=== PATIENT | male | born 1965 | race Caucasian/White ===

== ENCOUNTER 2018-07-26 11:19 | Outpatient (CLI) | payer MEDICARE, SELFPAY ==
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
== END 2018-07-26 11:39 ==
PROVIDERS: PCP Physician Assistant Medical; Visit Provider Specialist/Technologist Athletic Trainer
DX: M54.2 Cervicalgia (principal); M25.511 Pain in right shoulder; M54.6 Pain in thoracic spine; M47.813 Spondylosis without myelopathy or radiculopathy, cervicothoracic region
CPT/HCPCS: 72050; 72072; 73030

== ENCOUNTER 2018-09-17 12:58 | Outpatient (REF) | payer MEDICARE, SELFPAY ==
[2018-09-17 21:58] LABS: Absolute Basophil Count 0.03 k/cumm (0.0-0.2); Absolute Eosinophil Count 0.18 k/cumm (0.0-0.7); Absolute Lymphocyte Count 1.71 k/cumm (1.2-3.4); Absolute Monocyte Count 0.63 k/cumm (0.11-0.7); Absolute Neutrophil Count 3.81 k/cumm (1.2-6.7); Basophils % 0.5; Eosinophils % 2.8; HCT 44.5 % (40.0-50.0); HGB 15.1 g/dL (13.5-17.5); Lymphocytes % 26.9; Mean Corp. HGB Concentration 33.9 g/dL (32.0-36.0); Mean Corpuscular Hemoglobin 31.6 pg (27.0-33.0); Mean Corpuscular Volume 93.1 fL (80-95); Mean Platelet Volume 10.3 fL (8.0-11.0); Monocytes % 9.9; Neutrophils % 59.9; Platelet Count 237 x1000/uL (130-400); RBC 4.78 m/cumm (4.50-6.00); RBC Distribution Width 12.5 % (11.8-14.1); White Blood Cell Count 6.36 k/cumm (4.4-10.8)
[2018-09-17 22:15] LABS: ALT 46 U/L (12-78); AST 66 U/L (15-37); Albumin 4.2 g/dL (3.4-5.0); Alkaline Phosphatase 97 U/L (46-116); Amylase 70 U/L (25-115); Anion Gap 11.8 mmol/L (3-11); BUN 10 mg/dL (7-18); CO2 31.2 mmol/L (21.0-32.0); CREATININE 0.86 mg/dL (0.70-1.30); Calcium 9.8 mg/dL (8.5-10.1); Chloride 96 mmol/L (98-107); Glucose 106 mg/dL (70-100); Potassium 4.3 mmol/L (3.5-5.1); Sodium 139 mmol/L (136-145); Total Protein 7.9 g/dL (6.4-8.2)
== END 2018-09-17 13:18 ==
LOC: NCHCN 12:58
PROVIDERS: PCP Physician Assistant Medical; Visit Provider Nurse Practitioner Family
DX: R10.9 Unspecified abdominal pain (principal); M54.2 Cervicalgia; M54.6 Pain in thoracic spine
CPT/HCPCS: 80053; 82150; 85025

== ENCOUNTER 2018-09-24 00:43 | Outpatient (CLI) | payer MEDICARE, SELFPAY ==
[2018-09-24] MEDS: Breeza Beverage 473 ML BTL PO ×2 (08:42→08:43)
[2018-09-24] MEDS: Omnipaque 350 MG/ML 50 ML BTL PO (08:42)
--- NOTE | 2018-09-24 10:09 | DI.CT_ITS ---
SYMPTOMS/DIAGNOSIS: ABDOMINAL PAIN, R10.9, BLOATING, RIGHT UPPER QUADRANT PAIN, NO SURGERY ABDOMINAL AND PELVIC CT: CT examination of the abdomen and pelvis was performed with a bolus infusion of 100 cc of Omnipaque 350 and ingestion of dilute barium. Images obtained through the lung bases are unremarkable. Note is made of a moderate-sized hiatal hernia. Liver, spleen, pancreas, gallbladder and bile ducts are unremarkable in appearance. Adrenals and kidneys appear normal. No urinary tract calcification or obstruction. No significant abdominal wall hernia identified. No abdominal or pelvic adenopathy seen. Appendix appears normal. No evidence of diverticulitis or bowel obstruction. Bladder is moderately distended and has a somewhat irregularly thickened wall, question chronic bladder outlet obstruction versus cystitis. CONCLUSION: 1. Hiatal hernia. 2. Questionable bladder wall thickening, cystitis versus chronic outlet obstruction.
[2018-09-24] MEDS: Omnipaque 350 MG/ML 100 ML BTL IJ (10:10)
== END 2018-09-24 01:03 ==
PROVIDERS: PCP Nurse Practitioner Family; Visit Provider Nurse Practitioner Family
DX: R10.11 Right upper quadrant pain (principal); R14.0 Abdominal distension (gaseous); K44.9 Diaphragmatic hernia without obstruction or gangrene; N32.9 Bladder disorder, unspecified
CPT/HCPCS: 74177; J3490; Q9967

== ENCOUNTER 2018-09-27 01:31 | Outpatient (CLI) | payer MEDICARE, SELFPAY ==
--- NOTE | 2018-09-27 09:39 | DI.COMBO_ITS ---
SYMPTOM/DIAGNOSIS: NECK PAIN, M54.2. THORACIC BACK PAIN M54.9 MR C-SPINE: The examinations were carried out according to the usual protocol. MR C-SPINE: The vertebral bodies are normal. The alignment of the vertebra is normal. The cervical medullar junction is unremarkable. The spinal cord appears intrinsically normal. Note is made of varying degrees of disc degeneration. At C2-C3 there are small osteophytes resulting in right sided mild left neural foraminal narrowing without significant spinal stenosis. At C3-C4 disc osteophyte complex prominence is noted combining with uncinate hypertrophy and flattening of the joints of Luschka with resultant mild to moderate right and mid left neural foraminal narrowing without significant spinal stenosis. At C4-C5 osteophytic changes are demonstrated and there is mild right and very mild left neural foraminal narrowing without significant spinal stenosis. At C5-C6 there is disc osteophyte complex prominence with apparent uncinate hypertrophy with resultant moderate right and mild to moderate left neural foraminal stenosis and narrowing without significant spinal stenosis. ' Evaluation of the C6-C7 level reveals disc osteophyte complex which in combination with uncinate hypertrophy leads to mild right and mild to moderate left neural foraminal stenosis without evidence of spinal stenosis. At C7-T1 small osteophytic spurring is identified without significant neuroforaminal or spinal stenosis. SUMMARY: Multi-level degenerative disc disease is demonstrated as described above and there is multi-level foraminal stenosis without evidence of significant spinal stenosis.
--- NOTE | 2018-09-27 10:13 | DI.MRI_ITS ---
SYMPTOM/DIAGNOSIS: THORACIC BACK PAIN, M54.9 THORACIC SPINE MRI: There is no evidence of fracture. The alignment appears normal. The cord signal is normal. There are small endplate osteophytes and mild disc bulging as well as Schmorl's nodes at multiple levels. There is no significant disc herniation or central canal stenosis. No neural foraminal narrowing is seen. IMPRESSION: Degenerative disc changes. No significant disc herniation, central canal stenosis or neural foraminal narrowing.
--- NOTE | 2018-09-27 16:05 | DI.VRAD_ITS ---
EXAM: MR Thoracic Spine Without Contrast EXAM DATE/TIME: 09/27/2018 10:10 AM CLINICAL HISTORY: 53 years old, male; Pain; Pain in thoracic spine; Without myelpathy or radiculopathy; Patient HX: Thoracic back pain TECHNIQUE: Multiplanar magnetic resonance images of the thoracic spine without intravenous contrast. COMPARISON: CR XR thoracic spine complete 07/26/2018 12:07 PM FINDINGS: Vertebral body heights are intact. Alignment is maintained. The spinal cord appears normal in signal. There are varying degrees of disc desiccation indicating intervertebral disc degeneration. There are multilevel Schmorl's nodes. A few small vertebral body hemangiomas are present. The visualized mediastinal and abdominal structures appear unremarkable. T1-2: Small broad-based central protrusion without significant neural foraminal narrowing or spinal stenosis. T2-3: No significant disc displacement. T3-4: Very small broad-based right paracentral protrusion without significant neural foraminal narrowing or spinal stenosis. T4-5: Small broad-based left paracentral protrusion without significant neural foraminal narrowing or spinal stenosis. T5-6: Small broad-based left paracentral protrusion without significant neural foraminal narrowing or spinal stenosis. T6-7: No significant disc displacement. T7-8: Very small broad-based central protrusion without significant neural foraminal narrowing or spinal stenosis. T8-9: Small broad-based central protrusion without significant neural foraminal narrowing or spinal stenosis. T9-10: Very small broad-based right paracentral protrusion without significant neural foraminal narrowing or spinal stenosis. T10-11: No significant disc displacement. T11-12: Very small bulge leading to very mild right neural foraminal narrowing without significant spinal stenosis. T12-L1: Very small broad-based right paracentral protrusion without significant neural foraminal narrowing or spinal stenosis. If surgery is considered, recommend level confirmation. IMPRESSION: Mild multilevel disc desiccation indicating intervertebral disk degeneration with small disc displacements as described. Dictated and Authenticated by: Jerome Cervantes MD. Ordering:SKY Branham MD
--- NOTE | 2018-09-27 16:09 | DI.VRAD_ITS ---
EXAM: MR Cervical Spine Without Contrast EXAM DATE/TIME: 09/27/2018 9:37 AM CLINICAL HISTORY: 53 years old, male; Pain; Neck pain; Patient HX: Neck pain. TECHNIQUE: Multiplanar magnetic resonance images of the cervical spine without contrast. COMPARISON: CR XR cervical spine comp 4-5V 07/26/2018 11:58 AM FINDINGS: Vertebral body heights are intact. Alignment is maintained. The cervicomedullary junction appears unremarkable. The spinal cord appears normal in signal. There are varying degrees of disc desiccation indicating intervertebral disc degeneration. C2-3: Small osteophytic ridge leading to mild right ovarian mild left neural foraminal narrowing without significant spinal stenosis. C3-4: Disc osteophyte complex combining with uncinate hypertrophy to lead to mild to moderate right and mild left neural foraminal narrowing without significant spinal stenosis. C4-5: Small osteophytic ridge leading to mild right and very mild left neural foraminal narrowing without significant spinal stenosis. C5-6: Disc osteophyte complex combining with uncinate hypertrophy to lead to moderate right and mild to moderate left neural foraminal narrowing without significant spinal stenosis. C6-7: Disc osteophyte complex combining with uncinate hypertrophy to lead to mild right and mild to moderate left neural foraminal narrowing without significant spinal stenosis. C7-T1: Small osteophytic ridge without significant neural foraminal narrowing or spinal stenosis. If surgery is considered, recommend level confirmation. IMPRESSION: Multilevel disc desiccation indicating intervertebral disk degeneration with disc displacements as described. Dictated and Authenticated by: Jerome Cervantes MD. Ordering:SKY Branham MD
== END 2018-09-27 01:51 ==
PROVIDERS: PCP Nurse Practitioner Family; Visit Provider Nurse Practitioner Family
DX: M54.2 Cervicalgia (principal); M54.6 Pain in thoracic spine; M25.78 Osteophyte, vertebrae; M50.33 Other cervical disc degeneration, cervicothoracic region
CPT/HCPCS: 72141; 72146

== ENCOUNTER 2018-10-04 19:11 | Outpatient (REF) | payer MEDICARE, SELFPAY | END 2018-10-04 19:31 | LOC: NCHCN 19:11 | PROVIDERS: PCP Nurse Practitioner Family; Visit Provider Nurse Practitioner Family | DX: R35.0 Frequency of micturition (principal); R11.2 Nausea with vomiting, unspecified | CPT/HCPCS: 87086 ==

== ENCOUNTER 2018-10-08 13:17 | Outpatient (REF) | payer MEDICARE, SELFPAY ==
[2018-10-11 13:12] LABS: Helicobacter pylori Ag, Feces Negative (NEGAT)
== END 2018-10-08 13:37 ==
LOC: NCHCN 13:17
PROVIDERS: PCP Nurse Practitioner Family; Visit Provider Nurse Practitioner Family
DX: R11.2 Nausea with vomiting, unspecified (principal); R10.9 Unspecified abdominal pain
CPT/HCPCS: 87338

== ENCOUNTER → 2018-10-23 13:17 | Outpatient (BNVA) | payer MEDICARE, SELFPAY | PROVIDERS: PCP Nurse Practitioner Family; Referring Provider Nurse Practitioner Family; Visit Provider Nurse Practitioner Gerontology | DX: N40.1 Benign prostatic hyperplasia with lower urinary tract symptoms (principal); R35.0 Frequency of micturition; N32.89 Other specified disorders of bladder | CPT/HCPCS: 99215 ==

== ENCOUNTER → 2018-10-26 10:43 | Outpatient (BNVA) | payer MEDICARE, SELFPAY | PROVIDERS: PCP Nurse Practitioner Family; Referring Provider Nurse Practitioner Family; Visit Provider Surgery | DX: R11.10 Vomiting, unspecified (principal); R19.7 Diarrhea, unspecified | CPT/HCPCS: 99203; 99213 ==

== ENCOUNTER 2018-11-01 12:36 | Outpatient (REF) | payer MEDICARE, SELFPAY ==
[2018-11-01 14:56] LABS: Bilirubin Negative (Negative); Blood Negative (Negative); Clarity Clear; Glucose Negative (Negative); Ketones Negative (Negative); Leukocyte Esterase Negative (Negative); Nitrite Negative (Negative); Urobilinogen 0.2 EU/dL (Up TO 0.2)
[2018-11-02 12:44] LABS: Campylobacter PCR SEE COMMENTS; Salmonella PCR SEE COMMENTS; Shiga Toxin PCR SEE COMMENTS; Shigella/Enteroinvasive Ecoli SEE COMMENTS
== END 2018-11-01 12:56 ==
LOC: LBN 12:36
PROVIDERS: Surgery; PCP Nurse Practitioner Family; Visit Provider Nurse Practitioner Gerontology
DX: N32.89 Other specified disorders of bladder (principal); N40.1 Benign prostatic hyperplasia with lower urinary tract symptoms; R35.0 Frequency of micturition; R19.7 Diarrhea, unspecified
CPT/HCPCS: 87329; 87505; 81003; 87230; 87324

== ENCOUNTER 2018-11-06 09:14 | Day surgery (SDC) | payer MEDICARE, SELFPAY ==
--- NOTE | 2018-11-06 06:43 | W.PM.ENDDOP ---
Date of service: 11/06/18 Time of Service: 10:10 Endoscopy Report DATE OF PROCEDURE: 11/06/18 PRE-OP DIAGNOSIS: Diarrhea and Vomiting POST-OP DIAGNOSIS: other (Duodenitis, gastritis, esophagitis, Hiatal hernia, Colon polyps, ?iliitis) PROCEDURE: 1. EGD with biopsies by cold forceps 2. Colonoscopy with polypectomy by cold forceps and hot snare 3. 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 Morales is a pleasant 53 year old male with emesis most ly in the am and diarrhea who was seen in the office to discuss an EGD and Colonoscopy. Risks, benefits and complications have been reviewed. Complications include but are not limited to bleeding, pain, perforation, missed small lesion/polyp, sore throat, aspiration and adverse reaction to the medications. Questions were entertained and answered to their satisfaction and they wished to proceed. No guarantees were given or implied. PREP: Miralax/Dulcolax PROCEDURE START TIME: 10:10 PROCEDURE END TIME: 11:05 COLONOSCOPY RETRACTION TIME: 37 FINDINGS: 1. Upper endoscopy- Mild inflammation of the duodenum, severe inflammation of the stomach and severe inflammation of the esophagus 2. Large rectal polyp concerning for cancer 3. 2 other polyps PROCEDURE DESCRIPTION: After informed consent was obtained the patient was take to the procedure room and placed in a supine position. Monitors were applied and a time out was done. The patients name, date of , procedure type, allergies to medications and metal in their body was reviewed. A bite block was placed and the patient was sedated. Once sedated and comfortable the gastroscope was advanced through the oropharynx which was grossly normal into the esophagus. The proximal and mid-esophagus were normal. In the distal esophagus there was severe inflammation as well as some scar tissue. The scope was advanced into the stomach and through the pylorus into the 3rd portion of the duodenum. The duodenum was noted to have some mild inflammation. Biopsies were done of the first part of the duodenum. The scope was retracted back into the stomach and biopsies were done to rule out H. pylori. There were no ulcers. The scope was retro-flexed. The cardia and fundus were noted to be normal. There was a small sliding hiatal hernia noted. The scope was retracted back into the esophagus and biopsies were done of the GE junction to rule out Pugh's. The Z line was regular. The GE junction was at 32 cm. While the patient was still sedated they were placed in a left decubitous position. A rectal exam was done. External exam was normal. Internal exam revealed a normal sphincter tone and no palpable masses. The scope was then introduced and retro-flexed. No internal hemorrhoids were identified. The scope was then advanced to the cecum without difficulty. The TI and appendiceal orifice were identified. The prep was adequate. The scope was advanced into the terminal ileum for about 15 cm. Some mild inflammation was noted and biopsies were done to rule out colitis. The scope was then slowly retracted over 37 minutes back into the rectum. One polyp was removed in the proximal descending colon with cold forceps. Another descending pedunculated colon polyp was removed with a hot snare. Another larger polyp, measuring about 3 cm, was removed in the rectum with a hot snare. The mucosa was then tattooed with 2 cc of blue dye. The scope was removed and the patient was woken up and taken back to Same day surgery in stable condition. The patient tolerated the procedure well and there were no immediate complications. Follow up: Depends on final pathology. Follow up in 2-3 weeks.
--- NOTE | 2018-11-06 06:53 | W.PM.DSUDISC ---
Discharge Plan Disposition Patient Disposition: HOME Condition: Good Discharge Details Reason For Visit: Diarrhea and Vomiting Attending Provider: Martina Lopez Primary Care Provider: Carrol Fournier Home Meds and New Rx's Prescriptions: New omeprazole 40 mg capsule,delayed release(DR/EC) 40 mg PO BID Qty: 60 RF: 1 Continued morphine [MS Contin] 60 mg tablet extended release 60 mg PO Q8H RF: 0 morphine [MS Contin] 15 mg tablet extended release 15 mg PO Q8H RF: 0 Narcan 4 mg/actuation spray,non-aerosol 1 spray BERNARDO ONCE PRNRF: 0 nitroglycerin 0.4 MG tablet, sublingual 0.4 mg Sublingual PRN RF: 0 oxycodone 10 MG tablet 10 mg PO Q6H PRN RF: 0 Discontinued polyethylene glycol 3350 17 gram powder in packet 255 g PO DAILY Qty: 15 RF: 0 bisacodyl [Dulcolax (bisacodyl)] 5 mg tablet,delayed release (DR/EC) 5 mg PO ONCE Qty: 4 RF: 0 ibuprofen 800 MG tablet 800 mg PO Q8H PRN RF: 0 Discharge Instructions Instructions: Colonoscopy (DC), Upper Endoscopy (DC), Diet for Stomach Ulcers and Gastritis (GEN), Duodenitis (DC), Gastritis (DC), Esophagitis (DC), Colorectal Polyps (DC) Additional Instructions: Findings: Inflammation in the small bowel, stomach and esophagus Large polyp in the rectum and 2 other smaller polyps Follow up: 2-3 weeks Please call if you develop: fevers >101.5 Nausea or Vomiting Abdominal pain that is not transient DAY SURGERY UNIT POST COLONOSCOPY INSTRUCTIONS 1. Because there will be medication in your system for the next 24 hours, you may feel a little sleepy. Your coordination will be affected. Therefore: a. Do not drive or operate dangerous equipment for 24 hours. b. Do not drink alcohol beverages for 24 hours (not even beer). c. Plan to go home and rest for the day. 2. Generally there are no restrictions on your activity after a day or so has gone by, but you may feel a bit fatigued for a few days. 3 After you arrive home you may have a light meal and return to a normal diet as you can tolerate it without feeling sick to your stomach. 4. After surgery, you may feel pain or discomfort. This should be only transient, but if it persists please contact your doctor. 5. If there are any questions regarding the findings of your procedure, please feel free to contact your doctor. 6. If you are unable to contact your doctor with a problem, contact the hospital at [phone]. 7. Continue all your regular medications unless directed otherwise. I understand the above instructions and have no questions. Signature of Patient or Responsible Adult Escort Date/Time Name of Responsible Adult Escort Signature of Nurse Date/Time Referrals: Martina Lopez MD [ [facility] STAFF PHYSICIAN] - Activity:: Activity as Tolerated Diet:: low acid Discharge Orders Discharge Orders: Discharge Order (Routine); Ordered 11/06/18 Ordered By: Martina Lopez DS: Diagnosis Discharge Diagnosis (1) H/O esophagogastroduodenoscopy: Status: Chronic (2) S/P colonoscopy: Status: Acute (3) Colorectal polyp detected on colonoscopy: Status: Acute (4) Esophagitis determined by endoscopy: Status: Acute (5) Gastritis and duodenitis: Status: Acute
[2018-11-06 09:37] VITALS: BP 126/100; PULSE 120; RESP 18; TEMP 36.2; O2SAT 99
[2018-11-06] MEDS: Lactated Ringers 1,000 ML 80 ML IV (09:54)
--- NOTE | 2018-11-06 10:12 | BOWEL_PTH ---
PATIENT: Ismael Morales LOC: [facility] U#:[id number] AGE/SX: 53/M ROOM: RE11/06/[address]: Martina Lopez MD : 1965 BED: DIS: 11/06/2018 SPEC #: [id number] RECD: 11/06/18 12:52 STATUS: BRANDY RE #: [id number] JENSEN: 11/06/18 10:[address]: Martina Lopez DEPT: Surgical Specimen RECD BY: Breanne Harrell ENTERED: 11/06/18 12:54 SP TYPE: Bowel OTHR DR: Carrol Fournier Tissues: 1 - BIOPSY BOWEL 2 - STOMACH BIOPSY 3 - ESOPHAGUS BIOPSY 4 - BIOPSY BOWEL 5 - BIOPSY BOWEL 6 - BIOPSY BOWEL 7 - BIOPSY BOWEL Procedures: GROSS AND MICRO LEVEL 4 Comments: [id number]
[2018-11-06 11:47] VITALS: BP 147/101; PULSE 96; RESP 18; TEMP 36.8; O2SAT 96
== END 2018-11-06 12:50 | disposition home or self-care (01) ==
LOC: SUR 09:15
PROVIDERS: PCP Nurse Practitioner Family; Visit Provider Surgery
PROC: (CPT 45385; principal; 2018-11-06 10:15)
DX: R19.7 Diarrhea, unspecified (principal); D12.4 Benign neoplasm of descending colon; D12.8 Benign neoplasm of rectum; K63.5 Polyp of colon; R11.2 Nausea with vomiting, unspecified; K29.00 Acute gastritis without bleeding; K31.89 Other diseases of stomach and duodenum; K21.0 Gastro-esophageal reflux disease with esophagitis; K44.9 Diaphragmatic hernia without obstruction or gangrene; F17.210 Nicotine dependence, cigarettes, uncomplicated
CPT/HCPCS: 45385; 45380; 45381; 43239; 88305; J3010

== ENCOUNTER → 2019-02-01 08:23 | Outpatient (BNVA) | payer MEDICARE, SELFPAY | PROVIDERS: PCP Nurse Practitioner Family; Referring Provider Nurse Practitioner Family; Visit Provider Surgery | DX: R10.31 Right lower quadrant pain (principal); G89.29 Other chronic pain | CPT/HCPCS: 99213 ==

== ENCOUNTER → 2019-03-14 12:47 | Outpatient (BNVA) | payer MEDICARE, SELFPAY | PROVIDERS: PCP Nurse Practitioner Family; Referring Provider Nurse Practitioner Family; Visit Provider Psychiatry & Neurology Neurology | DX: G25.0 Essential tremor (principal); F44.4 Conversion disorder with motor symptom or deficit | CPT/HCPCS: 99214 ==

== ENCOUNTER 2019-03-27 10:37 | Outpatient (REF) | payer MEDICARE, SELFPAY ==
[2019-03-27 21:18] LABS: Calculated LDL 203 mg/dL; Cholesterol 280 mg/dL (50-200); Glucose 111 mg/dL (70-100); HDL Cholesterol 65 mg/dL (40-60); Triglyceride 64 mg/dL (30-150)
== END 2019-03-27 10:57 ==
LOC: NCHCN 10:37
PROVIDERS: PCP Nurse Practitioner Family; Visit Provider Nurse Practitioner Family
DX: R03.0 Elevated blood-pressure reading, without diagnosis of hypertension (principal); R25.1 Tremor, unspecified; E78.00 Pure hypercholesterolemia, unspecified; G89.29 Other chronic pain; F11.20 Opioid dependence, uncomplicated; M50.30 Other cervical disc degeneration, unspecified cervical region; M51.34 Other intervertebral disc degeneration, thoracic region
CPT/HCPCS: 80061; 82947; 83721

== ENCOUNTER → 2019-05-13 10:01 | Outpatient (BNVA) | payer MEDICARE, SELFPAY | PROVIDERS: PCP Nurse Practitioner Family; Visit Provider Nurse Practitioner Adult Health | DX: R25.1 Tremor, unspecified (principal); Z79.891 Long term (current) use of opiate analgesic; F41.9 Anxiety disorder, unspecified | CPT/HCPCS: 99213 ==

== ENCOUNTER 2019-05-28 15:56 | Outpatient (REF) | payer MEDICARE, SELFPAY ==
[2019-05-28 21:41] LABS: Abs Immature Grans 0.01 k/cumm (0.0-0.09); Absolute Basophil Count 0.04 k/cumm (0.0-0.2); Absolute Eosinophil Count 0.18 k/cumm (0.0-0.7); Absolute Lymphocyte Count 1.62 k/cumm (1.2-3.4); Absolute Monocyte Count 0.48 k/cumm (0.11-0.7); Absolute Neutrophil Count 2.88 k/cumm (1.2-6.7); Basophils % 0.8; Eosinophils % 3.5; HCT 43.3 % (40.0-50.0); HGB 14.2 g/dL (13.5-17.5); Immature Grans % 0.2; Lymphocytes % 31.1; Mean Corp. HGB Concentration 32.8 g/dL (32.0-36.0); Mean Corpuscular Hemoglobin 30.7 pg (27.0-33.0); Mean Corpuscular Volume 93.7 fL (80-95); Mean Platelet Volume 10.6 fL (8.0-11.0); Monocytes % 9.2; Neutrophils % 55.2; Platelet Count 246 x1000/uL (130-400); RBC 4.62 m/cumm (4.50-6.00); White Blood Cell Count 5.21 k/cumm (4.4-10.8)
[2019-05-28 21:59] LABS: HDL Cholesterol 59 mg/dL (40-60); LDL CHOLESTEROL 118 mg/dL (<100)
[2019-05-29 09:13] LABS: ALT 57 U/L (16-63); AST 72 U/L (15-37); Creatine Kinase 145 U/L (39-308)
== END 2019-05-28 16:16 ==
LOC: NCHCN 15:56
PROVIDERS: PCP Nurse Practitioner Family; Visit Provider Nurse Practitioner Family
DX: E78.5 Hyperlipidemia, unspecified (principal); R23.8 Other skin changes; I10 Essential (primary) hypertension
CPT/HCPCS: 82550; 83721; 83718; 84450; 84460; 85025

== ENCOUNTER 2019-07-19 02:19 | Outpatient (CLI) | payer MEDICARE, SELFPAY | END 2019-07-19 02:39 | PROVIDERS: PCP Nurse Practitioner Family; Visit Provider Nurse Practitioner Family | DX: R00.2 Palpitations (principal); I49.1 Atrial premature depolarization; I49.3 Ventricular premature depolarization | CPT/HCPCS: 93225 ==

== ENCOUNTER 2019-07-22 15:12 | Outpatient (CLI) | payer MEDICARE, SELFPAY ==
--- NOTE | 2019-07-23 08:04 | W.HOLTRPT ---
Holter Monitor Report Holter Monitor Note: This is a 48-hour Holter monitor worn for the indication of palpitations?the majority of beats were normal sinus with a mean heart rate of 90, minimum heart rate of 60, maximum heart rate of 165 bpm. ?There were no episodes of supraventricular tachycardia. There were rare PACs (less than 1%). There were no runs of multiple PACs. ?There were no episodes of ventricular tachycardia. There were rare (less than 1%) single ventricular ectopic beats. There were no couplets or triplets. ?There were no episodes of atrial fibrillation. ?There were no pauses greater than 3 seconds and no episodes of high degree heart block. Date of service: 07/23/19 Time of Service: 08:04
== END 2019-07-22 15:32 ==
PROVIDERS: PCP Nurse Practitioner Family; Visit Provider Nurse Practitioner Family
DX: R00.2 Palpitations (principal); I49.1 Atrial premature depolarization; I49.3 Ventricular premature depolarization
CPT/HCPCS: 93226

== ENCOUNTER 2019-07-23 08:04 | Outpatient (CLI) | payer MEDICARE, SELFPAY | END 2019-07-23 08:24 | PROVIDERS: PCP Nurse Practitioner Family; Referring Provider Nurse Practitioner Family; Visit Provider Internal Medicine Cardiovascular Disease | DX: R00.2 Palpitations (principal); I49.1 Atrial premature depolarization; I49.3 Ventricular premature depolarization | CPT/HCPCS: 93227 ==

== ENCOUNTER 2019-12-12 12:27 | Outpatient (REF) | payer MEDICARE, SELFPAY ==
[2019-12-12 19:46] LABS: Absolute Basophil Count 0.03 k/cumm (0.0-0.2); Absolute Eosinophil Count 0.23 k/cumm (0.0-0.7); Absolute Lymphocyte Count 2.27 k/cumm (1.2-3.4); Absolute Monocyte Count 0.66 k/cumm (0.11-0.7); Absolute Neutrophil Count 3.46 k/cumm (1.2-6.7); Basophils % 0.5; Eosinophils % 3.5; HCT 45.1 % (40.0-50.0); HGB 15.2 g/dL (13.5-17.5); Lymphocytes % 34.1; Mean Corp. HGB Concentration 33.7 g/dL (32.0-36.0); Mean Corpuscular Hemoglobin 31.8 pg (27.0-33.0); Mean Corpuscular Volume 94.4 fL (80-95); Mean Platelet Volume 10.1 fL (8.0-11.0); Monocytes % 9.9; Platelet Count 271 x1000/uL (130-400); RBC 4.78 m/cumm (4.50-6.00); RBC Distribution Width 13.3 % (11.8-14.1); White Blood Cell Count 6.65 k/cumm (4.4-10.8)
[2019-12-12 20:00] LABS: ALT 61 U/L (16-63); AST 72 U/L (15-37); Albumin 3.8 g/dL (3.4-5.0); Alkaline Phosphatase 94 U/L (46-116); Anion Gap 8.6 mmol/L (3-11); BUN 5 mg/dL (7-18); Bilirubin, Total 0.5 mg/dL (0.2-1.0); CO2 31.4 mmol/L (21.0-32.0); CREATININE 0.88 mg/dL (0.70-1.30); Calcium 8.9 mg/dL (8.5-10.1); Chloride 98 mmol/L (98-107); Glucose 84 mg/dL (74-106); Potassium 4.8 mmol/L (3.5-5.1); Sodium 138 mmol/L (136-145); Total Protein 7.4 g/dL (6.4-8.2)
== END 2019-12-12 12:47 ==
LOC: NCHCN 12:27
PROVIDERS: PCP Nurse Practitioner Family; Visit Provider Nurse Practitioner Family
DX: I10 Essential (primary) hypertension (principal); E78.5 Hyperlipidemia, unspecified; F17.209 Nicotine dependence, unspecified, with unspecified nicotine-induced disorders; R14.0 Abdominal distension (gaseous); M51.34 Other intervertebral disc degeneration, thoracic region; M50.30 Other cervical disc degeneration, unspecified cervical region
CPT/HCPCS: 80053; 85025

== ENCOUNTER 2020-06-17 14:59 | Emergency (ER) | payer MEDICARE, SELFPAY ==
[2020-06-17 15:06] VITALS: BP 158/105; PULSE 97; RESP 16; TEMP 36.9; O2SAT 97
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
--- NOTE | 2020-06-17 15:30 | DI.RAD_ITS ---
EXAM: XR FOREARM RT CLINICAL HISTORY: Eval hardware TECHNIQUE: COMPARISON: CR RIGHT FOREARM from 01/08/2017 FINDINGS: Two views were obtained. There is plate and screw fixation of the distal half of the radius. No acu te fracture seen. IMPRESSION: No evidence of acute fracture. RADIATION DOSE DELIVERED: Total DLP
--- NOTE | 2020-06-17 15:36 | DI.RAD_ITS ---
EXAM: XR HAND RT COMPLETE CLINICAL HISTORY: Injury 2 weeks ago, r/o fracture TECHNIQUE: COMPARISON: CR RIGHT HAND COMPLETE from 04/27/2009 FINDINGS: Three views of the hand were obtained. There is plate and screw fixation of distal radius. There ar e minimal degenerative changes of the IP joints. There is no evidence of an acute fracture or disloc ation. Note is made of an old healed 5th metacarpal head fracture. IMPRESSION: No acute fracture. RADIATION DOSE DELIVERED: Total DLP
== END 2020-06-17 16:17 | disposition home or self-care (01) ==
PROVIDERS: Emergency Provider Registered Nurse Emergency; PCP Nurse Practitioner Family
DX: S67.21XA Crushing injury of right hand, initial encounter (principal); W27.8XXA Contact with other nonpowered hand tool, initial encounter; R20.2 Paresthesia of skin
CPT/HCPCS: 99284; 73090; 73130; L3908

== ENCOUNTER 2020-07-29 12:51 | Outpatient (REF) | payer MEDICARE, SELFPAY ==
[2020-07-29 22:26] LABS: ALT 81 U/L (16-63); AST 101 U/L (15-37); Anion Gap 8.3 mmol/L (3-11); BUN 9 mg/dL (7-18); CO2 29.7 mmol/L (21.0-32.0); CREATININE 0.87 mg/dL (0.70-1.30); Calcium 9.7 mg/dL (8.5-10.1); Chloride 97 mmol/L (98-107); Glucose 103 mg/dL (74-106); HDL Cholesterol 54 mg/dL (40-60); LDL CHOLESTEROL 165 mg/dL (<100); Potassium 4.5 mmol/L (3.5-5.1); Sodium 135 mmol/L (136-145)
[2020-07-29 22:38] LABS: Creatine Kinase 172 U/L (39-308)
== END 2020-07-29 13:11 ==
LOC: NCHCN 12:51
PROVIDERS: PCP Nurse Practitioner Family; Visit Provider Nurse Practitioner Family
DX: E78.5 Hyperlipidemia, unspecified (principal); M50.30 Other cervical disc degeneration, unspecified cervical region; M51.34 Other intervertebral disc degeneration, thoracic region; I10 Essential (primary) hypertension; R25.1 Tremor, unspecified; R73.03 Prediabetes; R20.2 Paresthesia of skin
CPT/HCPCS: 80048; 82550; 83721; 83718; 84450; 84460

== ENCOUNTER 2020-08-26 13:07 | Outpatient (REF) | payer MEDICARE, SELFPAY ==
[2020-08-26 21:18] LABS: Iron 99 ug/dL (65-175); Total Iron Binding Capacity 359 ug/dL (250-450); Transferrin Sat 28 % (20-55)
[2020-08-26 21:47] LABS: ALT 58 U/L (16-63); AST 67 U/L (15-37); Alkaline Phosphatase 92 U/L (46-116); Bilirubin, Total 0.4 mg/dL (0.2-1.0); Ferritin 152 ng/mL (26-388); TSH (W/Ref FT4) 1.28 uIU/mL (0.36-3.74); Total Protein 7.5 g/dL (6.4-8.2)
[2020-08-26 21:55] LABS: Bilirubin, Direct 0.17 mg/dL (0.00-0.20)
[2020-08-28 09:32] LABS: Hepatitis C Ab w Rflx HCV PCR Negative (Negative)
[2020-08-28 10:01] LABS: Hepatitis B Surface Ag Negative (Negative)
== END 2020-08-26 13:27 ==
LOC: NCHCN 13:07
PROVIDERS: PCP Nurse Practitioner Family; Visit Provider Nurse Practitioner Family
DX: R74.8 Abnormal levels of other serum enzymes (principal); I10 Essential (primary) hypertension; R73.03 Prediabetes; E78.5 Hyperlipidemia, unspecified; Z11.59 Encounter for screening for other viral diseases; R25.1 Tremor, unspecified
CPT/HCPCS: 80076; 86803; 87340; 82728; 83540; 83550; 84443

== ENCOUNTER 2020-10-12 01:31 | Outpatient (CLI) | payer OTHER, SELFPAY ==
--- NOTE | 2020-10-12 | DI.US_ITS ---
EXAM: US ABDOMEN CLINICAL HISTORY: ELEVATED LIVER ENZYMES,R74.8,? FATTY LIVER TECHNIQUE: Ultrasound of complete upper abdomen performed using standard protocol. COMPARISON: US SCROTUM US from 12/20/[address] scan performed 09/24/2018 FINDINGS: There is no ascites evident. LIVER: Liver is hyperechoic indicating steatosis. There are no discrete focal hepatic lesions identi fied. GALLBLADDER/BILIARY: There are no gallstones. No gallbladder wall edema nor pericholecystic fluid. The common hepatic duct isnot dilated, measuring 3-4mm at the level of sera hepatis. PANCREAS: Less than optimally seen due to overlying bowel gas. However, no obvious abnormality ident ified. SPLEEN: The spleen is not enlarged and there are no intrasplenic lesions evident. KIDNEYS:Kidneys exhibit normal size with no evidence of solid mass, calculus, nor hydronephrosis. No cortical cysts evident. ABDOMINAL AORTA: Mostly obscured by overlying bowel gas. The mid and distal abdominal aorta were not able to be identified. IVC: Normal diameter where visualized. IMPRESSION: 1. No evidence of cholelithiasis nor dilatation of the biliary tree. 2. Hepatic steatosis. Correlation with appropriate hepatic blood work is recommended. 3. There is no ascites. 4. Abdominal aorta was not well seen due to overlying bowel gas. DATA REPOSITORY:
== END 2020-10-12 01:51 ==
PROVIDERS: PCP Nurse Practitioner Family; Visit Provider Nurse Practitioner Family
DX: K76.0 Fatty (change of) liver, not elsewhere classified
CPT/HCPCS: 76700

== ENCOUNTER 2020-10-18 00:29 | Emergency (ER) | payer OTHER, SELFPAY ==
--- NOTE | 2020-10-18 00:30 | RT.EKG_ITS ---
APPROVED REPORT Exam: Resting ECG Patient Location: E HR:109 bpm ECG Measurements Heart Rate 109 AXIS OK 147 P 23 QRSd 96 QRS -29 QT 330 T 71 QTc 444 Conclusion Sinus tachycardia...rate> 99 Probable left atrial enlargement...P >50mS, <-0.10mV V1
--- NOTE | 2020-10-18 00:30 | DI.CT_ITS ---
EXAM: CT ABDOMEN PELVIS WO CLINICAL HISTORY: abdominal distention, ?ascites and pulmonary edema. TECHNIQUE: Imaging Protocol: Axial computed tomography images with coronal and sagittal reformatted images were created and reviewed. FINDINGS: ABDOMEN: Lung Bases: The is modest changes are seen in the lung bases. There is a moderate size hiatal hernia . There is scarring in the lingula. Liver: Normal density. No measurable mass. Gallbladder and biliary tract: No radiodense calculus or biliary ductal dilation. Pancreas: Normal density, no abnormal calcifications or inflammatory process. Spleen: Normal. Kidneys: Normal size, contour and axis.No radiodense stones or obstructive uropathy. No masses seen. Adrenal glands: No mass is seen. Lymph nodes: Within normal limits. Abdominal Aorta: Abdominal portion non-dilated. Atherosclerosis. PELVIS: Bladder:Symmetric distention, no gross wall thickening. Bowel: No obstruction or bowel wall thickening. The appendix measures 1.1 cm in diameter and contains high density material. No Elaine appendiceal inflammatory changes are seen to suggest acute appendici tis. The appendix has a similar appearance on the prior examination from 09/24/2018. Colonic diverti culosis but no evidence of acute diverticulitis. Peritoneal cavity: No ascites, collection or mesenteric inflammatory response Reproductive organs: Within normal limits. Bones: Degenerative changes. Soft Tissues: Within normal limits. IMPRESSION: No acute abdominal or pelvic process. No evidence of abdominal or pelvic ascites. RADIATION DOSE DELIVERED: 859.44mGy.cm Total DLP DATA REPOSITORY: All CT scans at this facility are submitted to the National Radiology Data Registry (NRDR) Dose Index Registry (DIR) with the [employer] ([employer]). RADIATION OPTIMIZATION: All CT scans at this facility use at least one of these dose optimization te chniques: automated exposure control; mA and/or kV adjustment per patient size (includes targeted exa ms where dose is matched to clinical indication); or iterative reconstruction.
[2020-10-18 00:33] VITALS: BP 152/119; PULSE 125; RESP 20; TEMP 36.5; O2SAT 98
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
[2020-10-18] MEDS: LORazepam 2 MG/ML VIAL 1 MG IVP (01:03)
[2020-10-18 01:07] LABS: Abs Immature Grans 0.03 10^3/uL (0.0-0.06); Absolute Basophil Count 0.06 10^3/uL (0.0-0.2); Absolute Lymphocyte Count 1.73 10^3/uL (1.2-3.4); Absolute Monocyte Count 0.67 10^3/uL (0.1-0.8); Absolute Neutrophil Count 6.71 10^3/uL (1.2-6.7); Basophils % 0.6; Eosinophils % 1.1; HCT 42.5 % (40.0-50.0); HGB 14.5 g/dL (13.5-17.5); Immature Grans % 0.3; Lymphocytes % 18.6; MCH 30.7 pg (27.0-33.0); MCHC 34.1 % (32.0-36.0); MCV 89.9 fL (80-95); MPV 8.9 fL (8.0-11.0); Monocytes % 7.2; Neutrophils % 72.2; Nucleated RBC 0 %; Platelet Count 249 10^3/uL (130-400); RBC 4.73 10^6/uL (4.36-5.78); RDW 13.1 % (11.8-14.1); RDW-SD 43.1 fL
[2020-10-18 01:12] VITALS: BP 184/97; PULSE 110; RESP 20; O2SAT 97
[2020-10-18 01:26] LABS: Lipase 100 U/L (73-393); Magnesium 1.7 mg/dL (1.8-2.4)
[2020-10-18 01:32] LABS: ALT 31 U/L (16-63); AST 35 U/L (15-37); Albumin 4.1 g/dL (3.4-5.0); Alkaline Phosphatase 97 U/L (46-116); Anion Gap 11.3 mmol/L (3-11); BUN 8 mg/dL (7-18); Bilirubin, Direct 0.23 mg/dL (0.00-0.20); Bilirubin, Total 0.8 mg/dL (0.2-1.0); CO2 25.7 mmol/L (21.0-32.0); CREATININE 0.93 mg/dL (0.70-1.30); Calcium 9.4 mg/dL (8.5-10.1); Chloride 100 mmol/L (98-107); Glucose 121 mg/dL (74-106); Potassium 3.5 mmol/L (3.5-5.1); Sodium 137 mmol/L (136-145); Total Protein 7.7 g/dL (6.4-8.2)
--- NOTE | 2020-10-18 01:39 | DI.VRAD_ITS ---
PROCEDURE INFORMATION: Exam: CT Abdomen And Pelvis Without Contrast Exam date and time: 10/18/2020 12:39 AM Age: 55 years old Clinical indication: Bloating; Patient HX: Abdominal distension, ? ascites TECHNIQUE: Imaging protocol: Computed tomography of the abdomen and pelvis without contrast. COMPARISON: CT Abdomen^ROUTINE ABDOMEN PELVIS WITH CONTRAST (Adult) 09/24/2018 9:59 AM FINDINGS: Mediastinal space: Moderate hiatal hernia Liver: Normal. No mass. Gallbladder and bile ducts: Normal. No calcified stones. No ductal dilation. Pancreas: Normal. No ductal dilation. Spleen: Normal. No splenomegaly. Adrenal glands: Normal. No mass. Kidneys and ureters: Normal. No hydronephrosis. Stomach and bowel: Colonic diverticulosis is present without evidence for inflammation. Appendix: No evidence of appendicitis. Intraperitoneal space: Unremarkable. No free air. No significant fluid collection. Vasculature: Unremarkable. No abdominal aortic aneurysm. Lymph nodes: Unremarkable. No enlarged lymph nodes. Urinary bladder: Unremarkable as visualized. Reproductive: Unremarkable as visualized. Bones/joints: Unremarkable. No acute fracture. Soft tissues: Unremarkable. IMPRESSION: No acute findings. No evidence for bowel obstruction or for ascites Dictated and Authenticated by: Vincent Osorio MD. Ordering:VICTOR M Cano MD
[2020-10-18 01:40] LABS: ETHANOL BLOOD < 3.0 mg/dL (<3); Troponin I < 0.05 ng/mL (<0.06)
[2020-10-18 01:49] VITALS: BP 144/97; PULSE 99; RESP 18; O2SAT 94
--- NOTE | 2020-10-18 01:50 | NUR.NOTE ---
Nursing Note: REFERAL SENT TO PRIMARY 10/17/20
[2020-10-18 02:06] LABS: Bilirubin Negative (Negative); Blood Negative (Negative); Clarity Clear (Clear); Glucose Negative (Negative); Ketones Negative (Negative); Leukocyte Esterase Negative (Negative); Nitrite Negative (Negative); Urobilinogen 0.2 EU/dL (Up TO 0.2); pH 6.5 (5-8)
== END 2020-10-18 02:00 | disposition home or self-care (01) ==
PROVIDERS: Emergency Provider Emergency Medicine; PCP Nurse Practitioner Family
DX: R14.0 Abdominal distension (gaseous) (principal); F41.9 Anxiety disorder, unspecified
CPT/HCPCS: 36415; 80053; 83690; 93005; 96374; 99285; 74176; 80320; 81003; 82248; 83735; 84484; 85025; 93010; 99284; J2060

== ENCOUNTER → 2020-12-08 13:16 | Outpatient (BNVA) | payer MEDICARE, SELFPAY | PROVIDERS: PCP Nurse Practitioner Family; Referring Provider Nurse Practitioner Family; Visit Provider Student in an Organized Health Care Education/Training Program | DX: R69 Illness, unspecified (principal) ==

== ENCOUNTER → 2021-02-04 10:20 | Outpatient (BNVA) | payer MEDICARE, SELFPAY | PROVIDERS: PCP Nurse Practitioner Family; Referring Provider Nurse Practitioner Family; Visit Provider Physical Therapy Assistant | DX: Z12.11 Encounter for screening for malignant neoplasm of colon (principal); Z86.010 Personal history of colon polyps ==

== ENCOUNTER 2021-02-09 14:40 | Outpatient (REF) | payer OTHER, SELFPAY ==
[2021-02-09 16:00] LABS: HGB 16.1 g/dL (13.5-17.5); MCHC 33.5 % (32.0-36.0); MCV 92.3 fL (80-95); MPV 10.3 fL (8.0-11.0); Platelet Count 258 10^3/uL (130-400); RDW 12.2 % (11.8-14.1); RDW-SD 41.7 fL; WBC 7.16 10^3/uL (4.4-10.8)
[2021-02-09 16:08] LABS: ALT 51 U/L (16-63); AST 42 U/L (15-37); Albumin 4.3 g/dL (3.4-5.0); Alkaline Phosphatase 86 U/L (46-116); Anion Gap 10.5 mmol/L (3-11); BUN 6 mg/dL (7-18); Bilirubin, Direct 0.2 mg/dL (0.0-0.2); Bilirubin, Total 0.7 mg/dL (0.2-1.0); CO2 29.5 mmol/L (21.0-32.0); CREATININE 0.8 mg/dL (0.70-1.30); Calcium 9.8 mg/dL (8.5-10.1); Chloride 101 mmol/L (98-107); Glucose 106 mg/dL (74-106); Potassium 4.4 mmol/L (3.5-5.1); Sodium 141 mmol/L (136-145); TSH 1.72 uIU/mL (0.36-3.74); Total Protein 7.8 g/dL (6.4-8.2)
[2021-02-09 16:15] LABS: GGT 225 U/L (15-85)
== END 2021-02-09 14:41 | disposition home or self-care (01) ==
LOC: NCHCN 14:40
PROVIDERS: PCP Nurse Practitioner Family; Visit Provider Nurse Practitioner Family
DX: D64.9 Anemia, unspecified (principal); R73.03 Prediabetes; R74.8 Abnormal levels of other serum enzymes; G89.29 Other chronic pain; Z79.891 Long term (current) use of opiate analgesic; Z87.828 Personal history of other (healed) physical injury and trauma; Z77.011 Contact with and (suspected) exposure to lead
CPT/HCPCS: 80048; 80076; 85027; 82977; 83655; 84443

== ENCOUNTER 2021-04-07 11:37 | Outpatient (REF) | payer OTHER, SELFPAY ==
[2021-04-07 15:57] LABS: Vitamin B12 445 pg/mL (193-986)
== END 2021-04-07 11:38 | disposition home or self-care (01) ==
LOC: NCHCN 11:37
PROVIDERS: PCP Nurse Practitioner Family; Visit Provider Nurse Practitioner Family
DX: R20.2 Paresthesia of skin (principal)
CPT/HCPCS: 82607

== ENCOUNTER → 2021-04-27 12:30 | Outpatient (BNVA) | payer OTHER, SELFPAY | PROVIDERS: PCP Nurse Practitioner Family; Referring Provider Nurse Practitioner Family; Visit Provider Nurse Practitioner Adult Health | DX: R00.0 Tachycardia, unspecified (principal); I10 Essential (primary) hypertension; G25.0 Essential tremor; R73.03 Prediabetes ==

== ENCOUNTER 2021-04-27 13:13 | Emergency (ER) | payer OTHER, SELFPAY ==
[2021-04-27] VITALS (30 sets, daily range): BP systolic 138–188; BP diastolic 93–132; PULSE 71–156; RESP 12–22; TEMP 36.8; O2SAT 94–100
--- NOTE | 2021-04-27 13:15 | RT.EKG_ITS ---
APPROVED REPORT Exam: Resting ECG Reason for Exam: high heart rate Patient Location: E HR:119 bpm ECG Measurements Heart Rate 119 AXIS CO 159 P 44 QRSd 93 QRS 105 QT 313 T -5 QTc 441 Conclusion Sinus tachycardia...rate> 99 Probable left atrial enlargement...P >50mS, <-0.10mV V1 Probable lateral infarct, old...Q>35mS, abnormal ST-T, V5-6 I aVL sinus tachycardia at 126, normal axis, no STEMI, nondiagnostic EKG
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
--- NOTE | 2021-04-27 14:08 | DI.CT_ITS ---
Exam(s) CT HEAD CERVICAL SPINE WO EXAM: CT HEAD CERVICAL SPINE WO CLINICAL HISTORY: palpitaitons, hypertension,tingling in face, both arms, r/o cva. TECHNIQUE: Imaging Protocol: Axial computed tomography images with coronal and sagittal reformatted images were created and reviewed COMPARISON: CT CT HEAD WO from 02/11/2021 FINDINGS: CT Head: Ventricles and Extra axial spaces: Normal in size and morphology for the patient's age. Hemorrhage: None. Cerebral parenchyma: Normal. No acute territorial infarct. Midline shift: None. Brainstem/Cerebellum: Normal. Calvarium: Normal. Visualized Paranasal sinuses/Mastoids: Mucous retention cyst or polyp in the left maxillary sinus. M ild mucosal thickening in the ethmoid air cells and maxillary sinuses bilaterally. Remaining visuali zed paranasal sinuses and mastoid air cells are clear. Soft Tissues: Unremarkable. CT Cervical Spine: Bones: No acute fracture or subluxation. Mild degenerative changes are seen in the cervical spine. A t C5-6 there are hypertrophic changes of the uncovertebral joints causing [id number] bilateral neural foraminal stenosis. Soft Tissues: Unremarkable. Lung Apices: Mild centrilobular emphysematous changes are present. Thyroid gland: Unremarkable. IMPRESSION: 1. No acute intracranial process. 2. No acute fracture or subluxation in the cervical spine. 3. Results of this exam have been verbally communicated with provider. RADIATION DOSE DELIVERED: 1,367.57mGy.cm Total DLP DATA REPOSITORY: All CT scans at this facility are submitted to the National Radiology Data Registry (NRDR) Dose Index Registry (DIR) with the [employer] (ACR). RADIATION OPTIMIZATION: All CT scans at this facility use at least one of these dose optimization te chniques: automated exposure control; mA and/or kV adjustment per patient size (includes targeted exa ms where dose is matched to clinical indication); or iterative reconstruction.
--- NOTE | 2021-04-27 14:15 | DI.RAD_ITS ---
Exam(s) XR CHEST 2V PA LATERAL EXAM: XR CHEST 2V PA LATERAL CLINICAL HISTORY: tachycardia, palpitations, r/o acute disease TECHNIQUE: 2D digital imaging was performed. COMPARISON: CR XR shoulder RT complete 2+V from 07/26/2018 FINDINGS: MEDIASTINUM: Small hiatal hernia. HEART: Normal. PULMONARY VASCULATURE: Normal. LUNGS: Clear. PLEURAL SPACE: No pleural effusion or pneumothorax. BONE:Within normal limits for the patient's age. OTHER FINDINGS:Metallic foreign bodies are again seen in the soft tissues of the chest. IMPRESSION: No acute pulmonary findings. DATA REPOSITORY: RADIATION DOSE DELIVERED:
[2021-04-27 14:19] LABS: Abs Immature Grans 0.05 10^3/uL (0.0-0.06); Absolute Basophil Count 0.06 10^3/uL (0.0-0.2); Absolute Eosinophil Count 0.08 10^3/uL (0.0-0.7); Absolute Lymphocyte Count 1.29 10^3/uL (1.2-3.4); Basophils % 0.7; Eosinophils % 0.9; HCT 47.5 % (40.0-50.0); Immature Grans % 0.6; Lymphocytes % 14.5; MCH 31.7 pg (27.0-33.0); MCHC 33.7 % (32.0-36.0); MCV 94.1 fL (80-95); MPV 9.6 fL (8.0-11.0); Monocytes % 7.9; Neutrophils % 75.4; Nucleated RBC 0 %; Platelet Count 251 10^3/uL (130-400); RBC 5.05 10^6/uL (4.36-5.78); RDW 12.5 % (11.8-14.1); RDW-SD 43.4 fL; WBC 8.88 10^3/uL (4.4-10.8)
[2021-04-27] MEDS: MORPHine 4 MG/ML SYR IVP (14:23)
[2021-04-27] MEDS: Normal Saline 500 ML IV (14:23)
[2021-04-27 14:37] LABS: ALT 42 U/L (16-63); AST 50 U/L (15-37); Albumin 4.4 g/dL (3.4-5.0); Alkaline Phosphatase 93 U/L (46-116); BUN 10 mg/dL (7-18); Chloride 100 mmol/L (98-107); Glucose 111 mg/dL (74-106); Potassium 4.2 mmol/L (3.5-5.1); Sodium 140 mmol/L (136-145); Total Protein 8.5 g/dL (6.4-8.2)
[2021-04-27 14:44] LABS: Troponin I < 0.05 ng/mL (<0.06)
== END 2021-04-27 17:18 | disposition home or self-care (01) ==
PROVIDERS: Emergency Provider Physician Assistant; PCP Nurse Practitioner Family
DX: R00.0 Tachycardia, unspecified (principal); R20.2 Paresthesia of skin; I10 Essential (primary) hypertension
CPT/HCPCS: 36415; 80053; 93005; 96361; 96374; 99285; 70450; 71046; 72125; 83735; 84484; 85025; 93010; J2270

== ENCOUNTER 2021-05-11 13:45 | Outpatient (REF) | payer OTHER, SELFPAY ==
[2021-05-13 01:29] LABS: Vitamin D 25 Total 20.5 ng/mL (30-100)
== END 2021-05-11 13:46 | disposition home or self-care (01) ==
LOC: NCHCN 13:45
PROVIDERS: PCP Nurse Practitioner Family; Visit Provider Nurse Practitioner Family
DX: G89.29 Other chronic pain (principal); R20.9 Unspecified disturbances of skin sensation; F32.1 Major depressive disorder, single episode, moderate; Z79.891 Long term (current) use of opiate analgesic
CPT/HCPCS: 82306

== ENCOUNTER → 2021-05-25 13:21 | Outpatient (BNVA) | payer OTHER, SELFPAY | PROVIDERS: PCP Nurse Practitioner Family; Referring Provider Nurse Practitioner Family; Visit Provider Nurse Practitioner Adult Health | DX: G43.001 Migraine without aura, not intractable, with status migrainosus (principal); G43.901 Migraine, unspecified, not intractable, with status migrainosus; I10 Essential (primary) hypertension | CPT/HCPCS: 99215; G2212 ==

== ENCOUNTER → 2021-06-23 12:25 | Outpatient (BNVA) | payer MEDICARE, SELFPAY | PROVIDERS: PCP Nurse Practitioner Family; Referring Provider Nurse Practitioner Family; Visit Provider Nurse Practitioner Adult Health | DX: G43.001 Migraine without aura, not intractable, with status migrainosus (principal); F17.210 Nicotine dependence, cigarettes, uncomplicated; Z79.891 Long term (current) use of opiate analgesic; F39 Unspecified mood [affective] disorder | CPT/HCPCS: 99213; J1885; 96372 ==

== ENCOUNTER → 2021-07-09 12:29 | Outpatient (BNVA) | payer MEDICARE, SELFPAY | PROVIDERS: PCP Nurse Practitioner Family; Referring Provider Nurse Practitioner Family; Visit Provider Physical Therapy Assistant | DX: D17.9 Benign lipomatous neoplasm, unspecified (principal); L72.9 Follicular cyst of the skin and subcutaneous tissue, unspecified; I10 Essential (primary) hypertension | CPT/HCPCS: 99213 ==

== ENCOUNTER 2021-08-02 02:27 | Outpatient (CLI) | payer MEDICARE, SELFPAY ==
[2021-08-02 12:51] LABS: Source Nasal/Nares
[2021-08-02 20:34] LABS: COVID-19 PCR Negative (Negative)
== END 2021-08-02 02:28 | disposition home or self-care (01) ==
LOC: LBO 02:27
PROVIDERS: PCP Nurse Practitioner Family; Visit Provider Surgery
DX: Z20.822 Contact with and (suspected) exposure to COVID-19 (principal)
CPT/HCPCS: 87635

== ENCOUNTER 2021-08-04 13:18 | Day surgery (SDC) | payer MEDICARE, SELFPAY ==
--- NOTE | 2021-08-04 07:01 | W.PM.OP ---
Date of service: 08/04/21 Time of Service: 15:42 Operative Note Operative Note DATE OF PROCEDURE: 08/04/21 PRE-OP DIAGNOSIS: multiple lipomas on the Right and Left upper extremities Sebaceous cyst of the chest POST-OP DIAGNOSIS: same PROCEDURE: excision of lipomas and sebaceous cyst SURGEON: Martina Lopez ELECTRICAL APPLIANCE REPAIRER: Valerie Raymundo ANESTHESIA TYPE: Local By Surgeon Refer to Anesthesia Record ESTIMATED BLOOD LOSS: 25 PATHOLOGY: none sent COMPLICATIONS: None Patient was transported to: same day Patient's condition: stable Indications: Patient has numerous cysts located throughout hank. UE's which have the characteristics of lipoma's. The cyst located on his chest appears to be a sebaceous cyst. He would like to proceed with having these excised secondary to them frequently being painful. Discussed that these would need to be removed in the OR, due to the number of lesions. Discussed the potential risks of having these excised to include bleeding, infection, scar formation etc. Patient verbalized understanding and wishes to proceed. P// Numerous skin lesion excisions in the OR. Procedure Description: After informed consent was obtained the patient was placed in a supine position on the operating room table. The skin of both upper extremities and his chest were prepped and draped in a sterile surgical fashion. 1% Lidocaine mixed with 0.25% Bupivocaine with epi was injected over the palpable lipomas. The lipomas were marked in SDS. An incision was made over the palpable lesion with a 15 blade. Dissection was done around the lesion using both blunt dissection with a hemostat and sharp dissection with curved iris scissors. Once the lipoma was completely dissected it was removed. The wound was irrigated with some saline. Bleeding was stopped using cautery as well as suture ligation. Once the wound was clean and dry the dermis was closed with a running 4-0 Vicryl suture. Skin was cleaned and dried and skin affix was applied. The same procedure was done sequentianlly with 11 lipomas. On the RUE 7 lipomas were removed.#1- 5x5 cm, #2-3 x 1.8, #3-3.5 x2, #4- 3 x 2.2, #5- 2 x1 , #6- 2 x2 and #7- 2.5 x 2 cm. On the LUE 4 lipomas were removed. #1- 1.5 x 0.7, #2- 3.5 x 2, #3 2 x2 and #4- 3.5 x 2.5 cm. Next the local was injected into the dermis over the sebaceous cyst. An elliptical incision measuring 1.5 cm was done with a 15 blade. The cyst was dissected with scissors and hemostats. Once it was dissected out it was removed from the operating table. The dermis was closed with 4-0 vicryl. The skin was cleaned and dried and skin affix was applied. Both arms and chest were cleaned and dried. 4 x 4 were applied over the 11 incisions on his upper extremities and wrapped with shu bandage. No dressing was applied to chest incision. The patient tolerated the procedure well and there were no immediate complications. Needle counts were correct at the end of the case.
--- NOTE | 2021-08-04 07:02 | W.PM.DSUDISC ---
Discharge Plan Disposition Patient Disposition: HOME Condition: Good Discharge Details Reason For Visit: excision of multiple lipomas Attending Provider: Martina Lopez Primary Care Provider: Carrol Fournier Home Meds and New Rx's Prescriptions: Continued escitalopram oxalate [Lexapro] 20 mg tablet 20 mg PO DAILY RF: 0 hydrochlorothiazide 25 mg tablet 25 mg PO DAILY RF: 0 potassium chloride 10 mEq capsule, extended release 10 meq PO DAILY RF: 0 Digestive Advantage Advanced 10 billion cell capsule See Rx Instructions PO .COMPLEX RF: 0 morphine [MS Contin] 30 mg tablet extended release 30 mg PO BID RF: 0 oxycodone 10 mg tablet 10 mg PO BID PRNRF: 0 clonidine HCl 0.1 mg tablet 0.1 mg PO BID RF: 0 topiramate [Topamax] 50 mg tablet 50 mg PO QHS Qty: 30 RF: 5 hydroxyzine HCl 25 mg tablet See Rx Instructions PO QID PRN (Reason: headache) Qty: 30 RF: 2 nitroglycerin 0.4 MG tablet, sublingual 0.4 mg Sublingual PRN RF: 0 rosuvastatin 20 mg tablet 20 mg PO DAILY RF: 0 meloxicam [Mobic] 15 mg tablet 15 mg PO DAILY RF: 0 Narcan 4 mg/actuation spray,non-aerosol 4 mg intranasal Q2M PRNRF: 0 magnesium chloride 64 mg magnesium tablet 64 mg PO DAILY RF: 0 Discharge Instructions Additional Instructions: Activity at Home after surgery: 1. As tolerated Diet, Nutrition, & wound healin. Avoid alcohol until after you are recovered from your surgery 2. Make sure to eat plenty of lean protein (meat, fish, eggs, cottage cheese, beans) 3. Eat a variety of fruits and vegetables. Eat plenty of high fiber foods to avoid constipation. 4. Drink plenty of liquids to stay hydrated and avoid constipation Pain Medications: 1. Tylenol 650mg every 6 hours as needed 2. Continue with your chronic pain medication For Constipation: 1. Take Milk of Magnesia or MiraLax as needed for constipation Other: 1. You may shower daily. Do not scrub the incisions 2. Do not soak the incisions for 1 week 3. You may alternate ice and heat as needed for pain and swelling Wound Care: 1. Keep the incisions clean and dry Please call our office if you develop: 1. Fevers >101.5 2. Nausea or Vomiting 3. Worsening pain 4. Redness and thick discharge from the wounds If after hours please call the Hospital at and ask to speak to the on-call surgeon Referrals: Valerie Raymundo PA [[facility]] - 08/19/21 10:30 am Activity:: Activity as Tolerated Diet:: As Tolerated Discharge Orders Discharge Orders: Discharge Order (Routine); Ordered 08/04/21 Ordered By: Martina Lopez
[2021-08-04 13:50] VITALS: BP 148/98; PULSE 99; RESP 18; TEMP 36.8; O2SAT 96
[2021-08-04] MEDS: Bupivacaine 0.25% Pres-Free 30 ML VIAL (14:29)
[2021-08-04] MEDS: Lidocaine 1% Multi-Dose 50 ML VIAL (14:29)
[2021-08-04 15:37] VITALS: BP 171/118; PULSE 64; RESP 16; TEMP 36.3; O2SAT 97
[2021-08-04] MEDS: oxyCODONE 5 MG TAB 10 MG PO (16:05)
[2021-08-04 16:17] VITALS: BP 184/134; PULSE 94; RESP 16; TEMP 36.6; O2SAT 98
== END 2021-08-04 16:26 | disposition home or self-care (01) ==
LOC: SUR 13:20
PROVIDERS: PCP Nurse Practitioner Family; Visit Provider Surgery
PROC: (CPT 11406; principal; 2021-08-04 13:15)
DX: D17.22 Benign lipomatous neoplasm of skin and subcutaneous tissue of left arm (principal); D17.21 Benign lipomatous neoplasm of skin and subcutaneous tissue of right arm; L72.0 Epidermal cyst
CPT/HCPCS: 11406; 11404 ×3; 11402 ×5; 11403 ×3

== ENCOUNTER → 2021-08-19 10:30 | Outpatient (BNVA) | payer MEDICARE, SELFPAY | PROVIDERS: PCP Nurse Practitioner Family; Referring Provider Nurse Practitioner Family; Visit Provider Physical Therapy Assistant | DX: Z48.817 Encounter for surgical aftercare following surgery on the skin and subcutaneous tissue (principal); D17.21 Benign lipomatous neoplasm of skin and subcutaneous tissue of right arm | CPT/HCPCS: 99213 ==

== ENCOUNTER → 2021-09-02 13:58 | Outpatient (BNVA) | payer MEDICARE, SELFPAY | PROVIDERS: PCP Nurse Practitioner Family; Referring Provider Nurse Practitioner Family; Visit Provider Physical Therapy Assistant | DX: R69 Illness, unspecified (principal) ==

== ENCOUNTER 2021-10-10 04:49 | Emergency (ER) | payer MEDICARE, SELFPAY ==
[2021-10-10 05:19] VITALS: BP 163/106; PULSE 112; RESP 19; TEMP 36.3; O2SAT 94
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
[2021-10-10 05:46] LABS: Abs Immature Grans 0.02 10^3/uL (0.0-0.06); Absolute Basophil Count 0.05 10^3/uL (0.0-0.2); Absolute Eosinophil Count 0.09 10^3/uL (0.0-0.7); Absolute Lymphocyte Count 2.13 10^3/uL (1.2-3.4); Absolute Monocyte Count 0.54 10^3/uL (0.1-0.8); Absolute Neutrophil Count 3.22 10^3/uL (1.2-6.7); Basophils % 0.8; Eosinophils % 1.5; HCT 45.2 % (40.0-50.0); HGB 14.6 g/dL (13.5-17.5); Immature Grans % 0.3; Lymphocytes % 35.2; MCH 30.2 pg (27.0-33.0); MCHC 32.3 % (32.0-36.0); MCV 93.4 fL (80-95); MPV 9.2 fL (8.0-11.0); Monocytes % 8.9; Neutrophils % 53.3; Nucleated RBC 0 %; Platelet Count 261 10^3/uL (130-400); RBC 4.84 10^6/uL (4.36-5.78); RDW 13.2 % (11.8-14.1); RDW-SD 45.2 fL; WBC 6.05 10^3/uL (4.4-10.8)
[2021-10-10 06:08] LABS: ALT 60 U/L (16-63); AST 83 U/L (15-37); Albumin 3.8 g/dL (3.4-5.0); Alkaline Phosphatase 95 U/L (46-116); Anion Gap 11.7 mmol/L (3-11); BUN 8 mg/dL (7-18); Bilirubin, Direct 0.1 mg/dL (0.0-0.2); Bilirubin, Total 0.2 mg/dL (0.2-1.0); CO2 28.3 mmol/L (21.0-32.0); CREATININE 0.8 mg/dL (0.70-1.30); Calcium 9.1 mg/dL (8.5-10.1); Chloride 103 mmol/L (98-107); Glucose 103 mg/dL (74-106); Lipase 233 U/L (73-393); Magnesium 1.9 mg/dL (1.8-2.4); Potassium 3.8 mmol/L (3.5-5.1); Sodium 143 mmol/L (136-145); Total Protein 7.9 g/dL (6.4-8.2)
== END 2021-10-10 05:42 | disposition left against medical advice (07) ==
LOC: ER 05:52
PROVIDERS: Emergency Provider Emergency Medicine; PCP Nurse Practitioner Family
DX: R10.9 Unspecified abdominal pain (principal); M54.9 Dorsalgia, unspecified; M54.2 Cervicalgia; G89.29 Other chronic pain; Z53.29 Procedure and treatment not carried out because of patient's decision for other reasons
CPT/HCPCS: 36415; 80053; 83690; 99283; 81003; 82248; 83735; 85025; 99282

== ENCOUNTER → 2021-10-21 14:58 | Outpatient (BNVA) | payer MEDICARE, SELFPAY | PROVIDERS: PCP Nurse Practitioner Family; Visit Provider Nurse Practitioner Adult Health | DX: R51.9 Headache, unspecified (principal); F17.210 Nicotine dependence, cigarettes, uncomplicated; Z79.891 Long term (current) use of opiate analgesic; F39 Unspecified mood [affective] disorder | CPT/HCPCS: 64405; 99213 ==

== ENCOUNTER → 2021-11-08 09:19 | Outpatient (BNVA) | payer MEDICARE, SELFPAY | PROVIDERS: PCP Nurse Practitioner Family; Referring Provider Nurse Practitioner Family; Visit Provider Nurse Practitioner Adult Health | DX: R51.9 Headache, unspecified (principal) | CPT/HCPCS: 64405; 99213 ==

== ENCOUNTER → 2021-11-18 12:56 | Outpatient (BNVA) | payer MEDICARE, SELFPAY | PROVIDERS: PCP Nurse Practitioner Family; Referring Provider Nurse Practitioner Family; Visit Provider Physical Therapy Assistant | DX: Z12.11 Encounter for screening for malignant neoplasm of colon (principal); Z86.010 Personal history of colon polyps ==

== ENCOUNTER 2021-11-22 02:25 | Outpatient (CLI) | payer MEDICARE, SELFPAY ==
[2021-11-22 10:58] LABS: Source Nasal/Nares
[2021-11-22 15:09] LABS: COVID-19 PCR Negative (Negative)
== END 2021-11-22 02:26 | disposition home or self-care (01) ==
PROVIDERS: PCP Nurse Practitioner Family; Visit Provider Surgery
DX: Z20.822 Contact with and (suspected) exposure to COVID-19 (principal); Z01.818 Encounter for other preprocedural examination
CPT/HCPCS: 87635; U0005

== ENCOUNTER 2021-11-24 10:20 | Day surgery (SDC) | payer MEDICARE, SELFPAY ==
--- NOTE | 2021-11-24 06:50 | W.COLOREPORT ---
Colonoscopy Report Date of procedure: 11/24/21 Pre-op diagnosis general: Colon cancer screening and Hx of colon polyps Post-op diagnosis procedure note: other (polyps and mild modi-diverticulosis) Procedure: Colonoscopy with polypectomy Surgeon: Martina Lopez Anesthesia Type: General:No Airway Estimated blood loss (mL): 5 Pathology: other (descending polyps x3, sigmoid polyp x1, and rectal polyp) Complications: None Disposition: same day Indications: The patient is here for Colonoscopy pre-op. His last screening was in 2019 and was remarkable for tubulovillious adenoma. He has no family history of colon cancer. Patient describes years of constipation, abdominal bloating and pain. -Discussed colonoscopy bowel prep as well as the procedure. Discussed possible complications of the procedure to include bleeding, pain, perforation, missed small lesion/polyp, sore throat, aspiration and adverse reaction to the medications. Questions were answered to patient?s satisfaction. No guarantees were implied or given.? Prep: Miralax/Dulcolax Procedure Start Time: 11:58 Procedure End Time: 12:42 Retraction Time: 31 minutes Findings: Multiple adenomatous polyps Rectal adenomatous polyp >1 cm in size Procedure Description: After informed consent was obtained the patient was taken to the procedure room and placed in a left decubitous position. Monitors were applied and a time out was done. The patients name, date of , procedure, allergies to medications and metal in their body was reviewed. The patient was then sedated. Once sedated and comfortable a rectal exam was done. External exam was normal. Internal exam revealed a slightly decreased sphincter tone and no palpable masses. The prostate felt smooth. The scope was then introduced and retro-flexed. No internal hemorrhoids, polyps or masses were identified on retro-flexion. The scope was then advanced to the cecum with some difficulty trying to get around the splenic flexure. The ileocecal vlave and appendiceal orifice were identified. The prep was adequate. The scope was then slowly retracted over 31 minutes back into the rectum. Polyps were removed with cold forceps in the descending colon and sigmoid colon and with a hot snare in the descending colon x2 and rectum. The rectal polyps was >1 cm in size. It was removed and a clip was placed for bleeding. Once the polyp was removed the area was marked with 2 cc of blue dye. There was mild modi- diverticulosis noted. The scope was removed and the patient was woken up and taken back to Same day surgery in stable condition. The patient tolerated the procedure well and there were no immediate complications. Follow up: will depend on final pathology
--- NOTE | 2021-11-24 06:52 | W.PM.DSUDISC ---
Discharge Plan Disposition Patient Disposition: HOME Condition: Good Discharge Details Reason For Visit: Colonoscopy Attending Provider: Martina Lopez Primary Care Provider: Carrol Fournier Home Meds and New Rx's Prescriptions: New polyethylene glycol 3350 [Miralax] 17 gram powder in packet 17 g PO DAILY Qty: 30 0RF Rx Instructions: Take daily for constipation Continued Digestive Advantage Advanced 10 billion cell capsule See Rx Instructions PO .COMPLEX 0RF Rx Instructions: 1 tab once a day PO; oxycodone 10 mg tablet 10 mg PO BID PRN0RF Label Comments: Do not exceed more than 2 tablets a day. morphine [MS Contin] 30 mg tablet extended release 30 mg PO DAILY 0RF Rx Instructions: One tab in morning and one at noon. Do not exceed more than 2 tablets a day. nitroglycerin 0.4 MG tablet, sublingual 0.4 mg Sublingual PRN 0RF naloxone [Narcan] 4 mg/actuation spray,non-aerosol 4 mg intranasal Q2M PRN0RF Rx Instructions: spray 1 dose into ONE nostril; alternate nostrils w each dose until help arrives amlodipine 5 mg tablet 5 mg PO BID 0RF Discontinued bisacodyl [Dulcolax (bisacodyl)] 5 mg tablet,delayed release (DR/EC) 5 mg PO ONCE Qty: 4 0RF Rx Instructions: Take according to provider's instructions for colonoscopy prep. polyethylene glycol 3350 17 gram/dose powder 17 g PO ONCE Qty: 238 0RF Rx Instructions: To be taken as directed by prescriber's office for colonoscopy prep. Discharge Instructions Instructions: Colorectal Polyps (DC) Additional Instructions: Findings: 5 polyps mild diverticulosis Follow up: will depend on final pathology Please call if you develop: fevers >101.5 Nausea or Vomiting Abdominal pain that is not transient Rectal bleeding that is more then a tbsp A hard abdomen and inability to pass gas DAY SURGERY UNIT POST ENDOSCOPY INSTRUCTIONS Instructions for everyone who is given Anesthesia: For your safety, please do the following for the next 24 Hours: a. Do not drive or operate dangerous equipment b. Do not drink alcohol beverages or use any recreational drugs for the first 24 hours or while taking pain medications. The medications in your body may have a reaction that can be dangerous. c. Do not make any important decisions or sign any important papers 1. Generally there are no restrictions on your activity after a day or so has gone by, but you may feel a bit fatigued for a few days. 2. After you arrive home you may have a light meal and return to a normal diet as you can tolerate it without feeling sick to your stomach. 3. After surgery, you may feel pain or discomfort. This should be only transient, but if it persists please contact your doctor. 4. If there are any questions regarding the findings of your procedure, please feel free to contact your doctor. 6. If you are unable to contact your doctor with a problem, contact the hospital at [phone]. 7. Continue all your regular medications unless directed otherwise. I understand the above instructions and have no questions. Signature of Patient or Responsible Adult Escort Date/Time Name of Responsible Adult Escort Signature of Nurse Date/Time Activity:: Activity as Tolerated Diet:: As Tolerated Discharge Orders Discharge Orders: Discharge Order (Routine); Ordered 11/24/21 Ordered By: Martina Lopez
[2021-11-24 10:30] VITALS: BP 147/114; PULSE 129; RESP 18; TEMP 36.4; O2SAT 97
[2021-11-24] MEDS: Lactated Ringers 1,000 ML 80 ML IV (11:05)
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
[2021-11-24 11:39] VITALS: BMI 29.9
--- NOTE | 2021-11-24 12:16 | BOWEL_PTH ---
PATIENT: Ismael Morales LOC: [facility] U#:[id number] AGE/SX: 56/M ROOM: RE11/24/[address]: Martina Lopez MD : 1965 BED: DIS: 11/24/2021 SPEC #: [id number] RECD: 11/24/21 13:37 STATUS: BRANDY REQ #: [id number] JENSEN: 11/24/21 12:[address]: Martina Lopez DEPT: Surgical Specimen RECD BY: Breanne Harrell ENTERED: 11/24/21 13:39 SP TYPE: Bowel OTHR DR: Carrol Fournier Tissues: 1 - BIOPSY BOWEL 2 - BIOPSY BOWEL 3 - BIOPSY BOWEL Procedures: GROSS AND MICRO LEVEL 4 Comments: [id number]
[2021-11-24] MEDS: Endoscopic Tattoo 5 ML SYR IJ (12:40)
[2021-11-24 12:45] VITALS: BP 114/93; PULSE 78; RESP 16; TEMP 36.6; O2SAT 97
[2021-11-24 13:15] VITALS: BP 142/100; PULSE 72; RESP 16; TEMP 36.2; O2SAT 99
--- NOTE | 2021-11-24 13:37 | W.ANESPOSTOP ---
Postoperative Evaluation Date, Time and Location Date Performed: 11/24/21 Time Performed: 13:00 Patient Location: Day Surgery Unit Vital Signs Most Recent Imported Vital Signs: Most Recent Vital Signs Temp Pulse Resp BP Pulse Ox 36.6 C 78 16 114/93 H 97 11/24/21 12:45 11/24/21 12:45 11/24/21 12:45 11/24/21 12:45 11/24/21 12:45 Pain Score Most Recent Pain Score: Most Recent Pain Score Pain Level 0 11/24/21 12:45 Assessment Mental Status: Awake (Alert & Oriented to Patient Baseline) Airway and Respiratory Function: Patent airway with normal (patient baseline) respiratory exam Cardiovascular Function: Hemodynamically Stable Hydration Status: Adequately Hydrated Nausea & Vomiting: No Nausea or Vomiting Pain: Pt. Denies Any Pain Peripheral Nerve Block: Patient did not receive a nerve block
--- NOTE | 2021-11-24 15:30 | NUR.NOTE ---
Josein Patient had elevated HR and blood pressure anesthesia notified prior to IV insertion, Ancelmo VALLEJO said to proceed and no new orders given.g Note:
== END 2021-11-24 13:30 | disposition home or self-care (01) ==
LOC: SUR 10:21
PROVIDERS: PCP Nurse Practitioner Family; Visit Provider Surgery
PROC: 0DJD8ZZ Inspection of Lower Intestinal Tract, Via Natural or Artificial Opening Endoscopic (ICD-10-PCS; CPT 45378; principal; 2021-11-24 12:45)
DX: Z12.11 Encounter for screening for malignant neoplasm of colon (principal); D12.4 Benign neoplasm of descending colon; D12.8 Benign neoplasm of rectum; K57.30 Diverticulosis of large intestine without perforation or abscess without bleeding; Z86.010 Personal history of colon polyps; D64.0 Hereditary sideroblastic anemia; K21.9 Gastro-esophageal reflux disease without esophagitis; I10 Essential (primary) hypertension
CPT/HCPCS: 45380; 45381; 45385; 88305; J2704

== ENCOUNTER → 2022-02-07 12:19 | Outpatient (BNVA) | payer MEDICARE, SELFPAY | PROVIDERS: PCP Nurse Practitioner Family; Visit Provider Nurse Practitioner Adult Health | DX: G43.001 Migraine without aura, not intractable, with status migrainosus | CPT/HCPCS: 99213 ==

== ENCOUNTER 2022-09-21 09:28 | Emergency (ER) | payer MEDICARE, SELFPAY ==
[2022-09-21 09:29] VITALS: BP 162/92; PULSE 138; RESP 18; TEMP 36.9; O2SAT 96
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
[2022-09-21] MEDS: Normal Saline 1,000 ML 1000 ML IV (10:30)
[2022-09-21 10:41] LABS: Abs Immature Grans 0.01 10^3/uL (0.0-0.06); Absolute Basophil Count 0.04 10^3/uL (0.0-0.2); Absolute Monocyte Count 0.42 10^3/uL (0.1-0.8); Absolute Neutrophil Count 2.48 10^3/uL (1.2-6.7); Basophils % 0.9; Eosinophils % 2.2; HGB 14.3 g/dL (13.5-17.5); Immature Grans % 0.2; MCH 33.4 pg (27.0-33.0); MCV 98 fL (80-95); MPV 9.2 fL (8.0-11.0); Monocytes % 9.2; Neutrophils % 54.5; Platelet Count 195 10^3/uL (130-400); RBC 4.28 10^6/uL (4.36-5.78); RDW 13.1 % (11.8-14.1); RDW-SD 47.2 fL; WBC 4.55 10^3/uL (4.4-10.8)
[2022-09-21] MEDS: MORPHine 4 MG/ML SYR IVP ×2 (10:42→12:43)
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
[2022-09-21 10:53] LABS: INR 0.9 (0.9-1.1); Prothrombin Time 9.4 sec (9.3-11.0)
[2022-09-21 11:03] LABS: ALT 73 U/L (16-63); AST 139 U/L (15-37); Albumin 3.5 g/dL (3.4-5.0); Alkaline Phosphatase 75 U/L (46-116); Anion Gap 9.5 mmol/L (3-11); BUN 5 mg/dL (7-18); Bilirubin, Total 0.4 mg/dL (0.2-1.0); CO2 30.5 mmol/L (21.0-32.0); CREATININE 0.7 mg/dL (0.70-1.30); Calcium 8.8 mg/dL (8.5-10.1); Chloride 103 mmol/L (98-107); Glucose 93 mg/dL (74-106); Lipase 511 U/L (73-393); Potassium 3.4 mmol/L (3.5-5.1); Sodium 143 mmol/L (136-145); Total Protein 7.3 g/dL (6.4-8.2)
[2022-09-21 11:28] LABS: Bilirubin Negative (Negative); Blood Negative (Negative); Clarity Clear (Clear); Glucose Negative (Negative); Ketones Negative (Negative); Leukocyte Esterase Negative (Negative); Nitrite Negative (Negative); Specific Gravity 1.015 (1.005-1.025); Urobilinogen 0.2 EU/dL (Up TO 0.2)
[2022-09-21 12:39] VITALS: BP 136/95; PULSE 86; TEMP 36.9; O2SAT 96
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
== END 2022-09-21 14:08 | disposition home or self-care (01) ==
PROVIDERS: Emergency Provider Physician Assistant; PCP Nurse Practitioner Family
DX: S36.892A Contusion of other intra-abdominal organs, initial encounter (principal); R79.89 Other specified abnormal findings of blood chemistry; I10 Essential (primary) hypertension; W06.XXXA Fall from bed, initial encounter; Y93.89 Activity, other specified
CPT/HCPCS: 36415; 71250; 80053; 83690; 86850; 86900; 86901; 96361; 96374; 96376; 99284; 70450; 72125; 74176; 81003; 85025; 85610; J2270

== ENCOUNTER 2022-10-25 17:49 | Inpatient (IN) | payer MEDICARE, SELFPAY ==
[2022-10-25 18:32] VITALS: BP 141/107; PULSE 146; RESP 22; TEMP 36.9; O2SAT 95
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
[2022-10-25] MEDS: LORazepam 1 MG TAB 2 MG PO (18:44)
[2022-10-25] MEDS: Haloperidol 5 MG TAB 10 MG PO (18:44)
[2022-10-25 19:19] LABS: Abs Immature Grans 0.05 10^3/uL (0.0-0.06); Absolute Basophil Count 0.06 10^3/uL (0.0-0.2); Absolute Lymphocyte Count 1.94 10^3/uL (1.2-3.4); Absolute Monocyte Count 0.86 10^3/uL (0.1-0.8); Absolute Neutrophil Count 3.42 10^3/uL (1.2-6.7); Basophils % 0.9; Eosinophils % 1.6; HCT 39.9 % (40.0-50.0); HGB 13.2 g/dL (13.5-17.5); Immature Grans % 0.8; Lymphocytes % 30.2; MCH 33.1 pg (27.0-33.0); MCHC 33.1 % (32.0-36.0); MCV 100 fL (80-95); MPV 9.1 fL (8.0-11.0); Monocytes % 13.4; Neutrophils % 53.1; Platelet Count 268 10^3/uL (130-400); RBC 3.99 10^6/uL (4.36-5.78); RDW 12.1 % (11.8-14.1); RDW-SD 44.7 fL; WBC 6.43 10^3/uL (4.4-10.8)
[2022-10-25 19:41] LABS: Salicylate 3.4 mg/dL (<2.8)
[2022-10-25 19:44] LABS: Acetaminophen < 2 ug/mL (10-30)
[2022-10-25 19:47] LABS: ALT 163 U/L (16-63); AST 161 U/L (15-37); Albumin 3.1 g/dL (3.4-5.0); Alkaline Phosphatase 86 U/L (46-116); Anion Gap 8.9 mmol/L (3-11); BUN 10 mg/dL (7-18); Bilirubin, Total 0.3 mg/dL (0.2-1.0); CO2 30.1 mmol/L (21.0-32.0); CREATININE 0.6 mg/dL (0.70-1.30); Calcium 8.3 mg/dL (8.5-10.1); Chloride 108 mmol/L (98-107); Estimated GFR 111.89 (mL/min/1.73m2); Glucose 103 mg/dL (74-106); Potassium 3.7 mmol/L (3.5-5.1); Sodium 147 mmol/L (136-145); TSH (W/Ref FT4) 1.04 uIU/mL (0.36-3.74); Total Protein 6.7 g/dL (6.4-8.2)
[2022-10-25 19:48] LABS: ETHANOL BLOOD 379.8 mg/dL (<10)
[2022-10-25] MEDS: chlordiazePOXIDE 25 MG CAP 50 MG PO (23:29)
[2022-10-26] VITALS (112 sets, daily range): BP systolic 116–158; BP diastolic 88–107; PULSE 91–183; RESP 12–35; TEMP 36.7–37.5; O2SAT 88–100
[2022-10-26] MEDS: Lactated Ringers 1,000 ML 1000 ML IV (05:45)
[2022-10-26] MEDS: LORazepam 2 MG/ML VIAL 1 MG IVP (05:47)
[2022-10-26] MEDS: chlordiazePOXIDE 25 MG CAP PO (05:48)
--- NOTE | 2022-10-26 06:58 | NUR.NOTE ---
Nursing Note: Notified mental health about incident with pt and pt mom that occurred last night. Mental health said they would discuss at morning meeting and decide what needs to be done.
--- NOTE | 2022-10-26 07:42 | ED.PROG_ITS ---
Date of service: 10/26/22 Time of Service: 07:42 Medical Decision Making pt resting in bed, has received oral librium and iv ativan for alcohol withdrawal, given he is in withdrawal can't be medically cleared to see [facility], discussed with hospitalist who accepts for admisison Sign Out Sign Out Data: Sign Out Comment: Intoxicated, suicidal. Needs repeat eval. Last updated by Ken Roebrts MD at 10/25/22 19:56 Sign Out Comment: etoh, suicidal, evidence of etoh withdrawal overnight, improved with librium and ativan Last updated by Eliezer Beckett MD at 10/26/22 07:08 Discharge Plan Disposition Patient Disposition: Admit to [facility] Condition: Stable Discharge Details Chief Complaint: PsychEval Clinical Impression: Alcohol withdrawal Primary Care Provider: Carrol Fournier ED Provider: Jerome Mota Dunlow Meds and New Rx's Prescriptions: No Action metaxalone 800 mg tablet 800 mg PO TID Qty: 10 0RF
--- NOTE | 2022-10-26 07:45 | NUR.NOTE ---
Nursing Note: -Krissy [phone]/[phone]
[2022-10-26 09:23] LABS: Source Nasal/Nares
[2022-10-26 09:35] LABS: Bilirubin Negative (Negative); Blood Negative (Negative); Clarity Clear (Clear); Glucose Negative (Negative); Ketones Negative (Negative); Leukocyte Esterase Negative (Negative); Nitrite Negative (Negative); Urobilinogen 0.2 EU/dL (Up TO 0.2)
[2022-10-26 09:54] LABS: COVID-19 PCR POSITIVE (Negative)
[2022-10-26 10:00] LABS: *AMPHETAMINES SCREEN URINE Negative (Negative); *BARBITURATES SCREEN URINE Negative (Negative); *BENZODIAZEPINES SCREEN URINE Negative (Negative); Cannabinoids THC Negative (Negative); Cocaine Screen,Urine Negative (Negative); METHADONE URINE SCREEN Negative (Negative); OPIATES URINE SCREEN Negative (Negative); Tricyclic Antidepressants Negative (Negative)
--- OUTSIDE RECORDS SUMMARY | 2022-10-26 10:21 | XMS_ITS | Continuity of Care Document ---
:1965 Author Organization [facility] Address [address] [place] [address] Encounter [facility] Date(s): 10/08/22 - 10/08/22 [facility] [address] [place] [address] Encounter Diagnosis Eloped from emergency department (Discharge Diagnosis) - 10/08/22 Alcohol intoxication (Discharge Diagnosis) - 10/08/22 Discharge Disposition: Left Against Medical Advice Attending Physician: Elvin Encarnacion MD Admitting Physician: Elvin Encarnacion MD Allergies, Adverse Reactions, Alerts No Known Allergies Functional Status 10/08/22 Family Member Travel History No recent travel Recent Travel History No recent travel Other exposure to Infectious Disease None Vital Signs Most recent to oldest [Reference Range]: 1 Temperature Temporal Artery [36-38 Deg C] 36.0 Deg C (10/08/22 9:49 AM) Peripheral Pulse Rate [60-100 bpm] 120 bpm *HI* (10/08/22 9:49 AM) Respiratory Rate [12-24 br/min] 16 br/min (10/08/22 9:49 AM) Blood Pressure [90-140/60-90 mmHg] 146/102 mmHg *HI* (10/08/22 9:49 AM) Weight Dosing 75.00 kg (10/08/22 10:01 AM) Weight Estimated 75.00 kg (10/08/22 9:49 AM) Height/Length Dosing 168.000 cm (10/08/22 10:01 AM) Height/Length Estimated 168.000 cm (10/08/22 9:49 AM) Social History Social History Type Response Tobacco Current everyday tobacco use r Tobacco Use:. Sex Male Hospital Discharge Instructions Patient Sljubwkjt23/07/2023 09:52:06Alcohol Use DisorderAlcohol Use Disorder Alcohol use disorder is a condition in which drinking disrupts daily life. People with this condition drink too much alcohol and cannot control their drinking. Alcohol use disorder can cause serious problems with physical health. It can affect the brain, heart, and other internal organs. This disorder can raise the risk for certain cancers and cause problems with mental health, such as depression or anxiety. What are the causes? This condition is caused by drinking too much alcohol over time. Some people with this condition drink to cope with or escape from negative life events. Others drink to relieve pain or symptoms of mental illness. What increases the risk? You are more likely to develop this condition if: ??? You have a family history of alcohol use disorder. ??? Your culture encourages drinking to the point of becoming drunk (intoxication). ??? You had a mood or conduct disorder in childhood. ??? You have been abused. ??? You are an adolescent and you: ??? Have poor performance in school. ??? Have poor supervision or guidance. ??? Act on impulse and like taking risks. What are the signs or symptoms? Symptoms of this condition include: ??? Drinking more than you want to. ??? Trying several times without success to drink less. ??? Spending a lot of time thinking about alcohol, getting alcohol, drinking, or recovering from drinking. ??? Continuing to drink even when it is causing serious problems in your daily life. ??? Drinking when it is dangerous to drink, such as before driving a car. ??? Needing more and more alcohol to get the same effect you want (building up tolerance). ??? Having symptoms of withdrawal when you stop drinking. Withdrawal symptoms may include: ??? Trouble sleeping, leading to tiredness (fatigue). ??? Mood swings of depression and anxiety. ??? Physical symptoms, such as a fast heart rate, rapid breathing, high blood pressure (hypertension), fever, cold sweats, or nausea. ??? Seizures. ??? Severe confusion. ??? Feeling or seeing things that are not there (hallucinations). ??? Shaking movements that you cannot control (tremors). How is this diagnosed? This condition is diagnosed with an assessment. Your health care provider may start by asking three or four questions about your drinking, or he or she may give you a simple test to take. This helps toget clear information from you. You may also have a physical exam or lab tests. You may be referred to a substance abuse counselor. How is this treated? With education, some people with alcohol use disorder are able to reduce their drinking. Many with this disorder cannot change their drinking behavior on their own and need help from substance use specialists. These specialists are counselors who can help diagnose how severe your disorder is and what type of treatment you need. Treatments may include: ??? Detoxification. Detoxification involves quitting drinking with supervision and direction of health care providers. Your health care provider may prescribe prescription medicines within the first week to help lessen withdrawal symptoms. Alcohol withdrawal can be dangerous and life-threatening. Detoxification may be provided in a home, community, or primary care setting, or in a hospital or substance use treatment facility. ??? Counseling. This may involve motivational interviewing (VA), family therapy, or cognitive behavioral therapy (CBT). It is provided by substance use treatment counselors or professional therapists. A counselor can address the things you can do to change your drinking behavior and how to maintain the changes. Talk therapy aims to: ??? Identify your positive motivations to change. ??? Identify and avoid the things that trigger your drinking. ??? Help you learn how to plan your behavior change. ??? Develop support systems that can help you sustain the change. ??? Medicines. Medicines can help treat this disorder by: ??? Decreasing cravings. ??? Decreasing the positive feeling you have when you drink. ??? Causing an uncomfortable physical reaction when you drink (aversion therapy). ??? [place] help groups such as Alcoholics Anonymous (AA). These groups are led by people who have quit drinking. The groups provide emotional support, advice, and guidance. Some people with this condition benefit from a combination of treatments provided by specialized substance use treatment centers. Follow these instructions at home: Medicines ??? Take vxep-vtc-tpkavkj and prescription medicines only as told by your health care provider. ??? Ask before starting any new medicines, herbs, or supplements. General instructions ??? Ask friends and family members to support your choice to stay sober. ??? Avoid situations where alcohol is served. ??? Create a plan to deal with tempting situations. ??? Attend support groups regularly. ??? Practice hobbies or activities you enjoy. ??? Do not drink and drive. ??? Keep all follow-up visits as told by your health care provider. This is important. How is this prevented? If you drink alcohol: ??? Limit how much you use to: ??? 0???1 drink a day for non women. ??? 0???2 drinks a day for men. ??? Be aware of how much alcohol is in your drink. In the [place] one drink equals one 12 oz bottle ofbeer (355 mL), one 5 oz glass of wine (148 mL), or one 1?? oz glass of hard liquor (44 mL). ??? If you have a mental health condition, seek treatment. Develop a healthy lifestyle through: ??? Meditation or deep breathing. ??? Exercise. ??? Spending time in nature. ??? Listening to music. ??? Talking with a trusted friend or family member. ??? If you are an adolescent: ??? Do not drink alcohol. Avoid gatherings where you might be tempted. ??? Do not be afraid to say no if someone offers you alcohol. Speak up about why you do not want to drink. Set a positive example for others around you by not drinking. ??? Build relationships with friends who do not drink. Where to find more information ??? Substance Abuse and Mental Health Services Administration: samhsa.gov ??? Alcoholics Anonymous: aa.org Contact a health care provider if: ??? You cannot take your medicines as told. ??? Your symptoms get worse or you experience symptoms of withdrawal when you stop drinking. ??? You start drinking again (relapse) and your symptoms get worse. Get help right away if: ??? You have thoughts about hurting yourself or others. If you ever feel like you may hurt yourself or others, or have thoughts about taking your own life, get help right away. Go to your nearest emergency department or: ??? Call your local emergency services (911 in the [place] ??? Call a suicide crisis helpline, such as the National Suicide Prevention Lifeline at . This is open 24 hours a day in the [place] ??? Text the Crisis Text Line at 290062 (in the [place] Summary ??? Alcohol use disorder is a condition in which drinking disrupts daily life. People with this condition drink too much alcohol and cannot control their drinking. ??? Treatment may include detoxification, counseling, medicines, and support groups. ??? Ask friends and family members to support you. Avoid situations where alcohol is served. ??? Get help right away if you have thoughts about hurting yourself or others. This information is not intended to replace advice given to you by your health care provider. Make sure you discuss any questions you have with your health care provider. Document Revised: 08/06/2020 Document Reviewed: 08/06/2020 [employer] Patient Education ?? 2021 [employer]. Follow Up Care10/08/2022 09:49:40With:Follow up with primary care provider [facility]Unknown [facility] Evens Cow[facility] MD: PERFORM Event Display: ED Note Physician Authored Date: [id number] JILL ECHOLS :1965 Age:57 years Sex:Male Visit Date:10/08/2022 Basic Information Time Seen: Evens Cowan MD / 10/08/2022 10:17 Chief Complaint body pain all over, its been for 30 years states I was taken off all my narcotics 3-4 years ago (morphine 300 mg per day). ??Drink lots of vodka per patient History Of Present Illness: 57-year-old male??past medical history??alcohol use, depression, reflux, hyperlipidemia, hypertension, PTSD presents with??chronic pain. ??Patient states that for??15 years of his life he was on opiates and then he was weaned off of these as an outpatient, then the last 2 to 3 years he has not had any opiates, however started drinking heavily. ??He states that he drinks about a half a gallon of vodka every 2 days. ??He drank this morning. ??He comes in because he states he hurts all over. ??He wants some help and would like??to be on chronic pain medications.?? He does not endorse any specific area of pain or any other specific symptoms other than pain all over. Review of Systems: generalized body pain Physical Exam Vitals & Measurements T:??36.0?C ??(Temporal Artery)?? HR:??120??(Peripheral)?? RR:??16?? BP:??146/102?? SpO2:??100%?? HT:??168.000??cm?? WT:??75.00??kg??(Estimated)?? General: Alert and oriented, well nourished,?No??acute distress Eye: PERRL, EOMI,?Normal??conjunctiva HENT: Normocephalic Musculoskeletal:?Normal?? range of motion and strength,?No??tenderness,?No??swelling Skin: Skin is warm, dry and pink,?No??rashes,?No??lesions Neurologic: Awake, alert and oriented X4, CN II-XII intact Psychiatric: Cooperative, appropriate mood and affect Medical Decision Makin-year-old male presents with chronic pain. ??36, 146/102, 120, 16, 100%.?? Patient reports drinking about a half a gallon of vodka every 2 days. ??He states that he drank this morning.?? Patient??isclinically intoxicated but??he is having??inappropriate avvi-gtm-vedfd conversation and responding to questions appropriately and walking appropriately. ??He is here with his brother. ??Patient states that??he hurts all over and has been dealing with chronic pain for years and states that he was takenoff his narcotics 2 to 3 years ago??and would like to be put back on narcotics for his chronic pain.?? I discussed with him that given that he??is??intoxicated,??the first step for him??would be to stop??drinking. I offered??multiple options to try to stop drinking including??having [facility] to come to the ER, and I stated that??his heavy alcohol use??may be contributing to his chronic pain??and current situation because he states that he is becoming more angry around his family??at home.?? I discussed that rather than putting him on opiates??in addition to his current alcohol use, that the first step would be to stop drinking and then if he needs chronic pain medications after this he should visit with his??primary care provider or pain specialist which he has seen in the past.?? The patient in the middle of the conversation then got up and walked out of the emergency department??andstated that he??needed to leave and was going to go have a drink.?? Patient eloped from the emergency department in the middle of??our conversation. Procedure No Qualifying Data Assessment/Plan 1.??Eloped from emergency department??Z53.21 Ordered: Discharge Patient, 10/08/22 10:50:00 EST, Home Independently, Constant Indicator ?? 2.??Alcohol intoxication??F10.929 Ordered: Discharge Patient, 10/08/22 10:50:00 EST, Home Independently, Constant Indicator ?? Patient Education Alcohol Use Disorder Follow Up With When Contact Information Follow up with primary care provider Within 1 month Additional Instructions: Problem List/Past Medical History Ongoing No qualifying data Historical No qualifying data Allergies No Known Allergies Social History Alcohol Current, vodka-half gallon in 2--3 days, 2-3 budlights per day Electronic Cigarette/Vaping Electronic Cigarette Use: Never. Substance Use Never Tobacco Current everyday tobacco user Tobacco Use:. Electronically Signed on 10/08/22 10:52 AM Evens Cowan MD
[2022-10-26] MEDS: Folic Acid 1 MG TAB PO (10:24)
[2022-10-26] MEDS: Enoxaparin 40 MG/0.4 ML SYR SC (10:24)
[2022-10-26] MEDS: Multivitamin TAB 1 TAB PO (10:24)
[2022-10-26] MEDS: Thiamine 100 MG TAB PO (10:24)
[2022-10-26] MEDS: Normal Saline Flush 10 ML SYR ×3 (11:31→15:05)
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
[2022-10-26] MEDS: Celecoxib 100 MG CAP PO (15:21)
--- NOTE | 2022-10-26 16:00 | PHA.REVIEW2 ---
Pharmacy Admission Review - Admission Clinical Review (Last Reviewed 10/25/22 @ 18:39 by Ken Roberts MD) Suicide attempt (Acute) Alcoholic hepatitis (Acute) Alcohol withdrawal (Acute) lisinopril Allergy (Intermediate, Verified 09/21/22 09:35) unknown niacin Allergy (Mild, Verified 09/21/22 09:35) rash Iodinated Contrast Media [Iodinated Contrast- Oral and IV Dye] Allergy (Unknown, Verified 09/21/22 09:35) per pt swelling tongue, emesis, skin flaking off Resuscitation Status Full Code Height 5 ft 7 in Weight 67.2 kg - Renal Dosing Renal Dosing: BUN 10 mg/dL (7-18) 10/25/22 19:05 Creatinine 0.6 mg/dL (0.70-1.30) L 10/25/22 19:05 Medications needing adjustments: Reviewed (Crcl ~ 127 mL/min current meds okay) - Anticoagulation Anticoagulation: Hgb 13.2 g/dL (13.5-17.5) L 10/25/22 19:05 Hct 39.9 % (40.0-50.0) L 10/25/22 19:05 Plt Count 268 10^3/uL (130-400) 10/25/22 19:05 Creatinine 0.6 mg/dL (0.70-1.30) L 10/25/22 19:05 DVT Prophylaxis: Reviewed Medications: Enoxaparin Therapeutic Anticoagulation: N/A - Opiate Usage Evaluate Pain Scale/Pains Meds: N/A - Relevant Labs Sodium 147 mmol/L (136-145) H 10/25/22 19:05 Potassium 3.7 mmol/L (3.5-5.1) 10/25/22 19:05 Chloride 108 mmol/L (98-107) H 10/25/22 19:05 Electrolytes, C-Reactive P, ESR: Reviewed - DM Control DM Control: Glucose 103 mg/dL (74-106) 10/25/22 19:05 DM Control: N/A - Cardiac Review BP, HR, EF%: Reviewed (BP-145/100 HR-106 both HR and BP have been elevated most of admission so far) - Qtc Review QTc: N/A - IV to PO Switch IV Medications: Reviewed - Home Meds Home Med List reviewed: Reviewed (no known home meds) - Current meds Current Medication Order Review: Reviewed - Comments Comments/Follow Ups: Watch BP, HR, labs, for cumulative phenobarbital dosage given and for med changes.
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
--- NOTE | 2022-10-26 17:32 | CMSP_ITS ---
- If Service Date Differs Date of service: 10/26/22 Time of Service: 17:32 Care Management Safety Plan Status: Interim - Reason for Wait Reason for Wait: Assessment/Screening, Medical Clearance Ismael will be assessed by [facility] emergency clinician once he becomes medically cleared. If screener deems patient meets criteria for psychiatric stabilization CM will facilitate interdepartmental huddle with [facility] screener for safety planni ng considerations and meet with patient to review [facility] policy and safety plan, establish individual wishes for treatment and maintain patient rights. In the interim; please note safety plan below to guide patient care while awaiting further assessment in the ED. SAFETY PLAN: 1. Will remain on suicide precautions and in paper clothes. 2. Will remain in room under direct supervision of one-on-one staff at all times provided by SARABJIT, [employer] practice coordinator. 3. May have paper cups, plates, finger foods as well as a cardboard spoon with which to eat meals. 4. Follow [facility] Management of the Admitted Behavioral Health Patient policy. 5. Comfort bath system, shower with supervision at RN discretion. 6. No personal belongings 7. No visitors. (Covid positive) 8. Phone contact limited to family at RN discretion. 9. Due to VOLUNTARY status, if patient wishes to leave [facility], staff will contact [facility] Crisis Screener ([phone]) and On-Call Is Architect ([phone]) as soon as possible. In the event of elopement, notify [facility] Police ([phone]). If deemed appropriate for inpatient psychiatric care, safety plan will be established with patient, and care team, to adhere to patient goals, identify restrictions based on behavioral status, address nutrition, and determine allowed personal belongings, tools for hygiene and personal care. As well plan will determine level of activity including ambulation, level of supervision, visitors, and determine privileges based on level of acuity, behaviors and level of engagement by patient.
[2022-10-26] MEDS: Acetaminophen 325 MG TAB PO (22:10)
[2022-10-26] MEDS: Normal Saline Flush 10 ML SYR IVP (23:00)
[2022-10-27] VITALS (76 sets, daily range): BP systolic 93–144; BP diastolic 64–109; PULSE 83–191; RESP 12–32; TEMP 35.9–37; O2SAT 94–100
--- NOTE | 2022-10-27 | DI.US_ITS ---
Exam(s) US ABDOMEN LIMITED EXAM: US ABDOMEN LIMITED CLINICAL HISTORY: US RUQ: transaminitis; h/o EtOH abuse TECHNIQUE: Ultrasound abdomen performed using standard protocol. COMPARISON: CT CT CHEST/ABD/PEL WO from 09/21/2022 FINDINGS: There is no ascites evident. LIVER: Liver is hyperechoic indicating steatosis. There are no discrete focal hepatic lesions. GALLBLADDER/BILIARY: There are no gallstones. No gallbladder wall edema nor pericholecystic fluid. The common hepatic duct isnot dilated, measuring 3-4mm at the level of sera hepatis. PANCREAS: There is no evidence of pancreatic mass nor dilatation of the pancreatic duct. RIGHT KIDNEY:No evidence of solid mass, calculus, nor hydronephrosis. No cortical cysts evident. IMPRESSION: 1. No evidence of cholelithiasis nor dilatation of the biliary tree. 2. Hepatic steatosis. Correlation appropriate hepatic blood work recommended. 3. There is no ascites. Please the note that the recent CT scan also revealed a prominent hiatal hernia. DATA REPOSITORY:
--- NOTE | 2022-10-27 | NUR.NOTE ---
Nursing Note:Left Upper Forearm 20G saline lock discontinued secondary to patient complaint of tenderness with palpation and pain when flushed. Catheter discontinued fully intact, scant bleeding at site, pressure applied and bandaid over site.
[2022-10-27] MEDS: PHENobarbital 130 MG/ML VIAL IVP ×4 (04:15→17:12)
[2022-10-27] MEDS: Acetaminophen 325 MG TAB PO ×2 (05:00→20:31)
--- NOTE | 2022-10-27 06:15 | NUR.NOTE ---
Nursing Note: Patient states that he drinks a 1/2 gallon of Vodka every other day. Last drink was right before I got out of the truck. Severe hand tremors and leg tremors noted during physical assessments as documented. Pt does state that i have the shakes all the time. Slightly improved since sitting with patient in the ER the previous night. Tolerating Oral fluids without c/o nausea/vomiting. Per patient he lives off the [facility] with his and two granddaughters in [place], [place].
[2022-10-27 06:23] LABS: HCT 39.8 % (40.0-50.0); HGB 13.5 g/dL (13.5-17.5); MCH 32.6 pg (27.0-33.0); MCHC 33.9 % (32.0-36.0); MCV 96 fL (80-95); MPV 9.7 fL (8.0-11.0); Platelet Count 236 10^3/uL (130-400); RBC 4.14 10^6/uL (4.36-5.78); RDW 11.9 % (11.8-14.1); RDW-SD 41.9 fL; WBC 3.91 10^3/uL (4.4-10.8)
[2022-10-27 06:42] LABS: ALT 109 U/L (16-63); AST 91 U/L (15-37); Albumin 2.8 g/dL (3.4-5.0); Alkaline Phosphatase 95 U/L (46-116); Anion Gap 8.9 mmol/L (3-11); BUN 7 mg/dL (7-18); Bilirubin, Total 0.4 mg/dL (0.2-1.0); CO2 30.1 mmol/L (21.0-32.0); CREATININE 0.8 mg/dL (0.70-1.30); Calcium 9.1 mg/dL (8.5-10.1); Chloride 99 mmol/L (98-107); Estimated GFR 102.58 (mL/min/1.73m2); Glucose 119 mg/dL (74-106); Magnesium 1.2 mg/dL (1.8-2.4); Sodium 138 mmol/L (136-145); Total Protein 6.1 g/dL (6.4-8.2)
[2022-10-27 08:12] LABS: Creatine Kinase 47 U/L (39-308)
[2022-10-27 08:38] LABS: Ferritin 364 ng/mL (26-388)
--- NOTE | 2022-10-27 08:43 | CMPROGNOTE_ITS ---
- If Service Date Differs Date of service: 10/27/22 Time of Service: 08:43 Care Management Progress Note S/O: Ismael remains in isolation due to Covid. CM met with his RN, who stated that he was more alert today, and sleeping less. CM talked to his , Krissy, who stated that she is not feeling well, and is very frustrated about Ismael's circumstances. She reported that she feels that he is dying from gadolinium poisoning. CM discussed the parameters of Act 39, reporting that this would not be conducted while at the hospital, and he must have physicians involved in the process. CM also set expectations for Ismael's acute stay, explaining that he is not yet medically cleared. CM will continue to follow. A: Ismael is a 57 year old male admitted to [facility] on 10/26/22 for SI, alcohol withdrawal. P: Ismael is being closely monitored in the ICU for alcohol withdrawal. Once he becomes medically cleared, he will be assessed by [facility] for potential inpatient psychiatric treatment. He will transfer to a facility vs return home with a plan for safety in the community. He will meet with palliative care while inpatient, if available, to discuss his chronic pain. He will follow up with his PCP and discharge plan of care. CM will continue to follow.
[2022-10-27 08:48] LABS: Prothrombin Time 9.9 sec (9.3-11.0)
[2022-10-27] MEDS: Normal Saline Flush 10 ML SYR IVP ×2 (08:52→20:33)
[2022-10-27 08:53] LABS: Procalcitonin < 0.1 ng/mL
[2022-10-27] MEDS: Cholecalciferol (Vitamin D3) 1,000 UNIT TAB 2000 UNITS PO (08:53)
[2022-10-27] MEDS: Zinc Sulfate 220 MG TAB PO (08:53)
[2022-10-27] MEDS: Ascorbic Acid 500 MG TAB 1000 MG PO (08:53)
[2022-10-27] MEDS: Gabapentin 100 MG CAP PO ×2 (08:53→14:00)
[2022-10-27] MEDS: Thiamine 100 MG TAB PO (08:54)
[2022-10-27] MEDS: Folic Acid 1 MG TAB PO (08:54)
[2022-10-27] MEDS: Celecoxib 100 MG CAP PO ×2 (08:54→20:31)
[2022-10-27] MEDS: Potassium Chloride 20 MEQ TABCR 40 MEQ PO ×2 (08:54→20:32)
[2022-10-27] MEDS: REMDESIVIR 200 MG in Normal Saline 250 ML 250 MG IVPB (08:54)
[2022-10-27] MEDS: Multivitamin TAB 1 TAB PO (08:54)
[2022-10-27 09:14] LABS: D-Dimer 1052 ng/mlFEU (<500)
[2022-10-27 10:03] LABS: Lab Add On Test DONE
[2022-10-27] MEDS: MAGNESIUM SULFATE 4 GM/100 ML BAG IVPB (10:16)
[2022-10-27 10:18] LABS: PHENOBARBITAL 11.2 ug/mL (15.0-40.0)
[2022-10-27] MEDS: Enoxaparin 40 MG/0.4 ML SYR SC (10:18)
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
[2022-10-27] MEDS: Lidocaine 5% Patch 1 PATCH TP (18:42)
[2022-10-27] MEDS: Gabapentin 100 MG CAP 200 MG PO (20:31)
[2022-10-27] MEDS: guaiFENesin 600 MG TABCR PO (20:32)
[2022-10-27] MEDS: Melatonin 3 MG TAB PO (23:04)
[2022-10-28] VITALS (15 sets, daily range): BP systolic 88–120; BP diastolic 57–87; PULSE 78–100; RESP 18–23; TEMP 36.5–36.7; O2SAT 96–99
[2022-10-28] MEDS: Lidocaine Patch Removal 1 EACH TP (06:15)
[2022-10-28 06:22] LABS: Abs Immature Grans 0.03 10^3/uL (0.0-0.06); Absolute Basophil Count 0.04 10^3/uL (0.0-0.2); Absolute Lymphocyte Count 1.41 10^3/uL (1.2-3.4); Absolute Monocyte Count 0.52 10^3/uL (0.1-0.8); Eosinophils % 4.8; HCT 38.4 % (40.0-50.0); HGB 12.8 g/dL (13.5-17.5); Immature Grans % 0.7; Lymphocytes % 33.5; MCH 33.1 pg (27.0-33.0); MCHC 33.3 % (32.0-36.0); MCV 99 fL (80-95); Monocytes % 12.4; Neutrophils % 47.6; RBC 3.87 10^6/uL (4.36-5.78); RDW 11.9 % (11.8-14.1); RDW-SD 43.4 fL; WBC 4.21 10^3/uL (4.4-10.8)
[2022-10-28 06:51] LABS: ALT 82 U/L (16-63); AST 53 U/L (15-37); Albumin 2.5 g/dL (3.4-5.0); Alkaline Phosphatase 81 U/L (46-116); Anion Gap 10.2 mmol/L (3-11); BUN 11 mg/dL (7-18); Bilirubin, Direct 0.1 mg/dL (0.0-0.2); Bilirubin, Total 0.3 mg/dL (0.2-1.0); CO2 24.8 mmol/L (21.0-32.0); CREATININE 0.8 mg/dL (0.70-1.30); Calcium 8.1 mg/dL (8.5-10.1); Chloride 101 mmol/L (98-107); Creatine Kinase 36 U/L (39-308); Estimated GFR 102.58 (mL/min/1.73m2); Glucose 121 mg/dL (74-106); Magnesium 1.8 mg/dL (1.8-2.4); Potassium 3.5 mmol/L (3.5-5.1); Sodium 136 mmol/L (136-145)
[2022-10-28 06:57] LABS: Diff Comment PLT Morph Reviewed; RBC Morphology Normal
[2022-10-28 06:59] LABS: D-Dimer 775 ng/mlFEU (<500)
[2022-10-28 07:26] LABS: Iron 60 ug/dL (65-175); Total Iron Binding Capacity 260 ug/dL (250-450); Transferrin Sat 23 % (20-55)
[2022-10-28 07:50] LABS: Vitamin D 25 Total 19.3 ng/mL (30-100)
[2022-10-28 07:51] LABS: Calculated LDL 91 mg/dL (<100); Cholesterol 141 mg/dL (<200); Ferritin 301 ng/mL (26-388); Folate 10.9 ng/mL (8.6-20.0); HDL Cholesterol 42 mg/dL (40-60); Triglyceride 42 mg/dL (<150); Vitamin B12 530 pg/mL (193-986)
[2022-10-28] MEDS: REMDESIVIR 100 MG in Normal Saline 250 ML 250 MG IVPB (07:58)
[2022-10-28] MEDS: Folic Acid 1 MG TAB PO (07:58)
[2022-10-28] MEDS: Ascorbic Acid 500 MG TAB 1000 MG PO (07:59)
[2022-10-28] MEDS: Multivitamin TAB 1 TAB PO (07:59)
[2022-10-28] MEDS: Zinc Sulfate 220 MG TAB PO (07:59)
[2022-10-28] MEDS: Gabapentin 100 MG CAP 200 MG PO ×2 (07:59→14:00)
[2022-10-28] MEDS: Cholecalciferol (Vitamin D3) 1,000 UNIT TAB 2000 UNITS PO (07:59)
[2022-10-28] MEDS: Thiamine 100 MG TAB PO (07:59)
[2022-10-28] MEDS: Celecoxib 100 MG CAP PO ×2 (07:59→20:30)
[2022-10-28] MEDS: Potassium Chloride 20 MEQ TABCR 40 MEQ PO (08:00)
[2022-10-28] MEDS: guaiFENesin 600 MG TABCR PO ×2 (08:00→20:30)
--- NOTE | 2022-10-28 09:51 | PDOC.CMPRO ---
- If Service Date Differs Date of service: 10/28/22 Time of Service: 09:51 Care Management Progress Note S/O: Ismael remains on Covid precautions, therefore CM did not meet with him in person. CM discussed his care with his RN, who stated that he is doing well, and reported overnight that his pain was slightly less than normal. He is currently reporting 9/10 pain, and his CIWA scores have been up to 7 today so far. He has been started on gabapentin and celebrex for pain. CM met with his brother, Morro today, and provided an update. He is currently not medically cleared. Once he becomes medically cleared, [facility] will screen him. CM explained to Morro that the result in that screening may mean that he is held against his will for inpatient psychiatric treatment, but that he is currently voluntary, awaiting medical clearance. Morro offered to give Ismael his cell phone, and CM explained that while here on a safety plan awaiting mental health evaluation (and if being held here as a mental health patient), he will not be allowed his personal cell phone. He can use the hospital's phone for incoming/outgoing calls, at RN discretion. CM will continue to follow. A: Ismael is a 57 year old male admitted to [facility] on 10/26/22 for SI, alcohol withdrawal. P: Ismael is being closely monitored in the ICU for alcohol withdrawal. Once he becomes medically cleared, he will be assessed by [facility] for potential inpatient psychiatric treatment. He will transfer to a facility vs return home with a plan for safety in the community. He will meet with palliative care while inpatient, if available, to discuss his chronic pain. He will follow up with his PCP and discharge plan of care. CM will continue to follow. - Status Status: Interim - Reason for Wait Reason for Wait: Medical Clearance
[2022-10-28] MEDS: Enoxaparin 40 MG/0.4 ML SYR SC (10:48)
--- NOTE | 2022-10-28 16:14 | CMSP_ITS ---
- If Service Date Differs Date of service: 10/28/22 Time of Service: 16:14 Care Management Safety Plan Status: Interim - Reason for Wait Reason for Wait: Medical Clearance Ismael will be assessed by [facility] emergency clinician once he becomes medically cleared. If screener deems patient meets criteria for psychiatric stabilization CM will facilitate interdepartmental huddle with [facility] screener for safety planning considerations and meet with patient to review [facility] policy and safety plan, establish individual wishes for treatment and maintain patient rights. In the interim; please note safety plan below to guide patient care while awaiting further assessment in the ED. SAFETY PLAN: 1. Will remain on suicide precautions and in paper clothes. 2. Will remain in room under direct supervision of one-on-one staff at all times provided by SARABJIT, HEAVY DUTY PRESS OPERATOR certified credit counselor. 3. May have paper cups, plates, finger foods as well as a cardboard spoon with which to eat meals. 4. Follow [facility] Management of the Admitted Behavioral Health Patient policy. 5. Comfort bath system, shower with supervision at RN discretion. 6. No personal belongings 7. No visitors. (Covid positive) 8. Phone contact, incoming/outgoing calls, at RN discretion. 9. Due to VOLUNTARY status, if patient wishes to leave [facility], staff will contact [facility] Crisis Screener ([phone]) and On-Call Orthodontic Band Maker ([phone]) as soon as possible. In the event of elopement, notify [facility] Police ([phone]). If deemed appropriate for inpatient psychiatric care, safety plan will be established with patient, and care team, to adhere to patient goals, identify restrictions based on behavioral status, address nutrition, and determine allowed personal belongings, tools for hygiene and personal care. As well plan will determine level of activity including ambulation, level of supervision, visitors, and determine privileges based on level of acuity, behaviors and level of engagement by patient.
[2022-10-28] MEDS: Lidocaine 5% Patch 1 PATCH TP (17:20)
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
[2022-10-28] MEDS: Gabapentin 100 MG CAP 300 MG PO (20:29)
[2022-10-28] MEDS: Melatonin 3 MG TAB PO (20:30)
[2022-10-28] MEDS: Acetaminophen 325 MG TAB PO (21:32)
[2022-10-29] VITALS (7 sets, daily range): BP systolic 115–134; BP diastolic 69–90; PULSE 83–103; RESP 16–18; TEMP 36.2–36.7; O2SAT 95–99
--- NOTE | 2022-10-29 | DI.CT_ITS ---
Exam(s) CT HEAD WO EXAM: CT HEAD WO CLINICAL HISTORY: Suspected old CVA (unilateral paresthesias). TECHNIQUE: Imaging Protocol: Axial computed tomography images with coronal and sagittal reformatted images were created and reviewed COMPARISON: CT CT HEAD CERVICAL SPINE WO from 09/21/2022 FINDINGS: Ventricles and Extra axial spaces: Normal in size and morphology for the patient's age. Hemorrhage: None. Cerebral parenchyma: Mild atrophy. Midline shift: None. Brainstem/Cerebellum: Normal. Calvarium: Normal. Visualized Paranasal sinuses/Mastoids: Mucous retention greatest in the left maxillary sinus. Mastoi d air cells are clear. Soft Tissues: Unremarkable. IMPRESSION: Sinus disease. No acute intracranial process. RADIATION DOSE DELIVERED: 809.35mGy.cm Total DLP DATA REPOSITORY: All CT scans at this facility are submitted to the National Radiology Data Registry (NRDR) Dose Index Registry (DIR) with the [employer] (ACR). RADIATION OPTIMIZATION: All CT scans at this facility use at least one of these dose optimization te chniques: automated exposure control; mA and/or kV adjustment per patient size (includes targeted exa ms where dose is matched to clinical indication); or iterative reconstruction.
[2022-10-29] MEDS: Acetaminophen 325 MG TAB PO ×2 (03:35→12:19)
[2022-10-29] MEDS: Lidocaine Patch Removal 1 EACH TP (06:10)
[2022-10-29 06:59] LABS: Abs Immature Grans 0.06 10^3/uL (0.0-0.06); Absolute Basophil Count 0.03 10^3/uL (0.0-0.2); Absolute Eosinophil Count 0.17 10^3/uL (0.0-0.7); Absolute Lymphocyte Count 1.28 10^3/uL (1.2-3.4); Absolute Monocyte Count 0.47 10^3/uL (0.1-0.8); Absolute Neutrophil Count 2.56 10^3/uL (1.2-6.7); Basophils % 0.7; Eosinophils % 3.7; HCT 40.2 % (40.0-50.0); HGB 13.1 g/dL (13.5-17.5); Immature Grans % 1.3; MCH 32.8 pg (27.0-33.0); MCHC 32.6 % (32.0-36.0); MCV 101 fL (80-95); MPV 9.7 fL (8.0-11.0); Monocytes % 10.3; Platelet Count 220 10^3/uL (130-400); RBC 3.99 10^6/uL (4.36-5.78); RDW-SD 44.8 fL; WBC 4.57 10^3/uL (4.4-10.8)
[2022-10-29 07:10] LABS: ALT 78 U/L (16-63); AST 46 U/L (15-37); Albumin 2.9 g/dL (3.4-5.0); Alkaline Phosphatase 90 U/L (46-116); Anion Gap 6.2 mmol/L (3-11); BUN 10 mg/dL (7-18); Bilirubin, Direct 0.2 mg/dL (0.0-0.2); Bilirubin, Total 0.4 mg/dL (0.2-1.0); C-Reactive Protein 0.14 mg/dL (0.0-0.3); CO2 30.8 mmol/L (21.0-32.0); CREATININE 0.8 mg/dL (0.70-1.30); Calcium 8.7 mg/dL (8.5-10.1); Chloride 101 mmol/L (98-107); Estimated GFR 102.58 (mL/min/1.73m2); Glucose 123 mg/dL (74-106); Magnesium 1.7 mg/dL (1.8-2.4); Sodium 138 mmol/L (136-145); Total Protein 6.5 g/dL (6.4-8.2)
[2022-10-29 07:27] LABS: D-Dimer 711 ng/mlFEU (<500)
[2022-10-29] MEDS: Celecoxib 100 MG CAP PO ×2 (08:25→19:53)
[2022-10-29] MEDS: Cholecalciferol (Vitamin D3) 1,000 UNIT TAB 2000 UNITS PO (08:25)
[2022-10-29] MEDS: Zinc Sulfate 220 MG TAB PO (08:25)
[2022-10-29] MEDS: Multivitamin TAB 1 TAB PO (08:25)
[2022-10-29] MEDS: Gabapentin 100 MG CAP 300 MG PO ×2 (08:25→14:31)
[2022-10-29] MEDS: Thiamine 100 MG TAB PO (08:25)
[2022-10-29] MEDS: guaiFENesin 600 MG TABCR PO ×2 (08:26→19:53)
[2022-10-29] MEDS: Normal Saline Flush 10 ML SYR IVP ×3 (08:26→19:52)
[2022-10-29] MEDS: Folic Acid 1 MG TAB PO (08:26)
[2022-10-29] MEDS: Ascorbic Acid 500 MG TAB 1000 MG PO (08:26)
[2022-10-29] MEDS: REMDESIVIR 100 MG in Normal Saline 250 ML 250 MG IVPB (08:26)
[2022-10-29] MEDS: MAGNESIUM SULFATE 2 GM/50 ML BAG IVPB (10:06)
[2022-10-29] MEDS: Enoxaparin 40 MG/0.4 ML SYR SC (10:06)
--- NOTE | 2022-10-29 10:15 | CMSP_ITS ---
- If Service Date Differs Date of service: 10/29/22 Time of Service: 10:16 Care Management Safety Plan Status: Voluntary - Reason for Wait Reason for Wait: Inpatient Admission VOLUNTARY FOR INPATIENT PSYCHIATRIC STABILIZATION. Patient is appropriate in all interactions since arriving at [facility]; Pt has demonstrated appropriate coping and communication skills, has articulated his or her needs and concerns and is fully engaged during staff interactions. 10/29/22 Ismael is medically cleared per provider and [facility] screened pt today. His case is reviewed with Alejandra/CHECO, Dr. Spring/Hospitalist, Luisa primary RN and Eleanor/RNCM. The recommendation at this time is for Ismael to remain at [facility] voluntarily while awaiting inpatient psych treatment. Ismael is agreeable to plan. Per hospitalist and crisis screener there is a plan to EE patient if Ismael wants to leave. CM will continue to follow. Safety plan has been established with patient, and care team, to adhere to patient goals, identify restrictions based on behavioral status, address nutrition, and determine allowed personal belongings, tools for hygiene and personal care. Determine level of activity including ambulation, level of supervision, visitors, and determine privileges based on behaviors and level of engagement by pt. SAFETY PLAN: 1. Will remain on suicide precautions. In Paper Clothes 2. Will remain in room under direct supervision of one-on-one staff at all times provided by CPSO; SARABJIT, BENCH TECHNICIAN pile driving supervisor. 3. May have paper cups, plates, finger foods as well as a cardboard spoon with which to eat meals. 4. Follow [facility] Management of the Admitted Behavioral Health Patient policy. 5. Comfort bath system only, shower permitted with escort at RN discretion. 6. No personal belongings-soft items permitted at RN discretion. 7. Visitors-none at this time. 8. Activities: soft cart items approved per RN discretion. 9. Bathroom privileges with escort in the ED, available in room without limitation on M/S. 10. Phone: contact limited to family at this time, via cordless phone at RN discretion. 11. Due to VOLUNTARY status, if patient wishes to leave [facility], staff will contact [facility] Crisis Screener ([phone]) and On-Call Deputy Attorney General ([phone]) as soon as possible. In the event of elopement, notify [facility] Police ([phone]). Patient is currently voluntarily at [facility] and seeking inpatient admission when a bed becomes available. [facility] Frontline Funeral Pre Arrangement Counselor will continue seeking placement. Please contact the Cable Tender Deputy Attorney General ([phone]) and [facility] Funeral Pre Arrangement Counselor ([phone]) for any needed changes in the Safety Plan. Safety plan has been provided to interdepartmental care team.
--- NOTE | 2022-10-29 10:22 | CMPROGNOTE_ITS ---
- If Service Date Differs Date of service: 10/29/22 Time of Service: 10:22 Care Management Progress Note S/O: Ismael is medically cleared per provider and [facility] screened pt today. His case is reviewed with Alejandra/CHECO, Dr. Spring/Hospitalist, Luisa/Primary RN and Eleanor/RNCM. The recommendation at this time is for Ismael to remain at [facility] voluntarily while awaiting inpatient psych treatment. Ismael is agreeable to this plan. Per hospitalist and crisis screener there is a plan to EE patient if Ismael wants to leave. CM will continue to follow. A: Ismael is a 57 year old male admitted to [facility] on 10/26/22 for SI, alcohol withdrawal. P: Ismael is being closely monitored in the ICU for alcohol withdrawal. Once he becomes medically cleared, he will be assessed by [facility] for potential inpatient psychiatric treatment. He will transfer to a facility vs return home with a plan for safety in the community. He will meet with palliative care while inpatient, if available, to discuss his chronic pain. He will follow up with his PCP and discharge plan of care. CM will continue to follow.
[2022-10-29] MEDS: Lidocaine 5% Patch 1 PATCH TP (17:32)
--- NOTE | 2022-10-29 17:44 | NUR.NOTE ---
Nursing Note: Upon this RN entering the room the patient states I have a few questions, as I have a lot of things on my mind. Is there any way I can get a pen and paper to write a letter to my . I have a lot of financial things I need to discuss with her. I was never expecting to be sent to a mental hospital. I feel like I know what I did was wrong and I regret doing this. I am worried about my grand daughters IEP. They know my character and know I would never hurt anyone. I did this to get the attention of doctors because no one has listened to me about my pain. As the patient was stating this, he had tears rolling down his cheeks. This RN provided the patient with emotional support. This RN educated the patient on hospital policy regarding personal belongings in the room with a patient on suicidal precautions. Patient is agreeable to speak with care managers tomorrow about getting help with further personal affairs. When this RN left the room the patient appeared to be comfortable. Charge nurse made aware of this situation
--- NOTE | 2022-10-29 18:27 | DI.VRAD_ITS ---
PROCEDURE INFORMATION: Exam: CT Head Without Contrast Exam date and time: 10/29/2022 18:17 Age: 57 years old Clinical indication: Other: Suspected old CVA, unilateral paresthesias TECHNIQUE: Imaging protocol: Computed tomography of the head without contrast. Radiation optimization: All CT scans at this facility use at least one of these dose optimization techniques: automated exposure control; mA and/or kV adjustment per patient size (includes targeted exams where dose is matched to clinical indication); or iterative reconstruction. COMPARISON: CT HEAD CERVICAL SPINE WO 09/21/2022 11:32 FINDINGS: Brain: Atrophy and chronic appearing white matter changes. No edema or hemorrhage. Cerebral ventricles: No ventriculomegaly. Paranasal sinuses: Sinus disease has worsened. Mucosal thickening most pronounced left maxillary sinus, overall moderate. No air-fluid levels. Mastoid air cells: No mastoid effusion. Bones/joints: No acute fracture. Soft tissues: No suspicious lesions. IMPRESSION: 1. No acute intracranial findings. 2. Sinus disease. Dictated and Authenticated by: Jewell Prakash MD. Ordering:DANAY Stark MD
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
[2022-10-29] MEDS: Gabapentin 400 MG CAP PO (19:53)
[2022-10-29] MEDS: Hydrocortisone 1% CR 30 GM TUBE TP (19:54)
[2022-10-29] MEDS: Melatonin 3 MG TAB PO (23:08)
[2022-10-29] MEDS: oxyCODONE 5 MG TAB PO (23:08)
[2022-10-30] MEDS: Acetaminophen 325 MG TAB PO (03:53)
[2022-10-30 03:58] VITALS: BP 115/79; PULSE 104; RESP 16; TEMP 36.7; O2SAT 98
[2022-10-30] MEDS: oxyCODONE 5 MG TAB PO ×3 (04:09→22:52)
[2022-10-30 06:07] LABS: Abs Immature Grans 0.07 10^3/uL (0.0-0.06); Absolute Basophil Count 0.04 10^3/uL (0.0-0.2); Absolute Lymphocyte Count 1.54 10^3/uL (1.2-3.4); Absolute Monocyte Count 0.71 10^3/uL (0.1-0.8); Absolute Neutrophil Count 3.38 10^3/uL (1.2-6.7); Basophils % 0.7; Eosinophils % 3.4; HCT 40.2 % (40.0-50.0); HGB 13.1 g/dL (13.5-17.5); Immature Grans % 1.2; Lymphocytes % 25.9; MCH 32.8 pg (27.0-33.0); MCHC 32.6 % (32.0-36.0); MCV 101 fL (80-95); MPV 9.6 fL (8.0-11.0); Neutrophils % 56.8; Platelet Count 214 10^3/uL (130-400); RDW 12.2 % (11.8-14.1); RDW-SD 45.6 fL; WBC 5.94 10^3/uL (4.4-10.8)
[2022-10-30] MEDS: Lidocaine Patch Removal 1 EACH TP (06:33)
[2022-10-30 06:50] LABS: Anion Gap 9.6 mmol/L (3-11); BUN 8 mg/dL (7-18); CO2 26.4 mmol/L (21.0-32.0); CREATININE 0.8 mg/dL (0.70-1.30); Calcium 8.7 mg/dL (8.5-10.1); Chloride 100 mmol/L (98-107); Estimated GFR 102.58 (mL/min/1.73m2); Glucose 134 mg/dL (74-106); Magnesium 1.8 mg/dL (1.8-2.4); Potassium 4.2 mmol/L (3.5-5.1); Sodium 136 mmol/L (136-145)
[2022-10-30 08:01] VITALS: BP 137/92; PULSE 86; RESP 17; TEMP 36.6; O2SAT 100
[2022-10-30] MEDS: Hydrocortisone 1% CR 30 GM TUBE TP ×2 (08:26→20:59)
[2022-10-30] MEDS: Ascorbic Acid 500 MG TAB 1000 MG PO (08:27)
[2022-10-30] MEDS: Celecoxib 100 MG CAP PO ×2 (08:27→20:58)
[2022-10-30] MEDS: Gabapentin 400 MG CAP PO ×2 (08:27→14:05)
[2022-10-30] MEDS: Cholecalciferol (Vitamin D3) 1,000 UNIT TAB 2000 UNITS PO (08:27)
[2022-10-30] MEDS: Folic Acid 1 MG TAB PO (08:27)
[2022-10-30] MEDS: Multivitamin TAB 1 TAB PO (08:28)
[2022-10-30] MEDS: Zinc Sulfate 220 MG TAB PO (08:28)
[2022-10-30] MEDS: guaiFENesin 600 MG TABCR PO ×2 (08:28→20:59)
[2022-10-30] MEDS: Thiamine 100 MG TAB PO (08:28)
--- NOTE | 2022-10-30 09:02 | PDOC.CMSAFE ---
- If Service Date Differs Date of service: 10/30/22 Time of Service: 09:02 Care Management Safety Plan Status: Voluntary - Reason for Wait Reason for Wait: Inpatient Admission VOLUNTARY FOR INPATIENT PSYCHIATRIC STABILIZATION. Patient is appropriate in all interactions since arriving at [facility]; Pt has demonstrated appropriate coping and communication skills, has articulated his or her needs and concerns and is fully engaged during staff interactions. 10/30/22 No changes to plan. Per provider, Ismael will be off covid precautions 10/31/22. [facility] Clinician Stanton is aware and will place referrals once pt is off precautions, or sooner if allowable per referral policy. 10/29/22 Ismael is medically cleared per provider and [facility] screened pt today. His case is reviewed with Alejandra/CHECO, Dr. Spring/Hospitalist, Luisa nevarez RN and Eleanor/AGUSTINA. The recommendation at this time is for Ismael to remain at [facility] voluntarily while awaiting inpatient psych treatment. Ismael is agreeable to plan. Per hospitalist and crisis screener there is a plan to EE patient if Ismael wants to leave. CM will continue to follow. Safety plan has been established with patient, and care team, to adhere to patient goals, identify restrictions based on behavioral status, address nutrition, and determine allowed personal belongings, tools for hygiene and personal care. Determine level of activity including ambulation, level of supervision, visitors, and determine privileges based on behaviors and level of engagement by pt. SAFETY PLAN: 1. Will remain on suicide precautions. In Paper Clothes 2. Will remain in room under direct supervision of one-on-one staff at all times provided by CPSO; SARABJIT, SUPPLY CATALOGUER director of revenue. 3. May have paper cups, plates, finger foods as well as a cardboard spoon with which to eat meals. 4. Follow [facility] Management of the Admitted Behavioral Health Patient policy. 5. Comfort bath system only, shower permitted with escort at RN discretion. 6. No personal belongings-soft items permitted at RN discretion. 7. Visitors-none at this time. 8. Activities: soft cart items approved per RN discretion. 9. Bathroom privileges with escort in the ED, available in room without limitation on M/S. 10. Phone: contact limited to family at this time, via cordless phone at RN discretion. 11. Due to VOLUNTARY status, if patient wishes to leave [facility], staff will contact [facility] Crisis Screener ([phone]) and On-Call Psych Coordinator ([phone]) as soon as possible. In the event of elopement, notify [facility] Police ([phone]). Patient is currently voluntarily at [facility] and seeking inpatient admission when a bed becomes available. [facility] Frontline Online Trader will continue seeking placement. Please contact the Practice Clinician Psych Coordinator ([phone]) and [facility] Online Trader ([phone]) for any needed changes in the Safety Plan. Safety plan has been provided to interdepartmental care team.
--- NOTE | 2022-10-30 09:03 | PDOC.CMPRO ---
- If Service Date Differs Date of service: 10/30/22 Time of Service: 09:03 Care Management Progress Note S/O: Ismael will remain at [facility] voluntarily while awaiting inpatient psych treatment. He will be screened by [facility] crisis clinicians per protocol. Ismael is agreeable to this plan. Per Dr. Spring, pt will be off covid precautions tomorrow. [facility] Clinician Stanton is made aware and will place referrals once pt is off precautions, or sooner if allowable per referral policy. Per hospitalist and crisis screener there is a plan to EE patient if Ismael wants to leave. CM will continue to follow. A: Ismael is a 57 year old male admitted to [facility] on 10/26/22 for SI, alcohol withdrawal. P: Ismael is being closely monitored in the ICU for alcohol withdrawal. Once he becomes medically cleared, he will be assessed by [facility] for potential inpatient psychiatric treatment. He will transfer to a facility vs return home with a plan for safety in the community. He will meet with palliative care while inpatient, if available, to discuss his chronic pain. He will follow up with his PCP and discharge plan of care. CM will continue to follow.
[2022-10-30] MEDS: Enoxaparin 40 MG/0.4 ML SYR SC (10:34)
[2022-10-30 12:42] VITALS: BP 127/89; PULSE 108; RESP 20; TEMP 36.4; O2SAT 99
--- NOTE | 2022-10-30 13:25 | PDOC.MHPN2 ---
Date of service: 10/30/22 Time of Service: 11:54 Mental Health Emergency Note Release [facility] release signed:: No Reason for Visit Suicide attempt In the last 2 weeks has the pt presented for ES prior to today?: No Client Information Client is: New Well Housed: Yes Non Suicidal Self Injury Current: No History: yes, Updated CM Safety Risk/Harm to Self or Others Current Ideation to Harm Self or Others: No Risk: Does risk to harm exist?: yes. Access to means: Yes. Types of Means: Firearms, Other weapons and Medication. Counseling provided: Yes Risk: Moderate Risk Duty to warn indicated: No Asssessment/Mental Status Appearance: Unremarkable Attitude: Cooperative Behavior: Unremarkable Speech: Normal Affect: Normal Mood: Sad and Stressed Thought process: Unremarkable Hallucinations: No Delusions: No Attention: Unremarkable Perception: Not impaired Orientation: Fully orientated Memory: Intact Insight: Fair Judgement: Fair Neurovegetative Symptoms Sleep: No change (Client reports he hasn't been sleeping well.) Appetitie: Increase Interests: No change Energy: No change Substance Use: Other Drug Issues: Other Do you use nicotine?: No Have you used substances in the last 7 days?: No Additional Issues: Assaultive/Threatening Behavior: No Medical Concerns: Yes Client engaged in active self harm w/weapon: No Threatening to run away: No Child reported abuse/neglect: No Voluntarily presenting for services: Yes Domestic violence is a concern: No Extreme Psychosis or extreme behavior is present: No Impression This client presented to the ED after an attempt to end his life by suicide. This client shows somewhat better awareness around his actions; his pattern of minimizing the incident is worrisome. Client is agreeable to staying at the hospital for follow up evaluations to better determine a disposition plan especially in relation to him returning to the community (or if seeking treatment is the best route for this client's case). Client seemed fairly distressed about being at the hospital and away from his family. No HI/SI/NSSI endorsed. Resources Reosurces reviewed and given:: [id number] [facility] Plan/Disposition Recommended Disposition: Hospitalization No. Person reported agreement to plan: Yes Reports/communication Outcome discussed with: ED/Personnel
[2022-10-30 15:05] VITALS: BP 122/88; PULSE 88; RESP 18; TEMP 36.6; O2SAT 100
[2022-10-30] MEDS: Lidocaine 5% Patch 1 PATCH TP (17:45)
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
[2022-10-30] MEDS: Gabapentin 300 MG CAP 600 MG PO (20:58)
[2022-10-30] MEDS: Melatonin 3 MG TAB PO (20:59)
[2022-10-30 22:52] VITALS: BP 117/80; PULSE 81; RESP 16; TEMP 37; O2SAT 99
[2022-10-31 03:43] VITALS: BP 119/84; PULSE 92; RESP 16; TEMP 37; O2SAT 99
[2022-10-31] MEDS: Lidocaine Patch Removal 1 EACH TP (05:45)
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
[2022-10-31 07:13] VITALS: BP 134/89; PULSE 109; RESP 18; TEMP 36.6; O2SAT 97
[2022-10-31] MEDS: Enoxaparin 40 MG/0.4 ML SYR SC (09:47)
[2022-10-31] MEDS: Ascorbic Acid 500 MG TAB 1000 MG PO (09:47)
[2022-10-31] MEDS: Thiamine 100 MG TAB PO (09:47)
[2022-10-31] MEDS: Celecoxib 100 MG CAP PO ×2 (09:48→21:24)
[2022-10-31] MEDS: Folic Acid 1 MG TAB PO (09:48)
[2022-10-31] MEDS: Multivitamin TAB 1 TAB PO (09:48)
[2022-10-31] MEDS: guaiFENesin 600 MG TABCR PO ×2 (09:48→21:24)
[2022-10-31] MEDS: Zinc Sulfate 220 MG TAB PO (09:48)
[2022-10-31] MEDS: Gabapentin 300 MG CAP 600 MG PO ×3 (09:48→21:24)
[2022-10-31] MEDS: Cholecalciferol (Vitamin D3) 1,000 UNIT TAB 2000 UNITS PO (09:48)
[2022-10-31] MEDS: Hydrocortisone 1% CR 30 GM TUBE TP ×2 (09:56→21:25)
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
[2022-10-31 12:15] VITALS: BP 143/91; PULSE 103; RESP 20; TEMP 35.4; O2SAT 97
[2022-10-31] MEDS: Acetaminophen 325 MG TAB PO (15:01)
[2022-10-31 16:15] VITALS: BP 149/91; PULSE 68; RESP 20; TEMP 36.7; O2SAT 98
--- NOTE | 2022-10-31 16:29 | PDOC.CMSAFE ---
- If Service Date Differs Date of service: 10/31/22 Time of Service: 16:29 Care Management Safety Plan Status: Voluntary - Reason for Wait Reason for Wait: Inpatient Admission VOLUNTARY FOR INPATIENT PSYCHIATRIC STABILIZATION. Patient is appropriate in all interactions since arriving at [facility]; Pt has demonstrated appropriate coping and communication skills, has articulated his or her needs and concerns and is fully engaged during staff interactions. 10/31/22: Huddle at approximately 2pm with Leisa Benitez RN CC, Ligia RN Tape Librarian, Alexandra NAVA, and Lay QUIÑONES. [facility] and [facility] staff agree that inpatient psychiatric treatment is recommended at this time. Medication management at psychiatric facility may also support pain management. [facility] reports that an EE will be initiated if he decides he does not want to go to treatment voluntarily, due to the severity of his attempt and high risk for recurrence. Safety plan has been established with patient, and care team, to adhere to patient goals, identify restrictions based on behavioral status, address nutrition, and determine allowed personal belongings, tools for hygiene and personal care. Determine level of activity including ambulation, level of supervision, visitors, and determine privileges based on behaviors and level of engagement by pt. SAFETY PLAN: 1. Will remain on suicide precautions. In Paper Clothes 2. Will remain in room under direct supervision of one-on-one staff at all times provided by [employer]; SARABJIT, NOEMY application support developer. 3. May have paper cups, plates, finger foods as well as a cardboard spoon with which to eat meals. 4. Follow [facility] Management of the Admitted Behavioral Health Patient policy. 5. Comfort bath system only, shower permitted with escort at RN discretion. 6. No personal belongings-soft items permitted at RN discretion. 7. Visitors-none at this time. 8. Activities: soft cart items approved per RN discretion. 9. Bathroom privileges with escort in the ED, available in room without limitation on M/S. 10. Phone: contact limited to family at this time, via cordless phone at RN discretion. 11. Due to VOLUNTARY status, if patient wishes to leave [facility], staff will contact [facility] Crisis Screener ([phone]) and On-Call Data Center Engineer ([phone]) as soon as possible. In the event of elopement, notify [facility] Police ([phone]). Patient is currently voluntarily at [facility] and seeking inpatient admission when a bed becomes available. [facility] Frontline Senior Telecommunications Specialist will continue seeking placement. Please contact the Treadle Cut Off Saw Operator Data Center Engineer ([phone]) and [facility] Senior Telecommunications Specialist ([phone]) for any needed changes in the Safety Plan. Safety plan has been provided to interdepartmental care team.
--- NOTE | 2022-10-31 16:49 | PDOC.CMPRO ---
- If Service Date Differs Date of service: 10/31/22 Time of Service: 16:49 Care Management Progress Note S/O: CM met with Morro this morning, Morro wanted to discuss having Ismael sign paperwork to provide him access to his medical records in order for Morro to start a conversation with administration at [facility]. CM reviewed the plan with Morro, as Ismael is now medically cleared, and was assessed by [facility], who feels that he is appropriate for inpatient psychiatric treatment. CM called Ismael, who remains on Covid precautions, who was upset about the conversation he had with CHECO Ram, as she stated that [facility] is seeking inpatient psychiatric treatment. Ismael expressed remorse for his actions and feels that he doesn't need psychiatric treatment, he simply needs his pain to be well controlled. CM asked about his pain level at [facility], and he reported that it is manageable. CM asked what the barriers are to him accepting treatment, which he replied that he needs to be home to help his and his grand children, and he is especially concerned that his grand children will be taken away. He is willing to engage in a safety plan, sobriety support, and outpatient therapy. CM reviewed this with [facility] and [facility] staff during a huddle. MD and [facility] agree that pursing inpatient psychiatric treatment is the safest option for him at this time. Leanna [facility], will call and discuss this with Ismael further. CM will continue to follow. A: Ismael is a 57 year old male admitted to [facility] on 10/26/22 for SI, alcohol withdrawal. P: Ismael is now medically cleared and has been assessed by [facility], who feel that he meets criteria for inpatient psychiatric treatment. He will transfer to a facility vs return home with a plan for safety in the community. He will meet with palliative care while inpatient, if available, to discuss his chronic pain. He will follow up with his PCP and discharge plan of care. CM will continue to follow.
[2022-10-31] MEDS: Lidocaine 5% Patch 1 PATCH TP (18:00)
[2022-10-31] MEDS: Melatonin 3 MG TAB PO (21:24)
[2022-10-31 21:30] VITALS: BP 118/87; PULSE 100; RESP 20; TEMP 36.6; O2SAT 96
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
[2022-10-31] MEDS: Melatonin 3 MG TAB 6 MG PO (22:58)
[2022-10-31] MEDS: Amitriptyline 10 MG TAB PO (22:58)
[2022-11-01] MEDS: oxyCODONE 5 MG TAB PO ×3 (02:17→17:08)
[2022-11-01] MEDS: Lidocaine Patch Removal 1 EACH TP (06:24)
[2022-11-01 07:40] VITALS: BP 137/94; PULSE 93; RESP 18; TEMP 36.3; O2SAT 100
[2022-11-01] MEDS: Cholecalciferol (Vitamin D3) 1,000 UNIT TAB 2000 UNITS PO (08:57)
[2022-11-01] MEDS: Folic Acid 1 MG TAB PO (08:57)
[2022-11-01] MEDS: Ascorbic Acid 500 MG TAB 1000 MG PO (08:57)
[2022-11-01] MEDS: Celecoxib 100 MG CAP PO ×2 (08:57→21:34)
[2022-11-01] MEDS: guaiFENesin 600 MG TABCR PO ×2 (08:58→21:34)
[2022-11-01] MEDS: Gabapentin 300 MG CAP 600 MG PO ×3 (08:58→23:18)
[2022-11-01] MEDS: Thiamine 100 MG TAB PO (08:59)
[2022-11-01] MEDS: Zinc Sulfate 220 MG TAB PO (08:59)
[2022-11-01] MEDS: Multivitamin TAB 1 TAB PO (08:59)
[2022-11-01] MEDS: Normal Saline Flush 10 ML SYR IVP (09:00)
[2022-11-01] MEDS: ALPRAZolam 0.25 MG TAB PO (10:00)
[2022-11-01] MEDS: Enoxaparin 40 MG/0.4 ML SYR SC (10:00)
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
[2022-11-01 11:44] VITALS: BP 114/81; PULSE 95; RESP 18; TEMP 36.9; O2SAT 99
[2022-11-01] MEDS: Acetaminophen 325 MG TAB PO (12:06)
[2022-11-01] MEDS: Hydrocortisone 1% CR 30 GM TUBE TP (12:06)
--- NOTE | 2022-11-01 13:48 | CMSP_ITS ---
- If Service Date Differs Date of service: 11/01/22 Time of Service: 13:48 Care Management Safety Plan Status: Voluntary - Reason for Wait Reason for Wait: Inpatient Admission VOLUNTARY FOR INPATIENT PSYCHIATRIC STABILIZATION. Patient is appropriate in all interactions since arriving at [facility]; Pt has demonstrated appropriate coping and communication skills, has articulated his or her needs and concerns and is fully engaged during staff interactions. [facility] and [facility] staff agree that inpatient psychiatric treatment is recommended at this time. Medication management at psychiatric facility may also support pain management. [facility] reports that an EE will be initiated if he decides he does not want to go to treatment voluntarily, due to the severity of his attempt and high risk for recurrence. Safety plan has been established with patient, and care team, to adhere to patient goals, identify restrictions based on behavioral status, address nutrition, and determine allowed personal belongings, tools for hygiene and personal care. Determine level of activity including ambulation, level of supervision, visitors, and determine privileges based on behaviors and level of engagement by pt. SAFETY PLAN: 1. Will remain on suicide precautions. In Paper Clothes 2. Will remain in room under direct supervision of one-on-one staff at all times provided by CPSO; SARABJIT, ALARM SIGNAL OPERATOR non morse intercept technician. 3. May have paper cups, plates, finger foods as well as a cardboard spoon with which to eat meals. 4. Follow [facility] Management of the Admitted Behavioral Health Patient policy. 5. Comfort bath system only, shower permitted with escort at RN discretion. 6. No personal belongings-soft items permitted at RN discretion. 7. Visitors-none at this time. 8. Activities: soft cart items approved per RN discretion. 9. Bathroom privileges with escort in the ED, available in room without limitation on M/S. 10. Phone: contact limited to family at this time, via cordless phone at RN discretion. 11. Due to VOLUNTARY status, if patient wishes to leave [facility], staff will contact [facility] Crisis Screener ([phone]) and On-Call Electronic Equipment Set Up Operator ([phone]) as soon as possible. In the event of elopement, notify [facility] Police ([phone]). Patient is currently voluntarily at [facility] and seeking inpatient admission when a bed becomes available. [facility] Frontline Spanish Tutor will continue seeking placement. Please contact the Chief Service Dispatcher Electronic Equipment Set Up Operator ([phone]) and [facility] Spanish Tutor ([phone]) for any needed changes in the Safety Plan. Safety plan has been provided to interdepartmental care team.
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
[2022-11-01 15:47] VITALS: BP 146/89; PULSE 91; RESP 16; TEMP 36.9; O2SAT 99
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
[2022-11-01] MEDS: Lidocaine 5% Patch 1 PATCH TP (17:08)
[2022-11-01 19:02] VITALS: BP 133/83; PULSE 106; RESP 16; TEMP 37.1; O2SAT 96
[2022-11-01] MEDS: Amitriptyline 10 MG TAB PO (21:34)
[2022-11-01] MEDS: Melatonin 3 MG TAB 6 MG PO (21:34)
[2022-11-01 23:18] VITALS: BP 112/74; PULSE 88; RESP 18; TEMP 36.5; O2SAT 97
[2022-11-02 02:15] VITALS: BP 118/80; PULSE 88; RESP 18; TEMP 36.6; O2SAT 97
[2022-11-02] MEDS: Lidocaine Patch Removal 1 EACH TP (05:20)
[2022-11-02 05:52] LABS: HCT 35.8 % (40.0-50.0); HGB 11.7 g/dL (13.5-17.5); MCH 33.1 pg (27.0-33.0); MCHC 32.7 % (32.0-36.0); MCV 101 fL (80-95); MPV 9.7 fL (8.0-11.0); Platelet Count 213 10^3/uL (130-400); RBC 3.53 10^6/uL (4.36-5.78); RDW 12.2 % (11.8-14.1); WBC 5.59 10^3/uL (4.4-10.8)
[2022-11-02] MEDS: ALPRAZolam 0.25 MG TAB PO (07:34)
[2022-11-02 08:05] VITALS: BP 141/101; PULSE 118; RESP 19; TEMP 36.8; O2SAT 97
[2022-11-02] MEDS: Cholecalciferol (Vitamin D3) 1,000 UNIT TAB 2000 UNITS PO (08:39)
[2022-11-02] MEDS: guaiFENesin 600 MG TABCR PO ×2 (08:40→20:35)
[2022-11-02] MEDS: Celecoxib 100 MG CAP PO ×2 (08:40→20:35)
[2022-11-02] MEDS: Gabapentin 300 MG CAP 600 MG PO ×3 (08:41→20:34)
[2022-11-02] MEDS: Ascorbic Acid 500 MG TAB 1000 MG PO (08:41)
[2022-11-02] MEDS: Zinc Sulfate 220 MG TAB PO (08:41)
[2022-11-02] MEDS: Enoxaparin 40 MG/0.4 ML SYR SC (11:10)
[2022-11-02] MEDS: oxyCODONE 5 MG TAB PO ×2 (11:10→22:36)
[2022-11-02 11:14] VITALS: BP 156/98; PULSE 111; RESP 18; TEMP 37.2; O2SAT 98
--- NOTE | 2022-11-02 11:52 | NUR.NOTE ---
Nursing Note: Discussing pain w/ pt. Pt states his pain is 8/10, further stating, If I could just get my hands on some of these people, I could show them how much pain I'm in.
--- NOTE | 2022-11-02 12:31 | NUR.NOTE ---
Nursing Note: Covid-19 PCR ordered; rapid home test provided by hospital treating plant supervisor. Test indicates no covid infection.
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
--- NOTE | 2022-11-02 17:24 | PDOC.CMPRO ---
- If Service Date Differs Date of service: 11/02/22 Time of Service: 17:24 Care Management Progress Note S/O: Ismael was walking around in his room when NURIA met with him. He reported I passed my Covid test!, which he was happy about. NURIA coordinated a zoom with CHECO Palmer, which was a good conversation, per report. His CPSO reported that he appears to be in a good mood since talking to [facility]. NURIA discussed his plan with [facility], [facility], CM faxed RN note indicating negative Covid antigen test to . He remains voluntary for inpatient psychiatric treatement. NURIA will continue to follow. A: Ismael is a 57 year old male admitted to [facility] on 10/26/22 for SI, alcohol withdrawal. P: Ismael is now medically cleared and has been assessed by [facility], who feel that he meets criteria for inpatient psychiatric treatment. He will transfer to a facility vs return home with a plan for safety in the community. He will meet with palliative care while inpatient, if available, to discuss his chronic pain. He will follow up with his PCP and discharge plan of care. CM will continue to follow.
[2022-11-02] MEDS: Lidocaine 5% Patch 1 PATCH TP (17:45)
--- NOTE | 2022-11-02 17:48 | CMSP_ITS ---
- If Service Date Differs Date of service: 11/02/22 Time of Service: 17:48 Care Management Safety Plan Status: Voluntary - Reason for Wait Reason for Wait: Inpatient Admission VOLUNTARY FOR INPATIENT PSYCHIATRIC STABILIZATION. Patient is appropriate in all interactions since arriving at [facility]; Pt has demonstrated appropriate coping and communication skills, has articulated his or her needs and concerns and is fully engaged during staff interactions. [facility] and [facility] staff agree that inpatient psychiatric treatment is recommended at this time. Medication management at psychiatric facility may also support pain management. [facility] reports that an EE will be initiated if he decides he does not want to go to treatment voluntarily, due to the severity of his attempt and high risk for recurrence. Safety plan has been established with patient, and care team, to adhere to patient goals, identify restrictions based on behavioral status, address nutrition, and determine allowed personal belongings, tools for hygiene and personal care. Determine level of activity including ambulation, level of supervision, visitors, and determine privileges based on behaviors and level of engagement by pt. SAFETY PLAN: 1. Will remain on suicide precautions. In Paper Clothes 2. Will remain in room under direct supervision of one-on-one staff at all times provided by CPSO; SARABJIT, FOOD OR BAGGAGE HANDLING RAMPMAN hopper operator. 3. May have paper cups, plates, finger foods as well as a cardboard spoon with which to eat meals. 4. Follow [facility] Management of the Admitted Behavioral Health Patient policy. 5. Comfort bath system only, shower permitted with escort at RN discretion. 6. No personal belongings-soft items permitted at RN discretion. 7. Visitors-none at this time. 8. Activities: soft cart items approved per RN discretion. 9. Bathroom privileges with escort in the ED, available in room without limitation on M/S. 10. Phone: contact limited to family at this time, via cordless phone at RN discretion. 11. Due to VOLUNTARY status, if patient wishes to leave [facility], staff will contact [facility] Crisis Screener ([phone]) and On-Call Injection Molding Supervisor ([phone]) as soon as possible. In the event of elopement, notify [facility] Police ([phone]). Patient is currently voluntarily at [facility] and seeking inpatient admission when a bed becomes available. [facility] Frontline Corporate Development Analyst will continue seeking placement. Please contact the Novelty Candy Maker Injection Molding Supervisor ([phone]) and [facility] Corporate Development Analyst ([phone]) for any needed changes in the Safety Plan. Safety plan has been provided to interdepartmental care team.
[2022-11-02 19:05] VITALS: BP 139/100; PULSE 110; RESP 16; TEMP 37.3; O2SAT 98
[2022-11-02] MEDS: Hydrocortisone 1% CR 30 GM TUBE TP (20:37)
[2022-11-02] MEDS: Melatonin 3 MG TAB 6 MG PO (22:35)
[2022-11-02] MEDS: Amitriptyline 10 MG TAB PO (22:35)
[2022-11-02 23:30] VITALS: BP 119/84; PULSE 100; RESP 22; TEMP 36.7; O2SAT 97
[2022-11-03] MEDS: Lidocaine Patch Removal 1 EACH TP (06:05)
[2022-11-03] MEDS: Ascorbic Acid 500 MG TAB 1000 MG PO (08:01)
[2022-11-03] MEDS: Zinc Sulfate 220 MG TAB PO (08:01)
[2022-11-03] MEDS: Celecoxib 100 MG CAP PO (08:01)
[2022-11-03] MEDS: guaiFENesin 600 MG TABCR PO (08:01)
[2022-11-03] MEDS: Gabapentin 300 MG CAP 600 MG PO ×2 (08:01→13:09)
[2022-11-03] MEDS: Cholecalciferol (Vitamin D3) 1,000 UNIT TAB 2000 UNITS PO (08:02)
[2022-11-03] MEDS: oxyCODONE 5 MG TAB PO (08:07)
[2022-11-03 10:21] VITALS: BP 123/84; PULSE 99; RESP 19; TEMP 36.6; O2SAT 97
[2022-11-03] MEDS: Enoxaparin 40 MG/0.4 ML SYR SC (10:40)
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
[2022-11-03] MEDS: ALPRAZolam 0.25 MG TAB PO (13:09)
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
--- NOTE | 2022-11-03 16:52 | CMDISCH_ITS ---
- If Service Date Differs Date of service: 11/03/22 Time of Service: 16:52 LACE Index Scoring Tool - Questions: Length of Stay (in days): 7 - 13 Acuity (Admit via E.D.?): Yes E.D. Visits: 3 - Answers: Total Score: 11 Risk of Readmission: High Risk Care Management Discharge Reason for Hospitalization: Alcohol withdrawal, suicide attempt Discharge Plan: Ismael transferred to [facility] today for voluntary inpatient psychiatric treatment. He was transported via [facility], coordinated by [facility]. CM provided new patient paperwork for [facility], which he filled out, and CM faxed to their facility in order to make a follow up appointment for him with a new PCP. He will follow up with his discharge plan of care. He was happy to be going for treatment, and optimistic about his future. Patient/Family Education Needs: Review discharge instructions and limitations, discussion of self care needs including ask me three. Services Needed at Discharge: Psychiatric Facility ([facility]), Transp ortation ([place] [facility]) - Disposition Disposition: [facility]
== END 2022-11-03 14:20 | DRG 896 ==
LOC: ER 10-26 07:44 → ICU 10-26 10:20 → MS 10-28 21:13
PROVIDERS: Emergency Medicine; Internal Medicine; Admitting Provider Family Medicine; Emergency Provider Emergency Medicine; Visit Provider Family Medicine
DX: F10.129 Alcohol abuse with intoxication, unspecified (principal); U07.1 COVID-19; Y90.8 Blood alcohol level of 240 mg/100 ml or more; R11.2 Nausea with vomiting, unspecified; G89.29 Other chronic pain; F43.10 Post-traumatic stress disorder, unspecified; D64.9 Anemia, unspecified; K21.9 Gastro-esophageal reflux disease without esophagitis; F17.210 Nicotine dependence, cigarettes, uncomplicated; N40.1 Benign prostatic hyperplasia with lower urinary tract symptoms; R35.0 Frequency of micturition; M54.50 Low back pain, unspecified; K44.9 Diaphragmatic hernia without obstruction or gangrene; F12.90 Cannabis use, unspecified, uncomplicated; T14.91XA Suicide attempt, initial encounter; F10.139 Alcohol abuse with withdrawal, unspecified; G89.21 Chronic pain due to trauma; K70.10 Alcoholic hepatitis without ascites; E78.5 Hyperlipidemia, unspecified; I10 Essential (primary) hypertension; F32.A Depression, unspecified; M25.59 Pain in other specified joint; R20.2 Paresthesia of skin
CPT/HCPCS: 36415; 80048; 80053; 80061; 80076; 80307; 82306; 82550; 84145; 85027; 87635; 96361; 96365; 99285; J1650; 70450; 76705; 80184; 80320; 80329; 81003; 82607; 82728; 82746; 83540; 83550; 83735; 84443; 85025; 85379; 85610; 86140; 94667; 99223; 99231; 99232; 99233; 99238; 99291; J0248; J2060; J2560; J3475; J3490

== ENCOUNTER 2022-12-08 16:12 | Emergency (ER) | payer MEDICARE, SELFPAY ==
[2022-12-08 16:18] VITALS: BP 155/138; PULSE 122; RESP 18; TEMP 36.9; O2SAT 96
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
== END 2022-12-08 18:14 ==
PROVIDERS: Emergency Provider Nurse Practitioner Family; PCP Nurse Practitioner
DX: F10.129 Alcohol abuse with intoxication, unspecified (principal); I10 Essential (primary) hypertension; Y90.0 Blood alcohol level of less than 20 mg/100 ml
CPT/HCPCS: 99282; 80320

== ENCOUNTER 2022-12-20 01:42 | Outpatient (CLI) | payer MEDICARE, SELFPAY ==
--- NOTE | 2022-12-20 07:00 | DI.CT_ITS ---
Exam(s) CT CHEST WO EXAM: CT CHEST WO CLINICAL HISTORY: Cough, SOB, 40 pack history.r06.02,r05.9. TECHNIQUE: Imaging protocol: Axial computed tomography images were obtained and coronal and sagittal reformatted images were created and reviewed. COMPARISON: CT CT CHEST/ABD/PEL WO from 09/21/2022 FINDINGS: Tracheobronchial tree: Patent where visualized. Pulmonary parenchyma: Moderate emphysematous changes are present in the lungs. No suspicious pulmona ry nodules are present. No focal consolidating infiltrates are seen. Mediastinum and Lulu: No dominant adenopathy or fluid collection. The esophagus is unremarkable.There is a large hiatal hernia. Thyroid gland: Unremarkable. Pleura: No effusion or pneumothorax. Heart: The heart is not dilated. Marked coronary artery calcification is present. No pericardial eff usion. Aorta: Thoracic aorta non-dilated. Atherosclerosis is present. Upper abdomen: There is diffuse fatty infiltration of the liver. Lymph nodes: Within normal limits. Soft tissues: Unremarkable. Bones:Within normal limits for the patient's age. IMPRESSION: 1. No evidence of a pulmonary mass or thoracic adenopathy. 2. Moderate emphysematous changes in the lungs. 3. Coronary artery disease and atherosclerosis. 4. Fatty infiltration of the liver. RADIATION DOSE DELIVERED: 532.83mGy.cm Total DLP 532.83mGy.cm Total DLP DATA REPOSITORY: All CT scans at this facility are submitted to the National Radiology Data Registry (NRDR) Dose Index Registry (DIR) with the [employer] (ACR). RADIATION OPTIMIZATION: All CT scans at this facility use at least one of these dose optimization te chniques: automated exposure control; mA and/or kV adjustment per patient size (includes targeted exa ms where dose is matched to clinical indication); or iterative reconstruction.
== END 2022-12-20 02:02 ==
LOC: DI 01:42
PROVIDERS: PCP Nurse Practitioner; Visit Provider Nurse Practitioner
DX: R05.8 Other specified cough (principal); R06.02 Shortness of breath; F17.210 Nicotine dependence, cigarettes, uncomplicated; J43.8 Other emphysema; K76.0 Fatty (change of) liver, not elsewhere classified
CPT/HCPCS: 71250

== ENCOUNTER 2022-12-27 15:12 | Outpatient (REF) | payer MEDICARE, SELFPAY ==
[2022-12-27 19:12] LABS: Abs Immature Grans 0.02 10^3/uL (0.0-0.06); Absolute Basophil Count 0.07 10^3/uL (0.0-0.2); Absolute Eosinophil Count 0.07 10^3/uL (0.0-0.7); Absolute Lymphocyte Count 1.63 10^3/uL (1.2-3.4); Absolute Monocyte Count 0.54 10^3/uL (0.1-0.8); Absolute Neutrophil Count 4.36 10^3/uL (1.2-6.7); HCT 40.2 % (40.0-50.0); HGB 12.7 g/dL (13.5-17.5); Immature Grans % 0.3; Lymphocytes % 24.4; MCH 28.6 pg (27.0-33.0); MCHC 31.6 % (32.0-36.0); MCV 91 fL (80-95); MPV 10.6 fL (8.0-11.0); Monocytes % 8.1; Neutrophils % 65.2; Platelet Count 297 10^3/uL (130-400); RBC 4.44 10^6/uL (4.36-5.78); RDW 14.7 % (11.8-14.1); RDW-SD 48.8 fL; WBC 6.69 10^3/uL (4.4-10.8)
[2022-12-27 19:19] LABS: ESR 24 mm/hr (0-20)
[2022-12-27 19:42] LABS: Hemoglobin A1C 5.1 % (<5.7)
[2022-12-27 21:13] LABS: Ferritin 71 ng/mL (26-388); TSH (W/Ref FT4) 0.84 uIU/mL (0.36-3.74)
[2022-12-28 17:48] LABS: Rheumatoid Factor 15.3 IU/mL (<12.0)
== END 2022-12-27 15:13 | disposition home or self-care (01) ==
LOC: LBN 15:12
PROVIDERS: PCP Nurse Practitioner; Referring Provider Nurse Practitioner; Visit Provider Nurse Practitioner
DX: D64.9 Anemia, unspecified (principal); I10 Essential (primary) hypertension; R73.01 Impaired fasting glucose; M25.50 Pain in unspecified joint; J45.909 Unspecified asthma, uncomplicated
CPT/HCPCS: 85652; 82728; 83036; 83550; 84443; 85025; 86038; 86431

== ENCOUNTER 2023-01-17 00:57 | Outpatient (CLI) | payer MEDICARE, SELFPAY ==
--- NOTE | 2023-01-17 06:00 | ETT_ITS ---
APPROVED REPORT Exam: Exercise Treadmill Patient Location: Out-Patient Room/Bed: Stress Nurse: Melvi Greenberg RN Ordering Provider:ANDREA TOUSSAINT, Contact Number: BMI: 27.09 Baseline Rhythm: Sinus Tachycardia Indications: CAD Medical History Medical History: Tobacco use, tachycardia, PTSD, pre-diabetes, palpitarions, HTN, HLD, GERD, anemia, chronic pain, ETOH abuse, COPD Cardiac Medications: Gabapentin, Vitamin D Allergies: Lisinopril, niacin, iodinated contrast Cardiac Risk Factors: HTN, CVD, HLD, pre-diabetes, smoker Previous Cardiac Procedures: None Pretest Chest Pain Characteristics: None Exercise History: Sedentary Physical Disabilities: None Lung Sounds: Clear to auscultation Heart Sounds: Tachycardia Stress Test Details Test: Exercise stress testing was performed using a Richard protocol. Rest Stress HR Resting HR Supine: 106 bpm Max Heart Rate (APMHR): 162 bpm Resting HR Standin bpm Target HR (85% APMHR): 138 bpm Max HR Achieved: 171 bpm % of APMHR: 106 Recovery HR: 113 bpm HR response to stress: Accelerated HR response to stress Comment: Patient notes having tobacco approx 1.5 hours prior to test. BP Resting BP Supine: 138/90 mmHg Resting BP Standin/94 mmHg Max BP: 174/80 mmHg Recovery BP: 146/98 mmHg BP response to stress: Normal blood pressure response to stress. ECG Resting ECG: Sinus Tachycardia Ectopy: None Stress ECG: Sinus Tachycardia ST Change: No significant ST segment changes noted Arrhythmia: Rare PAC Recovery ECG: Sinus tachycardia Recovery ST Change: No significant ST segment changes noted Recovery Arrhythmia: Rare PAC Clinical Reason for Termination: Target HR Achieved, cocnerns for patient safety on treadmill in next stage. Stress Symptoms: Dizziness, General Fatigue, Dyspnea Exercise duration: 2 min58 sec Highest Stage Reached: Stage 1: 1.7 mph at 10% grade. Exercise capacity: 4.64 METs Angina Score: None Smith Treadmill Score: 2.4 Rate Pressure Product: [id number] Stress ECG Conclusion 1. Resting electrocardiogram was within normal limits 2. Patient exercised on the Richard protocol and completed a workload of 4.64 METS 3. Normal blood pressure response to exercise. Accelerated heart rate response to exercise. The pat ient achieved greater than 100% of predicted heart rate for age 4. There was no electrocardiographic evidence of myocardial ischemia 5. There were no dysrhythmias Smith Treadmill Score is 2.4 which is Moderate risk. Stress Test Summary STAGE Time (mins) Speed (mph) Grade (%) HR BP SpO2 SYMPTOMS METS Supine 106 138/90 Standing 136 148/94 1 3 1.7 10 169 168/88 96 Mod dyspnea, dizziness 4.5 1 min recovery 156 170/90 95 Mod dyspnea, dizziness 3 min recovery 122 174/80 95 Dizziness, dyspnea resolved 6 min recovery 113 146/98 94 All symptoms resolved
== END 2023-01-17 01:17 ==
LOC: DI 00:57
PROVIDERS: PCP Nurse Practitioner; Visit Provider Nurse Practitioner
DX: I25.10 Atherosclerotic heart disease of native coronary artery without angina pectoris (principal)
CPT/HCPCS: 93016; 93018; 93017

== ENCOUNTER 2023-03-22 01:58 | Outpatient (CLI) | payer MEDICARE, SELFPAY ==
--- NOTE | 2023-03-22 08:15 | DI.US_ITS ---
Exam(s) US AXILLA LT EXAM: US AXILLA LT CLINICAL HISTORY: eval lump left axilla, AXILLARY MASS, R22.30, N63.32 TECHNIQUE: Ultrasound left axilla performed using standard protocol. COMPARISON: No exams were available for comparison FINDINGS: No suspicious cystic or solid masses are seen. There does appear a lymph node in the left axilla whi ch corresponds to the palpable abnormality. IMPRESSION: 1. No sonographically suspicious finding. 2. A left axillary lymph node appears to correspond to the palpable abnormality. DATA REPOSITORY:
== END 2023-03-22 02:18 ==
LOC: DI 01:59
PROVIDERS: PCP Nurse Practitioner; Visit Provider Nurse Practitioner
DX: N63.32 Unspecified lump in axillary tail of the left breast (principal); R22.30 Localized swelling, mass and lump, unspecified upper limb
CPT/HCPCS: 76642

== ENCOUNTER 2023-03-22 12:20 | Emergency (ER) | payer MEDICARE, SELFPAY ==
[2023-03-22 12:47] VITALS: BP 141/98; PULSE 119; RESP 17; TEMP 36.8; O2SAT 98
--- NOTE | 2023-03-22 13:58 | NUR.NOTE ---
Nursing Note: Access called and stated that patient left.
== END 2023-03-22 13:15 | disposition left against medical advice (07) ==
LOC: ER 12:40
PROVIDERS: PCP Nurse Practitioner
DX: Z53.21 Procedure and treatment not carried out due to patient leaving prior to being seen by health care provider (principal)

== ENCOUNTER 2023-03-24 10:22 | Outpatient (CLI) | payer MEDICARE, SELFPAY ==
--- NOTE | 2023-03-24 09:15 | DI.RAD_ITS ---
Exam(s) XR RIBS LT W PA LAT CHEST EXAM: XR RIBS LT W PA LAT CHEST CLINICAL HISTORY: Lt rib pain, R07.81, r/o fx, pain s/p fall TECHNIQUE: 2D digital imaging was performed. Six images are obtained. COMPARISON: CR XR CHEST 2V PA LATERAL from 04/27/2021 FINDINGS: MEDIASTINUM: There is again seen a hiatal hernia. HEART: Normal. PULMONARY VASCULATURE: Normal. LUNGS: Clear. PLEURAL SPACE: No pleural effusion or pneumothorax. BONE:Within normal limits for the patient's age. There is a mildly displaced fracture of the lateral aspect of the left clavicle. The acromioclavicular joint appears to be intact. LEFT RIBS: There is a nondisplaced fracture of the lateral aspect of the left 2nd rib (series 5, imag e 1). OTHER FINDINGS:Radiodense material is seen in the soft tissues of the right back. This is unchanged. IMPRESSION: 1. No acute pulmonary findings. 2. Mildly displaced fracture of the lateral aspect of the left clavicle. 3. Nondisplaced fracture of the lateral aspect of the left 2nd rib. DATA REPOSITORY: RADIATION DOSE DELIVERED:
--- NOTE | 2023-03-24 09:15 | DI.RAD_ITS ---
Exam(s) XR SHOULDER LT COMPLETE 2+V EXAM: XR SHOULDER LT COMPLETE 2+V CLINICAL HISTORY: Lt shoulder pain, M25.512, r/o fx. TECHNIQUE: 2D digital imaging was performed of the left shoulder. Four images were obtained. AP, G rashey, Y-view and axillary views were obtained. COMPARISON: No exams were available for comparison FINDINGS: BONES: There is acute mildly distracted fracture of the distal left clavicle. No bony destructive le ashlee is seen. There is also nondisplaced fracture involving the lateral aspect of the left 2nd rib. JOINTS: No dislocation present. The acromioclavicular and glenohumeral joints are well maintained. SOFT TISSUE: No pneumothorax. IMPRESSION: 1. Mildly distracted left distal clavicular fracture. 2. Nondisplaced left 2nd rib fracture. DATA REPOSITORY: RADIATION DOSE DELIVERED:
== END 2023-03-24 10:42 ==
LOC: DI 10:27
PROVIDERS: PCP Nurse Practitioner; Visit Provider Nurse Practitioner Family
DX: S22.32XA Fracture of one rib, left side, initial encounter for closed fracture; S42.022A Displaced fracture of shaft of left clavicle, initial encounter for closed fracture; X58.XXXA Exposure to other specified factors, initial encounter
CPT/HCPCS: 71046; 71100; 73030

== ENCOUNTER 2023-05-01 00:35 | Outpatient (CLI) | payer MEDICARE, SELFPAY ==
--- NOTE | 2023-05-01 08:15 | DI.NM_ITS ---
APPROVED REPORT Exam: Pharmacologic Patient Location: Out-Patient Room/Bed: Stress Nurse: Melvi Greenberg RN Ordering Provider:ELEUTERIO ROGEL, Contact Number: [phone] BMI: 25.17 Baseline Rhythm: Sinus Rhythm Indications: Chest pain Medical History Medical History: Hiatal hernia, nicotine dependence, clavicle fracture, hepatic steatosis, corany ath eroscleorsis, emphysema of lung, tobascco abuse, ETOH abuse, ST attempts, chronic pain, PTSD, anemia, GERD, tachycardia, depression, prediabetes, HLD, panic attacks, HTN Cardiac Medications: Vitamin D3, albuterol Allergies: Lisinopril, niacin, iodinated contrast media Cardiac Risk Factors: HTN, HLD, pre diabetes, Previous Cardiac Procedures: None Pretest Chest Pain Characteristics: None Exercise History: Indeterminate Physical Disabilities: Generalized weakness Lung Sounds: Clear to auscultation Heart Sounds: Tachycardia Stress Test Details Test: Pharmacologic stress testing performed using 0.4 mg of regadenoson per 5 mL given IV over 10 s econds. Reason for pharmacologic stress test: Patient unable to use treadmill. Nuclear Acquisition: Rest Tc-99m/Stress Tc-99m 1 day Rest Isotope: Tc-99m Sestamibi. Dose: 10.0 Date: 05/01/2023 Injection Time: 1105 Stress Isotope: Tc-99m Sestamibi. Dose: 30.0 Date: 05/01/2023 Injection Time: 1348 HR Resting HR Supine: 94 bpm Max Heart Rate (APMHR): 161.121693 bpm Target HR (85% APMHR): 136.052388 bpm Max HR Achieved: 129 bpm % of APMHR: 80.12 Recovery HR: 121 bpm BP Resting BP Supine: 110/68 mmHg Max BP: 114/72 mmHg Recovery BP: 102/64 mmHg ECG Resting ECG: Sinus Tachycardia Ectopy: None Stress ECG: Sinus Tachycardia ST Change: Nondiagnostic low heart rate Arrhythmia: None Recovery ECG: Sinus Tachycardia Recovery ST Change: Nondiagnostic low heart rate Recovery Arrhythmia: None Clinical Stress Symptoms: 6/10 chest and neck pain Angina Score: Non-Limiting Rate Pressure Product: [id number] Stress ECG Conclusion 1. Electrocardiogram was within normal limits 2. Patient underwent testing using pharmacologic stress with regadenoson 3. Peak heart rate achieved was 80% of predicted for age 4. Electrocardiographic portion of the test was nondiagnostic 5. See MPI report Stress Test Summary STAGE HR BP SpO2 Symptoms NOTES Supine 94 110/68 95 1 min post Lexiscan injection 129 106/62 95 6/10 chest and neck pain 3 min post Lexiscan injection 126 114/72 94 Dizziness. 6 min post Lexiscan injection 121 102/64 Chest and neck pain down to 2/10 Patient refused treadmill test stating he felt he would be unbale to do this so lexiscan was used. Amor knapp left ambulatory in no apparent distress and stated symptoms were almost resolved. MPI Conclusion Myocardial perfusion is normal. There is no ischemia or evidence of prior infarction Ejection fraction is 67% with normal wall motion Radiologist Interpretation Radiologist agrees with Rubber Flap Tuber Machine Operator's Interpretation. Radiologist Interpretation by: Soren Fofana MD Interpretation Date/Time: 05/03/2023 10:32:00
[2023-05-01] MEDS: Regadenoson 0.4 MG/5 ML SYR IVP (12:59)
== END 2023-05-01 00:55 ==
LOC: DI 00:35
PROVIDERS: PCP Nurse Practitioner; Visit Provider Student in an Organized Health Care Education/Training Program
DX: I25.10 Atherosclerotic heart disease of native coronary artery without angina pectoris (principal)
CPT/HCPCS: 78452; 93016; 93018; 93017; J2785

== ENCOUNTER 2023-07-05 14:55 | Inpatient (IN) | payer MEDICARE, SELFPAY ==
[2023-07-05] VITALS (50 sets, daily range): BP systolic 117–185; BP diastolic 77–161; PULSE 89–147; RESP 13–28; TEMP 36.3–37.2; O2SAT 96–98
--- NOTE | 2023-07-05 15:00 | RT.EKG_ITS ---
APPROVED REPORT Exam: Resting ECG Reason for Exam: tachycardia, hypertension Patient Location: E HR:120 bpm ECG Measurements Heart Rate 120 AXIS CO 157 P 38 QRSd 85 QRS -7 QT 299 T 95 QTc 423 Conclusion Sinus tachycardia...rate> [address]. [address] segment or T wave abnormalities to suggest occlusive ND
[2023-07-05 15:33] LABS: Abs Immature Grans 0.04 10^3/uL (0.0-0.06); Absolute Basophil Count 0.04 10^3/uL (0.0-0.2); Absolute Lymphocyte Count 0.85 10^3/uL (1.2-3.4); Absolute Monocyte Count 0.65 10^3/uL (0.1-0.8); Absolute Neutrophil Count 5.71 10^3/uL (1.2-6.7); Basophils % 0.5; HCT 50.1 % (40.0-50.0); Immature Grans % 0.5; Lymphocytes % 11.7; MCH 29.3 pg (27.0-33.0); MCHC 31.9 % (32.0-36.0); MCV 92 fL (80-95); MPV 10.4 fL (8.0-11.0); Monocytes % 8.9; Neutrophils % 78.4; Platelet Count 154 10^3/uL (130-400); RBC 5.46 10^6/uL (4.36-5.78); RDW 14.4 % (11.8-14.1); RDW-SD 48.3 fL; WBC 7.29 10^3/uL (4.4-10.8)
[2023-07-05 15:34] LABS: Lactate 3.7 mmol/L (0.6-1.4)
[2023-07-05] MEDS: diazePAM 10 MG/2 ML SYR 5 MG IVP (15:35)
[2023-07-05] MEDS: THIAMINE 100 MG in Normal Saline 100 ML 200 MG IVPB (15:35)
[2023-07-05] MEDS: Normal Saline 1,000 ML 1000 ML IV ×2 (15:36→17:38)
[2023-07-05] MEDS: Ondansetron 4 MG/2 ML VIAL IVP (15:40)
[2023-07-05 15:47] LABS: PTT Activated 25.4 sec (21.5-31.9); Prothrombin Time 9.9 sec (9.3-11.0)
[2023-07-05 15:51] LABS: Creatine Kinase 105 U/L (39-308)
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
[2023-07-05] MEDS: diazePAM 10 MG/2 ML SYR IVP (15:52)
[2023-07-05 16:00] LABS: ALT 88 U/L (16-63); AST 132 U/L (15-37); Albumin 4.7 g/dL (3.4-5.0); Alkaline Phosphatase 120 U/L (46-116); BUN 9 mg/dL (7-18); Bilirubin, Total 1.5 mg/dL (0.2-1.0); CREATININE 1.2 mg/dL (0.70-1.30); Calcium 10.2 mg/dL (8.5-10.1); Chloride 93 mmol/L (98-107); ETHANOL BLOOD 3.4 mg/dL (<10); Estimated GFR 69.66 (mL/min/1.73m2); Glucose 127 mg/dL (74-106); Magnesium 1.6 mg/dL (1.8-2.4); NT-proBNP 103 pg/mL (<300); Potassium 4.7 mmol/L (3.5-5.1); Sodium 132 mmol/L (136-145); Total Protein 9.8 g/dL (6.4-8.2); Troponin I < 50 ng/L (<or=60)
--- NOTE | 2023-07-05 16:15 | DI.CT_ITS ---
Exam(s) CT HEAD WO EXAM: CT HEAD WO CLINICAL HISTORY: possible new onset seizures. TECHNIQUE: Imaging Protocol: Axial computed tomography images with coronal and sagittal reformatted images were created and reviewed COMPARISON: CT CT HEAD WO from 10/29/2022 FINDINGS: Ventricles and Extra axial spaces: Normal in size and morphology for the patient's age. Hemorrhage: None. Cerebral parenchyma: No evidence of acute infarct or mass. Midline shift: None. Brainstem/Cerebellum: Normal. Calvarium: Normal. Visualized Paranasal sinuses/Mastoids: Mild ethmoid sinus mucosal thickening. Tiny echoes retention cyst left maxillary sinus. Soft Tissues: Unremarkable. IMPRESSION: No acute intracranial process. RADIATION DOSE DELIVERED: 738.71mGy.cm Total DLP DATA REPOSITORY: All CT scans at this facility are submitted to the National Radiology Data Registry (NRDR) Dose Index Registry (DIR) with the [employer] ([employer]). RADIATION OPTIMIZATION: All CT scans at this facility use at least one of these dose optimization te chniques: automated exposure control; mA and/or kV adjustment per patient size (includes targeted exa ms where dose is matched to clinical indication); or iterative reconstruction.
[2023-07-05 16:24] LABS: BE (Venous) -12 mmol/L (-2-3); HCO3 (Venous) 15 mmol/L (23-28); O2 Sat (Venous) 41 %; TCO2 (Venous) 14 mmol/L (24-29); TSH (W/Ref FT4) 3.72 uIU/mL (0.36-3.74); pCO2 (Venous) 37 mmHg (41-51); pH (Venous) 7.22 (7.31-7.41); pO2 (Venous) 28 mmHg
[2023-07-05] MEDS: cloNIDine 0.1 MG TAB 0.2 MG PO (16:35)
[2023-07-05 17:03] LABS: Salicylate 4.9 mg/dL (<2.8)
[2023-07-05 19:37] LABS: Lactate 1.1 mmol/L (0.6-1.4)
[2023-07-05 19:38] LABS: BE (Venous) -9 mmol/L (-2-3); HCO3 (Venous) 17 mmol/L (23-28); O2 Sat (Venous) 79 %; TCO2 (Venous) 16 mmol/L (24-29); pCO2 (Venous) 35 mmHg (41-51); pO2 (Venous) 46 mmHg
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
--- NOTE | 2023-07-05 21:24 | W.EDPROG ---
Date of service: 07/05/23 Time of Service: 18:00 Discharge Plan Disposition Patient Disposition: Admit to [facility] Condition: Serious Discharge Details Clinical Impression: Alcohol withdrawal, Tachycardia, Metabolic acidosis, Lactic acidosis, Hypertension Primary Care Provider: Maggy Tello ED Provider: Francisca Lin Home Meds and New Rx's Prescriptions: No Action amlodipine 5 mg tablet 5 mg PO DAILY Qty: 90 0RF duloxetine 60 mg capsule,delayed release(DR/EC) 60 mg PO DAILY Qty: 90 0RF ibuprofen 800 mg tablet 800 mg PO Q8H PRN (Reason: pain) Qty: 270 3RF cholecalciferol (vitamin D3) 1,250 mcg (50,000 unit) capsule 1,250 mcg PO QWEEK Qty: 12 3RF albuterol sulfate 90 mcg/actuation HFA aerosol inhaler 2 puff inhalation Q6H PRN (Reason: shortness of breath or wheezing) Qty: 8.5 6RF Stiolto Respimat 2.5-2.5 mcg/actuation mist 2 puff inhalation DAILY Qty: 4 12RF
--- NOTE | 2023-07-05 21:45 | NUR.NOTE ---
PT tried to give a urine sample was unable . ED MD notified. Nursing Note:
[2023-07-05 22:01] LABS: Source Nasopharynx
[2023-07-05 22:33] LABS: COVID-19 PCR Negative (Negative)
[2023-07-05 22:57] LABS: Bilirubin Moderate (Negative); Blood Trace-intact (Negative); Clarity Clear (Clear); Glucose Negative (Negative); Ketones 80 mg/dL (Negative); Leukocyte Esterase Negative (Negative); Nitrite Negative (Negative); Specific Gravity >= 1.030 (1.005-1.025)
[2023-07-05 23:04] LABS: Bacteria Negative HPF (Negative); Crystals Negative HPF (Negative); Epithelial Cells Rare HPF (Negative); Mucus Heavy (Negative); WBC 0-2 HPF (0-5)
[2023-07-05 23:05] LABS: C & S Indicated? No; Casts 0-2 Hyaline LPF (Negative)
[2023-07-05 23:06] LABS: *AMPHETAMINES SCREEN URINE Negative (Negative); *BARBITURATES SCREEN URINE Negative (Negative); *BENZODIAZEPINES SCREEN URINE Negative (Negative); Cannabinoids THC Negative (Negative); Cocaine Screen,Urine Negative (Negative); METHADONE URINE SCREEN Negative (Negative); OPIATES URINE SCREEN Negative (Negative); Tricyclic Antidepressants Negative (Negative)
[2023-07-05] MEDS: Acetaminophen 325 MG TAB PO (23:44)
[2023-07-05] MEDS: MAGNESIUM SULFATE 2 GM/50 ML BAG IVPB (23:44)
[2023-07-06] VITALS (65 sets, daily range): BP systolic 98–143; BP diastolic 63–99; PULSE 72–149; RESP 15–27; TEMP 36.5–37.4; O2SAT 90–99
--- NOTE | 2023-07-06 | DI.CT_ITS ---
Exam(s) CT ABDOMEN PELVIS WO EXAM: CT ABDOMEN PELVIS WO CLINICAL HISTORY: abdominal pain, hematuria. TECHNIQUE: Imaging Protocol: Axial computed tomography images with coronal and sagittal reformatted images were created and reviewed CONTRAST MATERIAL: Intravenous: none Oral: None COMPARISON: CT CT CHEST/ABD/PEL WO from 09/21/2022 CT,NM,TMT NM MPI REST STRESS GRP from 05/01/2023 FINDINGS: VISUALIZED LUNG BASES: No nodules nor pleural effusions evident. Large hiatal hernia again noted. ABDOMEN: There is no ascites. LIVER: Liver is again noted be hypodense implying steatosis. There no discrete focal hepatic lesions identified. GALLBLADDER/BILIARY: No obvious gallstones nor gallbladder wall edema. CBD is not dilated. PANCREAS: No evidence of pancreatic mass nor dilatation of the pancreatic duct. SPLEEN: Spleen is not enlarged. No obvious intrasplenic lesions. ADRENALS: There are no significant adrenal masses. KIDNEYS:No cysts evident. No solid renal masses. No calculi nor hydronephrosis. . ABDOMINAL AORTA: Calcified but not enlarged. Iliac arteries not enlarged. LYMPH NODES: There is no retroperitoneal nor paraaortic adenopathy. ABDOMINAL WALL: No evidence of significant anterior abdominal wall nor inguinal hernia. GI: There is no evidence of bowel obstruction, free air, nor abscess. PELVIS: LYMPH NODES: There is no intrapelvic nor inguinal adenopathy. GI: No evidence of appendicitis.Redundant sigmoid with few diverticuli but no evidence of acute diver ticulitis. URINARY BLADDER: No calculi nor obvious masses evident REPRODUCTIVE: Prostate size upper normal. Seminal vesicles unremarkable. No obturator adenopathy. OSSEOUS: No significant osseous lesions. Previously present hematoma over the right flank seen on CT scan 09/21/2022 has resolved. IMPRESSION: 1. Previously present right flank hematoma has resolved (09/21/2022). 2. No significant acute findings in the abdomen pelvis on this noncontrast study. 3. Hepatic steatosis again noted. Liver size slightly prominent. No lesions. No splenomegaly. No ascites. RADIATION DOSE DELIVERED: 736.93mGy.cm Total DLP DATA REPOSITORY: All CT scans at this facility are submitted to the National Radiology Data Registry (NRDR) Dose Index Registry (DIR) with the [employer] ([employer]). RADIATION OPTIMIZATION: All CT scans at this facility use at least one of these dose optimization te chniques: automated exposure control; mA and/or kV adjustment per patient size (includes targeted exa ms where dose is matched to clinical indication); or iterative reconstruction.
--- NOTE | 2023-07-06 | DI.US_ITS ---
Exam(s) US RENAL EXAM: US RENAL CLINICAL HISTORY: hematuria TECHNIQUE: Ultrasound of both kidneys performed using standard protocol. COMPARISON: CT CT CHEST/ABD/PEL WO from 09/21/2022 US US AXILLA LT from 03/22/2023 FINDINGS: RIGHT KIDNEY: Measures 10.5 cm in length. No cysts evident. Normal cortical thickness and corticomedullary differen tiation .No solid masses No intrarenal calculi nor hydronephrosis. LEFT KIDNEY: Measures 11.0 cm in length. No cysts evident. Normal cortical thickness and corticomedullary differe ntiaion. No solids masses. No intrarenal calculi nor hydonephrosis. URINARY BLADDER: Prevoid volume is 329 cc Postvoid volume is 0 cc No evidence of bladder mass nor diverticuli. Ureterovesical jets: Both not identified on today's study. Prostate: Measures 3.0 x 4.1 by 3.1 cm, for total volume 20.8 ml. IMPRESSION: 1. No significant ultrasound findings in the kidneys. No hydronephrosis. 2. No obvious mass in the urinary bladder. However, the ureterovesical jets were not identified. 3. Mildly enlarged prostate gland DATA REPOSITORY:
--- NOTE | 2023-07-06 | DI.US_ITS ---
Exam(s) US ABDOMEN LIMITED EXAM: US ABDOMEN LIMITED CLINICAL HISTORY: transaminitis TECHNIQUE: Ultrasound abdomen performed using standard protocol. COMPARISON: CT CT CHEST/ABD/PEL WO from 09/21/2022 US US RENAL from 07/06/2023 FINDINGS: There is no ascites evident. LIVER: Liver is hyperechoic indicating steatosis. There no discrete focal hepatic lesions evident GALLBLADDER/BILIARY: There are no gallstones. No gallbladder wall edema nor pericholecystic fluid. The common hepatic duct isnot dilated, measuring 5-6mm at the level of sera hepatis. PANCREAS: There is no evidence of pancreatic mass nor dilatation of the pancreatic duct. RIGHT KIDNEY:See separate renal ultrasound dictation today IMPRESSION: 1. No evidence of cholelithiasis nor dilatation of the biliary tree. 2. Hepatic steatosis. 3. See separate kidney ultrasound dictation. DATA REPOSITORY:
[2023-07-06] MEDS: Normal Saline 1,000 ML 150 ML IV ×3 (02:07→13:27)
[2023-07-06] MEDS: Acetaminophen 325 MG TAB PO ×3 (06:16→18:21)
[2023-07-06 07:06] LABS: HGB 13.2 g/dL (13.5-17.5); MCH 30.1 pg (27.0-33.0); MCV 91 fL (80-95); MPV 11.3 fL (8.0-11.0); Platelet Count 119 10^3/uL (130-400); RBC 4.38 10^6/uL (4.36-5.78); RDW 14.3 % (11.8-14.1); WBC 4.82 10^3/uL (4.4-10.8)
[2023-07-06 07:19] LABS: Prothrombin Time 9.7 sec (9.3-11.0)
[2023-07-06 07:21] LABS: ALT 64 U/L (16-63); AST 93 U/L (15-37); Albumin 3.5 g/dL (3.4-5.0); Alkaline Phosphatase 86 U/L (46-116); Anion Gap 12.3 mmol/L (3-11); BUN 14 mg/dL (7-18); Bilirubin, Total 1.2 mg/dL (0.2-1.0); CO2 22.7 mmol/L (21.0-32.0); CREATININE 0.8 mg/dL (0.70-1.30); Chloride 98 mmol/L (98-107); Estimated GFR 101.95 (mL/min/1.73m2); Glucose 87 mg/dL (74-106); Sodium 133 mmol/L (136-145); Total Protein 7.3 g/dL (6.4-8.2)
[2023-07-06 07:38] LABS: Lactate 0.9 mmol/L (0.6-1.4)
[2023-07-06 08:11] LABS: Procalcitonin < 0.1 ng/mL
[2023-07-06] MEDS: DULoxetine 30 MG CAP 60 MG PO (08:27)
[2023-07-06] MEDS: amLODIPine 5 MG TAB PO (08:27)
[2023-07-06] MEDS: Tiotropium/Olodaterol 10 PUFF INHALER 2 PUFF IH (08:33)
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
[2023-07-06] MEDS: LORazepam 2 MG/ML VIAL IVP (12:18)
[2023-07-06] MEDS: Normal Saline Flush 10 ML SYR IVP ×3 (12:38→23:14)
--- NOTE | 2023-07-06 13:00 | RT.EKG_ITS ---
APPROVED REPORT Exam: Resting ECG Reason for Exam: episode of SVT Patient Location: I HR:108 bpm ECG Measurements Heart Rate 108 AXIS MN 153 P 20 QRSd 88 QRS -18 QT 331 T 61 QTc 444 Conclusion Sinus tachycardia...rate> 99 Borderline left axis deviation...QRS axis (-15,-29) Borderline low voltage, extremity leads...all extremity leads <0.6mV Anteroseptal infarct, old...Q >40mS, V1-V2 Baseline wander in lead(s) V1,V3
[2023-07-06] MEDS: diazePAM 10 MG/2 ML SYR IVP (13:09)
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
--- NOTE | 2023-07-06 14:00 | NUR.NOTE ---
Nursing Note: Verbal report given to ICU Nurse Vera, Patient transfer via hospital bed, to ICU Rm #[id number]. Patient opened both eyes on physical stimuli. Transfer report completed.
[2023-07-06 14:34] LABS: BE (Venous) -2 mmol/L (-2-3); HCO3 (Venous) 23 mmol/L (23-28); pCO2 (Venous) 38 mmHg (41-51); pH (Venous) 7.39 (7.31-7.41); pO2 (Venous) 122 mmHg
[2023-07-06 14:35] LABS: O2 Sat (Venous) > 99 %
[2023-07-06 14:39] LABS: Lab Add On Test DONE
[2023-07-06 14:56] LABS: Troponin I < 50 ng/L (<or=60)
[2023-07-06] MEDS: Lactated Ringers 1,000 ML 125 ML IV (15:23)
[2023-07-06] MEDS: Pantoprazole 40 MG VIAL IVP (15:39)
[2023-07-06] MEDS: THIAMINE 100 MG in Normal Saline 100 ML 200 MG IVPB (16:18)
[2023-07-06] MEDS: LORazepam 1 MG TAB PO/SL (19:36)
[2023-07-06] MEDS: PHENobarbital 130 MG/ML VIAL IVP (21:50)
[2023-07-07] VITALS (124 sets, daily range): BP systolic 75–149; BP diastolic 42–98; PULSE 65–167; RESP 10–29; TEMP 36–36.8; O2SAT 87–98
[2023-07-07 00:09] LABS: Bilirubin Small (Negative); Blood Negative (Negative); Clarity Clear (Clear); Glucose Negative (Negative); Ketones 15 mg/dL (Negative); Leukocyte Esterase Negative (Negative); Nitrite Negative (Negative); Specific Gravity 1.025 (1.005-1.025); Urobilinogen >=8.0 mg/dL (Up to 0.2)
[2023-07-07] MEDS: Lactated Ringers 1,000 ML 125 ML IV (00:09)
[2023-07-07] MEDS: PHENobarbital 130 MG/ML VIAL IVP ×7 (02:00→21:04)
[2023-07-07 06:36] LABS: Abs Immature Grans 0.01 10^3/uL (0.0-0.06); Absolute Basophil Count 0.04 10^3/uL (0.0-0.2); Absolute Eosinophil Count 0.09 10^3/uL (0.0-0.7); Absolute Lymphocyte Count 1.14 10^3/uL (1.2-3.4); Absolute Monocyte Count 0.41 10^3/uL (0.1-0.8); Eosinophils % 2.3; HCT 33.7 % (40.0-50.0); HGB 11.4 g/dL (13.5-17.5); Immature Grans % 0.3; Lymphocytes % 28.5; MCH 30.6 pg (27.0-33.0); MCHC 33.8 % (32.0-36.0); MCV 90 fL (80-95); MPV 11.5 fL (8.0-11.0); Monocytes % 10.3; Neutrophils % 57.6; Platelet Count 110 10^3/uL (130-400); RBC 3.73 10^6/uL (4.36-5.78); RDW 13.9 % (11.8-14.1)
[2023-07-07 07:07] LABS: ALT 47 U/L (16-63); AST 76 U/L (15-37); Albumin 2.8 g/dL (3.4-5.0); Alkaline Phosphatase 71 U/L (46-116); Anion Gap 9.3 mmol/L (3-11); BUN 9 mg/dL (7-18); Bilirubin, Direct 0.4 mg/dL (0.0-0.2); Bilirubin, Total 0.9 mg/dL (0.2-1.0); CO2 25.7 mmol/L (21.0-32.0); CREATININE 0.5 mg/dL (0.70-1.30); Calcium 8.7 mg/dL (8.5-10.1); Chloride 98 mmol/L (98-107); Estimated GFR 117.49 (mL/min/1.73m2); Glucose 106 mg/dL (74-106); Magnesium 1.5 mg/dL (1.8-2.4); Potassium 3.1 mmol/L (3.5-5.1); Sodium 133 mmol/L (136-145); Total Protein 6.1 g/dL (6.4-8.2)
--- NOTE | 2023-07-07 07:13 | NUR.NOTE ---
Vital signs are stable. Patient is sleeping.Nursing Note:
[2023-07-07] MEDS: Tiotropium/Olodaterol 10 PUFF INHALER 2 PUFF IH (08:09)
--- NOTE | 2023-07-07 08:11 | PT.INNT ---
PT Notes Visit Reasons: Alcohol Withdrawal PT orders received prior to transfer to ICU. Hold PT due to decline in medical status. Will be happy to consult with new orders when medically appropriate.
--- NOTE | 2023-07-07 08:13 | OT.INNT ---
Occupational Therapy Notes 07/07/23 Pt had a decline in medical status and was transferred to the ICU. If MD feels that pt is still appropriate for services, OT will need a new referral. Shiloh Em, OTR/L
[2023-07-07] MEDS: Pantoprazole 40 MG VIAL IVP ×2 (08:47→20:12)
[2023-07-07] MEDS: DULoxetine 30 MG CAP 60 MG PO (08:52)
[2023-07-07] MEDS: amLODIPine 5 MG TAB PO (08:52)
[2023-07-07] MEDS: Multivitamin TAB 1 TAB PO (08:53)
[2023-07-07] MEDS: Folic Acid 1 MG TAB PO (08:53)
[2023-07-07] MEDS: Thiamine 100 MG TAB PO (08:53)
[2023-07-07] MEDS: MAGNESIUM SULFATE 4 GM/100 ML BAG IVPB (08:59)
--- NOTE | 2023-07-07 09:02 | W.NUTRFU ---
Date of service: 07/07/23 Time of Service: 09:02 Nutrition Note NOTE: 58yo male admitted for alcohol withdrawl with PMH significant for etoh and tobacco use, hepatic steatosis, alcoholic hepatitis, metabolic acidosis, postprandial pain in LUQ, COPD, HTN, PTSD. His last two vitamin D labs show deficiency as well. Provider documentation notes lack of intake reported over the week and current poor appetite. Pt diet order has no restrictions while admitted. Noted wt loss of 4.9kg over the last 6 months, which roughly corresponds to 9.5% wt loss of usual body weight. Will trial ensure clear on lunch trays and follow up with pt on toleranc, and monitor for oral po intake to see if he is getting close to his estimated nutrition needs, which are: 1813kcals ([id number]), 72.9g protein (1g per kg in light of wt loss) and 1813cc fluid (1cc per required kcal) Time Spent in Nutritional Counseling and Treatment: 0
[2023-07-07] MEDS: Potassium Chloride 20 MEQ TABCR 40 MEQ PO (09:21)
[2023-07-07] MEDS: POTASSIUM CHLORIDE 20 MEQ/100 ML BAG 50 MEQ IVPB (09:36)
[2023-07-07] MEDS: Normal Saline Flush 10 ML SYR IVP ×7 (09:39→21:04)
--- NOTE | 2023-07-07 09:52 | PGE_ITS ---
Date of Service Date of service: 07/07/23 Time of Service: 09:52 Assessment and Plan Assessment and plan (1) Alcohol withdrawal syndrome without complication: Start date: 07/05/23 Status: Acute Assessment and plan: Continue monitoring in the ICU on the phenobarbital protocol. Supplement MVI, thiamine, folate. Check vitamins. MOnitor lytes. (2) Anemia: Status: Chronic Assessment and plan: Acute on chronic. ?due to blood loss vs dilutional. Additionally, checking B12/folate. See below - checking H/H at noon, continue protonix, tolerating a diet. (3) Metabolic acidosis: Start date: 07/05/23 Status: Resolved Assessment and plan: Due to alcoholic and starvation ketoacidosis. D/c IVF. (4) Generalized postprandial abdominal pain: Status: Acute Assessment and plan: Tolerating a diet. CT negative. COntinue PPI. Trend H/H. Await stool for hemoccult. (5) Hypokalemia: Status: Acute Assessment and plan: Replete and replete magnesium. (6) Hypomagnesemia: Start date: 07/05/23 Status: Acute Assessment and plan: Replete; also replete K. (7) Hypertension: Assessment and plan: Continue amlodipine. (8) Alcoholic hepatitis without ascites: Status: Chronic Assessment and plan: Maddrey's score is -4.8 - good prognosis. US renal with hepatic steatosis. There is no PT/INR elevation. (9) Hematuria: Start date: 07/05/23 Status: Resolved Assessment and plan: US and noncontrast CT are negative. UA on repeat was negative. Consider an outpatient urology c/s. (10) COPD (chronic obstructive pulmonary disease): Status: Chronic Assessment and plan: Not in acute exacerbation. Has prn bronchdilators. (11) GERD (gastroesophageal reflux disease): Status: Chronic Assessment and plan: Continue PPI. (12) PTSD (post-traumatic stress disorder): Status: Chronic Assessment and plan: Continue cymbalta. Outpatient follow up with mental health. (13) DVT prophylaxis: Status: Acute Assessment and plan: SC enoxaparin d/c'ed in light of reports of blood in stool and urine. SCDs. (14) Discharge planning issues: Status: Acute Assessment and plan: Full code Keep in the ICU. Total Critical Care Time 35 minutes. Subjective Subjective Interval history since last seen: Mr Morales states he has not had abdominal pain since eating. He had not had a BM yet. No active bleeding recorded. Has a headache. Denies dizziness, CP, SOB, nausea. Did require conversion to phenobarbital overnight for a CIWA score of 18. Latest CIWA score is 10. We discussed how his symptoms are consistent with alcohol withdrawal. Exam Narrative Exam Narrative: General: Tremulous middle-aged male who is sitting up in a chair, A&Ox3, appears mildly anxious HEENT: EOMI, MMM Heart: RRR, mildly tachycardic 110s Lungs: CTAB Abdomen: soft, nontender, nondistended. Rotund. Extremities: no edema BLEs Objective Last Vital Signs Temp 36.2 C L 07/07/23 07:12 Pulse 83 07/07/23 07:12 Resp 16 07/07/23 07:12 BP 111/91 H 07/07/23 07:12 Pulse Ox 93 07/07/23 07:12 Laboratory Results - last 24 hr 07/06/23 07/06/23 07/06/23 14:25 14:25 14:25 WBC RBC Hgb Hct MCV MCH MCHC RDW Plt Count MPV Immature Gran % Neutrophils % Lymphocytes % Monocytes % Eosinophils % Basophils % Nucleated RBC % Absolute Neutrophils Absolute Lymphocytes Absolute Monocytes Absolute Eosinophils Absolute Basophils VBG pH 7.39 VBG pCO2 38 L VBG pO2 122 VBG HCO3 23 VBG Total CO2 VBG O2 Saturation > 99 VBG Base Excess -2 Sodium Potassium Chloride Carbon Dioxide Anion Gap BUN Creatinine Est GFR (CKD-EPI 2020) Glucose Calcium Magnesium Total Bilirubin Conjugated Bilirubin AST ALT Alkaline Phosphatase Troponin I < 50 Total Protein Albumin Urine Color Urine Clarity Urine pH Ur Specific [place] Urine Protein Urine Ketones Urine Blood Urine Nitrite Urine Bilirubin Urine Urobilinogen Ur Leukocyte Esterase Urine Glucose Add-On Test Request DONE 07/06/23 07/07/23 07/07/23 23:33 05:28 05:28 WBC 4.00 L RBC 3.73 L Hgb 11.4 L Hct 33.7 L MCV 90 MCH 30.6 MCHC 33.8 RDW 13.9 Plt Count 110 L MPV 11.5 H Immature Gran % 0.3 Neutrophils % 57.6 Lymphocytes % 28.5 Monocytes % 10.3 Eosinophils % 2.3 Basophils % 1.0 Nucleated RBC % 0.0 Absolute Neutrophils 2.30 Absolute Lymphocytes 1.14 L Absolute Monocytes 0.41 Absolute Eosinophils 0.09 Absolute Basophils 0.04 VBG pH VBG pCO2 VBG pO2 VBG HCO3 VBG Total CO2 VBG O2 Saturation VBG Base Excess Sodium 133 L Potassium 3.1 L Chloride 98 Carbon Dioxide 25.7 Anion Gap 9.3 BUN 9 Creatinine 0.5 L Est GFR (CKD-EPI 2020) 117.49 Glucose 106 Calcium 8.7 Magnesium 1.5 L Total Bilirubin 0.9 Conjugated Bilirubin 0.4 H AST 76 H ALT 47 Alkaline Phosphatase 71 Troponin I Total Protein 6.1 L Albumin 2.8 L Urine Color Yellow Urine Clarity Clear Urine pH 6.0 Ur Specific [place] 1.025 Urine Protein Negative Urine Ketones 15 H Urine Blood Negative Urine Nitrite Negative Urine Bilirubin Small H Urine Urobilinogen >=8.0 H Ur Leukocyte Esterase Negative Urine Glucose Negative Add-On Test Request PAWSS Have you Been Recently Intoxicated or Drunk Within the Last 30 days?: Yes Have you Ever Experienced Previous Episodes of Alcohol Withdrawal?: No Have you ever Experienced Withdrawal Seizures?: No Have you ever Experienced Delirium Tremens(DT)s?: No Have you ever undergone Alcohol Rehabilitation Treatment (i.e, inpt ot outpatient treatment programs)?: No Have you ever Experienced Blackouts?: No Have you ever Combined Alcohol with other Downers within the last 90 days?: No Have you ever Combined Alcohol with any other Substance of Abuse during the last 90 days?: No Result: 1 Time Spent with Patient Time Spent with Patient: 35-49 minutes Time was spent: preparing to see the patient(eg.review tests), obtaining and/or reviewing separately otained hiistory, ordering medications,tests, procedures, referring, communicating with other health customer care manager, indepentently interpreting results, counseling the patient and care coordination
[2023-07-07] MEDS: Acetaminophen 325 MG TAB PO (09:57)
--- NOTE | 2023-07-07 09:58 | CMPROGNOTE_ITS ---
Date of service: 07/07/23 Time of Service: 09:58 Care Management Progress Note Progress Note Text Progress Note Text: S/O: Ismael was resting when CM met with him, but woke up easily to talk with CM. He reported that he is very tired today. He stated that he does not feel that he is in alcohol withdrawal, instead he thinks that he is suffering from the effects of contrast dye poisoning, which he reported that he has been dealing with for four and a half years. He declined speaking to a disaster recovery specialist about his alcohol use. CM will continue to follow. A: Ismael is a 58 year old male admitted to [facility] on 07/05/23 for alcohol withdrawal. P: Ismael will likely be discharged home with no services when medically cleared by provider.? He will follow up with his PCP and plan of care as instructed.? He will be transported home by his via private vehicle when ready.? CM will continue to follow.
--- NOTE | 2023-07-07 10:57 | NUR.NOTE ---
Bed alarm is turned on.Nursing Note:
[2023-07-07] MEDS: POTASSIUM CHLORIDE 20 MEQ/100 ML BAG 100 MEQ IVPB (11:30)
--- NOTE | 2023-07-07 11:31 | NUR.NOTE ---
Patient sleeping comfortably in bed.Nursing Note:
[2023-07-07 12:22] LABS: HCT 37.9 % (40.0-50.0); HGB 12.8 g/dL (13.5-17.5)
--- NOTE | 2023-07-07 13:11 | NUR.NOTE ---
Patient is forgetful that he has a lindsey catheter and hence does not need a urinal to void. Patient given 130mg of Phenobarbital of address CIWA scale of 9.Nursing Note:
--- NOTE | 2023-07-07 13:55 | PHA.REVIEW2 ---
Pharmacy Admission Review Admission Clinical Review Admission Pharmacy Review: (Updated 07/07/23 @ 10:04 by [place] MD) Hypokalemia (Acute) Discharge planning issues (Acute) DVT prophylaxis (Acute) Generalized postprandial abdominal pain (Acute) Hypomagnesemia (Acute) Alcohol withdrawal syndrome without complication (Acute) lisinopril Allergy (Intermediate, Verified 07/05/23 14:32) unknown niacin Allergy (Mild, Verified 07/05/23 14:32) rash Iodinated Contrast Media [Iodinated Contrast- Oral and IV Dye] Allergy (Unknown, Verified 07/05/23 14:32) per pt swelling tongue, emesis, skin flaking off Resuscitation Status Full Code Height 5 ft 7.5 in Weight 72.9 kg Pharmacy Admission Review Renal Dosing Renal Dosing: BUN 9 mg/dL (7-18) 07/07/23 05:28 Creatinine 0.5 mg/dL (0.70-1.30) L 07/07/23 05:28 Medications needing adjustments: Reviewed (crcl = 102, no adjustments needed) Anticoagulation Anticoagulation: Hgb 12.8 g/dL (13.5-17.5) L 07/07/23 12:16 Hct 37.9 % (40.0-50.0) L 07/07/23 12:16 Plt Count 110 10^3/uL (130-400) L 07/07/23 05:28 INR 1.0 (0.9-1.1) 07/06/23 06:13 Creatinine 0.5 mg/dL (0.70-1.30) L 07/07/23 05:28 DVT Prophylaxis: Reviewed (SCDs - enoxaparin cancelled (blood in stool/urine)) Therapeutic Anticoagulation: N/A Opiate Usage Evaluate Pain Scale/Pains Meds: Reviewed (not on any opiates. methocarbamol, voltaren gel for chronic pain) Relevant Labs Relevant Labs: Sodium 133 mmol/L (136-145) L 07/07/23 05:28 Potassium 3.1 mmol/L (3.5-5.1) L 07/07/23 05:28 Chloride 98 mmol/L (98-107) 07/07/23 05:28 Phosphorus 2.0 mg/dL (2.6-4.7) L 07/06/23 06:13 Magnesium 1.5 mg/dL (1.8-2.4) L 07/07/23 05:28 Electrolytes, C-Reactive P, ESR: Reviewed (K+ now 4.0, on 40mEq PO BID, consider rechecking phosphorous ?repletion) DM Control DM Control: Reviewed (no diabetes diagnosis, A1c = 5.1 % 11/2022) Cardiac Review Cardiac Review: Troponin I < 50 ng/L (<or=60) 07/06/23 14:25 NT-Pro-B Natriuret Pep 103 pg/mL (<300) 07/05/23 15:25 BP, HR, EF%: Reviewed QTc Review QTc: Reviewed (Qtc = 444 07/06/23) List meds needing interventions: n/a IV to PO Switch IV Medications: Reviewed (phenobarb now PO) Home Meds Home Med List reviewed: Reviewed Current Meds Current Medication Order Review: Reviewed Comments: etoh withdrawal, phenobarb protocol. No load, has received 7 x 130 mg IV since 07/06 (last 07/07 @2100), now PO 100 mg prn (last 07/08 @1700). Total dose so far = 1010 mg, soft stop of 1008 mg has been met, hard stop: 1345 mg
--- NOTE | 2023-07-07 14:32 | NUR.NOTE ---
Patient is sleeping comfortably.Nursing Note:
[2023-07-08] VITALS (19 sets, daily range): BP systolic 100–126; BP diastolic 67–89; PULSE 70–121; RESP 13–20; TEMP 36.2–36.6; O2SAT 92–98
[2023-07-08] MEDS: Normal Saline Flush 10 ML SYR IVP ×3 (05:24→17:04)
[2023-07-08 06:40] LABS: Abs Immature Grans 0.03 10^3/uL (0.0-0.06); Absolute Basophil Count 0.04 10^3/uL (0.0-0.2); Absolute Eosinophil Count 0.15 10^3/uL (0.0-0.7); Absolute Lymphocyte Count 1.43 10^3/uL (1.2-3.4); Absolute Monocyte Count 0.46 10^3/uL (0.1-0.8); Absolute Neutrophil Count 3.19 10^3/uL (1.2-6.7); Basophils % 0.8; Eosinophils % 2.8; HCT 36.6 % (40.0-50.0); HGB 12.2 g/dL (13.5-17.5); Immature Grans % 0.6; MCH 29.7 pg (27.0-33.0); MCHC 33.3 % (32.0-36.0); MCV 89 fL (80-95); Monocytes % 8.7; Neutrophils % 60.1; Platelet Count 122 10^3/uL (130-400); RBC 4.11 10^6/uL (4.36-5.78); RDW 13.5 % (11.8-14.1); RDW-SD 44.4 fL
[2023-07-08 07:07] LABS: Iron 57 ug/dL (65-175); Total Iron Binding Capacity 260 ug/dL (250-450); Transferrin Sat 22 % (20-55)
[2023-07-08 07:31] LABS: Anion Gap 7.6 mmol/L (3-11); BUN 9 mg/dL (7-18); CO2 29.4 mmol/L (21.0-32.0); CREATININE 0.6 mg/dL (0.70-1.30); Chloride 96 mmol/L (98-107); Ferritin 244 ng/mL (26-388); Folate 5.9 ng/mL (8.6-20.0); Glucose 106 mg/dL (74-106); Magnesium 1.8 mg/dL (1.8-2.4); Potassium 3.3 mmol/L (3.5-5.1); Sodium 133 mmol/L (136-145); Vitamin B12 648 pg/mL (193-986)
[2023-07-08] MEDS: Tiotropium/Olodaterol 10 PUFF INHALER 2 PUFF IH (08:10)
[2023-07-08] MEDS: Multivitamin TAB 1 TAB PO (08:21)
[2023-07-08] MEDS: amLODIPine 5 MG TAB PO (08:21)
[2023-07-08] MEDS: DULoxetine 30 MG CAP 60 MG PO (08:21)
[2023-07-08] MEDS: Magnesium Gluconate 500 MG TAB PO (08:21)
[2023-07-08] MEDS: Folic Acid 1 MG TAB PO (08:21)
[2023-07-08] MEDS: Thiamine 100 MG TAB PO (08:22)
[2023-07-08] MEDS: Potassium Chloride Liquid 20 MEQ PKT PO ×4 (08:22→19:19)
[2023-07-08] MEDS: Pantoprazole 40 MG VIAL IVP (08:27)
[2023-07-08] MEDS: Polyethylene Glycol 3350 17 GM PACKET PO (08:49)
[2023-07-08] MEDS: Docusate Sodium 100 MG CAP PO (08:49)
--- NOTE | 2023-07-08 08:51 | NUR.NOTE ---
Patient has not had a bowel movement in several days. Patient is given Docusate and Miralax.Nursing Note:
--- NOTE | 2023-07-08 10:54 | PGE_ITS ---
Date of Service Date of service: 07/08/23 Time of Service: 10:54 Assessment and Plan Assessment and plan (1) Alcohol withdrawal syndrome without complication: Status: Acute Assessment and plan: completing phenobarbital treatment, ready for transfer to the floor and if remains stable probable dc home tomorrow; continue folate and thiamine supplementation (2) Anemia: Status: Chronic Assessment and plan: continue PPI and MVS, folate and thiamine supplementation; no evidence for acute bleeding (3) Generalized postprandial abdominal pain: Status: Acute Assessment and plan: continue protonix but change to po (4) Hypokalemia: Status: Acute Assessment and plan: replete and monitor (5) Hypomagnesemia: Status: Acute Assessment and plan: replete and monitor (6) Hypertension: Assessment and plan: Continue amlodipine. (7) Alcoholic hepatitis without ascites: Status: Chronic Assessment and plan: Maddrey's score is -4.8 - good prognosis. US renal with hepatic steatosis. There is no PT/INR elevation. (8) Hematuria: Start date: 07/05/23 Status: Resolved Assessment and plan: US and noncontrast CT are negative. UA on repeat was negative. Consider an outpatient urology c/s. (9) COPD (chronic obstructive pulmonary disease): Status: Chronic Assessment and plan: Not in acute exacerbation. Has prn bronchdilators. (10) GERD (gastroesophageal reflux disease): Status: Chronic Assessment and plan: Continue PPI. (11) PTSD (post-traumatic stress disorder): Status: Chronic Assessment and plan: Continue cymbalta. Outpatient follow up with mental health. I have added Robaxin for his chronic neck/back pain; he could also use voltaren gel (12) DVT prophylaxis: Status: Acute Assessment and plan: SC enoxaparin d/c'ed in light of reports of blood in stool and urine. SCDs. (13) Discharge planning issues: Status: Acute Subjective Subjective Interval history since last seen: Ismael acute alcohol withdrawal has been treated w/ phenobarbital protocol and his CIWA scores have improved (2 to 4). He has had total of 1040 mg of phe nobarbital (his calculated dose of 15 mg/kg IBW is 1005 mg and his 20 mg/kg dose is 1340 mg. He has not had a dose of phenobarbital since 2100 last night. I think he can convert to prn oral dosing up to his limit of 1340 mg total combined iv and po. He can move to med/surg. He still is not convinced that he went through acute alcohol withdrawal and blames his tremors on iv contrast poisoning from 2018. He continues to have chronic neck and back pains for which he was formerly on MS Contin through his former PCP, Tawana Robles. He says that his current PCP will not prescribe him narcotics and he allegedly has been referred to pain clinic here as well as at [facility]. Exam Narrative Exam Narrative: alert and oriented, w/ coherent words, coherent thinking, no hallucinations No tremors Lungs: clear Heart: regular, not tachycardic, no murmur Abdomen: benign skin not diaphoretics Objective Last Vital Signs Temp 36.2 C L 07/08/23 08:00 Pulse 70 07/08/23 08:00 Resp 14 07/08/23 08:00 BP 124/89 07/08/23 08:00 Pulse Ox 97 07/08/23 08:00 Laboratory Results - last 24 hr 07/07/23 07/08/23 07/08/23 12:16 05:28 05:28 WBC RBC Hgb 12.8 L Hct 37.9 L MCV MCH MCHC RDW Plt Count MPV Immature Gran % Neutrophils % Lymphocytes % Monocytes % Eosinophils % Basophils % Nucleated RBC % Absolute Neutrophils Absolute Lymphocytes Absolute Monocytes Absolute Eosinophils Absolute Basophils Sodium 133 L Potassium 3.3 L Chloride 96 L Carbon Dioxide 29.4 Anion Gap 7.6 BUN 9 Creatinine 0.6 L Est GFR (CKD-EPI 2020) 111.20 Glucose 106 Calcium 9.0 Magnesium 1.8 Iron 57 L TIBC 260 Transferrin % Sat 22 Ferritin 244 Vitamin B12 648 Folate 5.9 L 07/08/23 05:28 WBC 5.30 RBC 4.11 L Hgb 12.2 L Hct 36.6 L MCV 89 MCH 29.7 MCHC 33.3 RDW 13.5 Plt Count 122 L MPV 11.0 Immature Gran % 0.6 Neutrophils % 60.1 Lymphocytes % 27.0 Monocytes % 8.7 Eosinophils % 2.8 Basophils % 0.8 Nucleated RBC % 0.0 Absolute Neutrophils 3.19 Absolute Lymphocytes 1.43 Absolute Monocytes 0.46 Absolute Eosinophils 0.15 Absolute Basophils 0.04 Sodium Potassium Chloride Carbon Dioxide Anion Gap BUN Creatinine Est GFR (CKD-EPI 2020) Glucose Calcium Magnesium Iron TIBC Transferrin % Sat Ferritin Vitamin B12 Folate PAWSS Have you Been Recently Intoxicated or Drunk Within the Last 30 days?: Yes Have you Ever Experienced Previous Episodes of Alcohol Withdrawal?: No Have you ever Experienced Withdrawal Seizures?: No Have you ever Experienced Delirium Tremens(DT)s?: No Have you ever undergone Alcohol Rehabilitation Treatment (i.e, inpt ot outpatient treatment programs)?: No Have you ever Experienced Blackouts?: No Have you ever Combined Alcohol with other Downers within the last 90 days?: No Have you ever Combined Alcohol with any other Substance of Abuse during the last 90 days?: No Result: 1 Time Spent with Patient Time Spent with Patient: 35-49 minutes Time was spent: preparing to see the patient(eg.review tests), ordering medications,tests, procedures, referring, communicating with other health wound care center consultant, indepentently interpreting results, counseling the patient and care coordination
[2023-07-08] MEDS: Methocarbamol 750 MG TAB 1500 MG PO ×3 (13:18→19:19)
--- NOTE | 2023-07-08 14:46 | NUR.NOTE ---
No phenobarbital necessary on this 8 hour shift. Patient's vital signs are stable. Patient's condition continues to improve.Nursing Note:
[2023-07-08 16:47] LABS: Potassium 4.5 mmol/L (3.5-5.1)
[2023-07-08] MEDS: Pantoprazole 40 MG TABCR PO (19:19)
[2023-07-08] MEDS: Celecoxib 200 MG CAP PO (19:19)
[2023-07-09 04:11] VITALS: BP 118/86; PULSE 105; RESP 17; TEMP 36.6; O2SAT 96
[2023-07-09 07:20] VITALS: BP 108/76; PULSE 75; RESP 18; TEMP 36.5; O2SAT 97
[2023-07-09 07:45] VITALS: BP 110/79; PULSE 76; RESP 18; TEMP 36; O2SAT 99
[2023-07-09] MEDS: Multivitamin TAB 1 TAB PO (07:49)
[2023-07-09] MEDS: Folic Acid 1 MG TAB PO (07:49)
[2023-07-09] MEDS: amLODIPine 5 MG TAB PO (07:49)
[2023-07-09] MEDS: Pantoprazole 40 MG TABCR PO ×2 (07:49→19:37)
[2023-07-09] MEDS: Thiamine 100 MG TAB PO (07:49)
[2023-07-09] MEDS: Methocarbamol 750 MG TAB 1500 MG PO ×4 (07:49→19:37)
[2023-07-09] MEDS: Celecoxib 200 MG CAP PO ×2 (07:49→19:37)
[2023-07-09] MEDS: DULoxetine 30 MG CAP 60 MG PO (07:50)
[2023-07-09] MEDS: Magnesium Gluconate 500 MG TAB PO (07:50)
[2023-07-09] MEDS: Diclofenac 1% Gel 100 GM TUBE TP ×4 (07:54→19:37)
[2023-07-09] MEDS: Tiotropium/Olodaterol 10 PUFF INHALER 2 PUFF IH (08:00)
[2023-07-09 08:06] LABS: Abs Immature Grans 0.03 10^3/uL (0.0-0.06); Absolute Basophil Count 0.05 10^3/uL (0.0-0.2); Absolute Eosinophil Count 0.18 10^3/uL (0.0-0.7); Absolute Lymphocyte Count 1.48 10^3/uL (1.2-3.4); Absolute Monocyte Count 0.53 10^3/uL (0.1-0.8); Absolute Neutrophil Count 3.18 10^3/uL (1.2-6.7); Basophils % 0.9; Eosinophils % 3.3; HCT 37.6 % (40.0-50.0); HGB 12.8 g/dL (13.5-17.5); Immature Grans % 0.6; Lymphocytes % 27.2; MCH 30.8 pg (27.0-33.0); MCV 90 fL (80-95); MPV 10.7 fL (8.0-11.0); Monocytes % 9.7; Neutrophils % 58.3; Platelet Count 167 10^3/uL (130-400); RBC 4.16 10^6/uL (4.36-5.78); RDW 13.8 % (11.8-14.1); RDW-SD 45.6 fL; WBC 5.45 10^3/uL (4.4-10.8)
[2023-07-09 08:24] LABS: ALT 48 U/L (16-63); AST 61 U/L (15-37); Albumin 3.4 g/dL (3.4-5.0); Alkaline Phosphatase 81 U/L (46-116); Anion Gap 7.4 mmol/L (3-11); BUN 8 mg/dL (7-18); Bilirubin, Total 0.5 mg/dL (0.2-1.0); CO2 30.6 mmol/L (21.0-32.0); CREATININE 0.8 mg/dL (0.70-1.30); Calcium 9.6 mg/dL (8.5-10.1); Chloride 93 mmol/L (98-107); Estimated GFR 101.95 (mL/min/1.73m2); Glucose 132 mg/dL (74-106); Magnesium 1.6 mg/dL (1.8-2.4); Sodium 131 mmol/L (136-145); Total Protein 7.4 g/dL (6.4-8.2)
--- NOTE | 2023-07-09 11:00 | W.PM.PROGNOT ---
Date of Service Date of service: 07/09/23 Time of Service: 11:00 Assessment and Plan Assessment and plan (1) Alcohol withdrawal syndrome without complication: Status: Acute Assessment and plan: patient has completed his phenobarbital treatment, CIWA is 0, will take him of alcohol withdrawal precautions. advance his activity. He needs P.T. evaluation regarding his gait/ambulatory function prior to dc home (2) Anemia: Status: Chronic Assessment and plan: continue PPI and MVS, folate and thiamine supplementation; no evidence for acute bleeding (3) Generalized postprandial abdominal pain: Status: Acute Assessment and plan: improved. now tolerating diet, protonix changed to po (4) Hypokalemia: Status: Acute Assessment and plan: replete and monitor (5) Hypomagnesemia: Status: Acute Assessment and plan: replete and monitor (6) Hypertension: Assessment and plan: Continue amlodipine. (7) Alcoholic hepatitis without ascites: Status: Chronic Assessment and plan: Maddrey's score is -4.8 - good prognosis. US abdomen l with hepatic steatosis. There is no PT/INR elevation. (8) Hematuria: Start date: 07/05/23 Status: Resolved Assessment and plan: US and noncontrast CT are negative. UA on repeat was negative. Consider an outpatient urology c/s. (9) COPD (chronic obstructive pulmonary disease): Status: Chronic Assessment and plan: Not in acute exacerbation. Has prn bronchdilators. (10) GERD (gastroesophageal reflux disease): Status: Chronic Assessment and plan: Continue PPI. (11) PTSD (post-traumatic stress disorder): Status: Chronic Assessment and plan: Continue cymbalta. Outpatient follow up with mental health. I have added Robaxin for his chronic neck/back pain; he could also use voltaren gel (12) Migraine headache: Status: Chronic Assessment and plan: d/t his GERD and alcoholism, NSAID use not a good idea. will just treat w/ Tylenol. will get MRI brain and neuro consult to evaluate his headaches and see if he should be on prophylactic meds (13) DVT prophylaxis: Status: Acute Assessment and plan: SC enoxaparin d/c'ed in light of reports of blood in stool and urine. SCDs. (14) Discharge planning issues: Status: Acute Assessment and plan: anticipate dc in the next 24hr Subjective Subjective Interval history since last seen: Ismael says that he still gets dizzy w/ getting up out of bed. No syncope. He also says that he has been getting headaches associate w/ right eye blurred vision. He says that this has occurred for several months and always associated w/ headaches and this is associated w/ right facial numbness. Exam Narrative Exam Narrative: Ismael is alert and oriented. Patient is no longer scoring on CIWA and has not required any further phenobarbital He still has slight tremor that seems to be intention treemors No focal motor or sensory deficits to light touch Speech is clear, coherent, no confusion and no hallucinations Objective Last Vital Signs Temp 36.0 C L 07/09/23 07:45 Pulse 76 07/09/23 07:45 Resp 18 07/09/23 07:45 BP 110/79 07/09/23 07:45 Pulse Ox 99 07/09/23 07:45 Laboratory Results - last 24 hr 07/08/23 07/09/23 07/09/23 16:15 05:35 07:35 WBC RBC Hgb Hct MCV MCH MCHC RDW Plt Count MPV Immature Gran % Neutrophils % Lymphocytes % Monocytes % Eosinophils % Basophils % Nucleated RBC % Absolute Neutrophils Absolute Lymphocytes Absolute Monocytes Absolute Eosinophils Absolute Basophils Sodium 131 L Potassium 4.5 D 4.0 Chloride 93 L Carbon Dioxide 30.6 Anion Gap 7.4 BUN 8 Creatinine 0.8 Est GFR (CKD-EPI 2020) 101.95 Glucose 132 H Calcium 9.6 Magnesium Cancelled 1.6 L Total Bilirubin 0.5 AST 61 H ALT 48 Alkaline Phosphatase 81 Total Protein 7.4 Albumin 3.4 07/09/23 07:35 WBC 5.45 RBC 4.16 L Hgb 12.8 L Hct 37.6 L MCV 90 MCH 30.8 MCHC 34.0 RDW 13.8 Plt Count 167 MPV 10.7 Immature Gran % 0.6 Neutrophils % 58.3 Lymphocytes % 27.2 Monocytes % 9.7 Eosinophils % 3.3 Basophils % 0.9 Nucleated RBC % 0.0 Absolute Neutrophils 3.18 Absolute Lymphocytes 1.48 Absolute Monocytes 0.53 Absolute Eosinophils 0.18 Absolute Basophils 0.05 Sodium Potassium Chloride Carbon Dioxide Anion Gap BUN Creatinine Est GFR (CKD-EPI 2020) Glucose Calcium Magnesium Total Bilirubin AST ALT Alkaline Phosphatase Total Protein Albumin PAWSS Have you Been Recently Intoxicated or Drunk Within the Last 30 days?: Yes Have you Ever Experienced Previous Episodes of Alcohol Withdrawal?: No Have you ever Experienced Withdrawal Seizures?: No Have you ever Experienced Delirium Tremens(DT)s?: No Have you ever undergone Alcohol Rehabilitation Treatment (i.e, inpt ot outpatient treatment programs)?: No Have you ever Experienced Blackouts?: No Have you ever Combined Alcohol with other Downers within the last 90 days?: No Have you ever Combined Alcohol with any other Substance of Abuse during the last 90 days?: No Result: 1 Time Spent with Patient Time Spent with Patient: 25-34 minutes Time was spent: preparing to see the patient(eg.review tests), ordering medications,tests, procedures, referring, communicating with other health manager managed care, indepentently interpreting results, counseling the patient and care coordination
[2023-07-09] MEDS: Folic Acid 1 MG TAB 5 MG PO (11:18)
[2023-07-09 11:29] VITALS: BP 114/77; BP 93/64; PULSE 119; PULSE 85; RESP 18; TEMP 36.7; O2SAT 99
[2023-07-09 15:19] VITALS: BP 119/78; PULSE 98; RESP 18; TEMP 37; O2SAT 98
[2023-07-09 20:08] VITALS: BP 113/77; PULSE 94; RESP 18; TEMP 36.9; O2SAT 98
[2023-07-10 00:01] VITALS: BP 100/74; PULSE 76; RESP 18; TEMP 36.5; O2SAT 98
[2023-07-10 05:56] VITALS: BP 103/77; PULSE 75; RESP 18; TEMP 36.6; O2SAT 99
[2023-07-10] MEDS: Milk of Magnesia 30 ML CUP PO (07:29)
[2023-07-10] MEDS: Methocarbamol 750 MG TAB 1500 MG PO (07:29)
[2023-07-10] MEDS: Magnesium Gluconate 500 MG TAB PO (07:29)
[2023-07-10] MEDS: Multivitamin TAB 1 TAB PO (07:29)
[2023-07-10] MEDS: Thiamine 100 MG TAB PO (07:29)
[2023-07-10] MEDS: Diclofenac 1% Gel 100 GM TUBE TP (07:29)
[2023-07-10] MEDS: Celecoxib 200 MG CAP PO (07:30)
[2023-07-10] MEDS: Pantoprazole 40 MG TABCR PO (07:30)
[2023-07-10] MEDS: DULoxetine 30 MG CAP 60 MG PO (07:30)
[2023-07-10] MEDS: amLODIPine 5 MG TAB PO (07:31)
[2023-07-10] MEDS: Folic Acid 1 MG TAB 5 MG PO (07:37)
--- NOTE | 2023-07-10 08:00 | DI.MRI_ITS ---
Exam(s) MR BRAIN WO EXAM: MR BRAIN WO CLINICAL HISTORY: migraine headaches w/ visual scotomata TECHNIQUE: Multiplanar multisequence MRI of the brain was performed. COMPARISON: CT CT HEAD WO from 07/05/2023 FINDINGS: VENTRICLES AND EXTRA AXIAL SPACES: Normal in size and morphology for the patient's age. MIDLINE SHIFT: None. CEREBRAL PARENCHYMA: No focus of restricted diffusion to suggest acute infarct. No space-occupying le ashlee identified. Mild atrophy consistent with the patient's age. A few scattered foci of high sign al in the white matter consistent with sequela of chronic microvascular disease. HEMORRHAGE: None. BRAINSTEM/CEREBELLUM: Normal. VISUALIZED PARANASAL SINUSES/MASTOIDS:Clear. Vasculature: Normal flow void. PITUITARY GLAND: Unremarkable. ORBITS: Unremarkable. IMPRESSION: Unremarkable MRI of the brain. DATA REPOSITORY:
[2023-07-10] MEDS: Tiotropium/Olodaterol 10 PUFF INHALER 2 PUFF IH (09:05)
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
[2023-07-10 09:43] LABS: HBs Antibody, Qual Positive (See Note); HBs Antibody, Quant 820.8 mIU/mL (See Note); Hepatitis B Core Antibody Negative (Negative); Hepatitis B surface Ag Negative (Negative); Hepatitis C Ab w Rflx HCV PCR Negative (Negative)
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
[2023-07-10 10:59] VITALS: BP 118/85; PULSE 107; RESP 18; TEMP 36.8; O2SAT 98
--- NOTE | 2023-07-10 15:43 | PDOC.CMDIS ---
Date of service: 07/10/23 Time of Service: 15:43 LACE Index Scoring Tool Questions: Length of Stay (in days): 4 - 6 Was the patient admitted via the E.D.?: Yes Comorbidities: Chronic Pulmonary Disease E.D. Visits: 2 Answers: Total Score: 11 Risk of Readmission: High Risk Care Management Discharge Plan Reason for Hospitalization: Alcohol withdrawal, Metabolic Acidosis, Hematuria, Hypomagnesemia. Discharge Plan: Ismael is discharged home via private vehicle with family. He will follow up with community providers and his discharge plan of care as instructed. He will follow up with Neurology and PCP, as scheduled. No new services were ordered prior to discharge. Patient/Family Education Needs: Review discharge instructions, limitations and plan to follow up with community providers. Discuss ask me three
--- NOTE | 2023-07-11 08:29 | OT.INDS ---
Occupational Therapy Notes 07/11/23 Pt was consulted on 07/10/23 and later discharged that date. He was not able to make any progress towards his goals d/t this. He was medically cleared and discharged home on 07/10/23. Based on this, pt is considered discharged from skilled Occupational Therapy services at this time. Shiloh Em, OTR/L
== END 2023-07-10 12:54 | disposition home health service (06) | DRG 897 ==
LOC: ER 21:29 → MS 22:57 → ICU 07-06 14:43 → MS 07-08 21:45
PROVIDERS: Internal Medicine; Admitting Provider Family Medicine; Emergency Provider Student in an Organized Health Care Education/Training Program; PCP Nurse Practitioner; Visit Provider Family Medicine
DX: F10.930 Alcohol use, unspecified with withdrawal, uncomplicated (principal); E87.20 Acidosis, unspecified; K92.1 Melena; E83.42 Hypomagnesemia; K70.10 Alcoholic hepatitis without ascites; I10 Essential (primary) hypertension; R31.0 Gross hematuria; J44.9 Chronic obstructive pulmonary disease, unspecified; K21.9 Gastro-esophageal reflux disease without esophagitis; F43.10 Post-traumatic stress disorder, unspecified; R10.84 Generalized abdominal pain; D64.9 Anemia, unspecified; E03.9 Hypothyroidism, unspecified; G89.29 Other chronic pain; F17.210 Nicotine dependence, cigarettes, uncomplicated; G25.0 Essential tremor; M47.816 Spondylosis without myelopathy or radiculopathy, lumbar region; I25.10 Atherosclerotic heart disease of native coronary artery without angina pectoris; M54.50 Low back pain, unspecified; F32.A Depression, unspecified; N40.1 Benign prostatic hyperplasia with lower urinary tract symptoms; R35.0 Frequency of micturition; E78.5 Hyperlipidemia, unspecified; R73.03 Prediabetes; F41.0 Panic disorder [episodic paroxysmal anxiety]; K29.70 Gastritis, unspecified, without bleeding; K29.80 Duodenitis without bleeding; G43.009 Migraine without aura, not intractable, without status migrainosus; Y04.0XXA Assault by unarmed brawl or fight, initial encounter; K76.0 Fatty (change of) liver, not elsewhere classified; M54.2 Cervicalgia; E53.8 Deficiency of other specified B group vitamins
CPT/HCPCS: 36410; 36415; 76770; 80048; 80053; 80076; 80307; 82550; 82805; 84145; 85027; 86704; 86706; 86803; 87340; 87635; 93005; 94640; 96365; 96375; 96376; 97162; 97166; 99285; 70450; 70551; 74176; 76705; 80320; 80329; 81003; 81015; 82607; 82728; 82746; 83540; 83550; 83605; 83735; 83880; 84100; 84132; 84443; 84484; 85014; 85018; 85025; 85610; 85730; 93010; 94664; 99232; 99239; 99291; J2060; J2405; J2560; J3360; J3475; J3480

== ENCOUNTER 2023-07-15 22:36 | Emergency (ER) | payer MEDICARE, SELFPAY ==
[2023-07-15 22:42] VITALS: BP 158/115; PULSE 129; RESP 18; TEMP 36.5; O2SAT 93
--- NOTE | 2023-07-15 22:45 | RT.EKG_ITS ---
APPROVED REPORT Exam: Resting ECG Reason for Exam: dizziness Patient Location: E HR:115 bpm ECG Measurements Heart Rate 115 AXIS MA 158 P 33 QRSd 91 QRS -13 QT 321 T 42 QTc 443 Conclusion Sinus tachycardia. Appropriate intervals. No ST segment or T wave abnormalities to suggest occlusive TX
[2023-07-15 22:47] VITALS: RESP 18
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
[2023-07-15] MEDS: Normal Saline 1,000 ML 1000 ML IV (23:13)
[2023-07-15] MEDS: Acetaminophen 500 MG TAB 1000 MG PO (23:13)
[2023-07-15 23:23] LABS: Abs Immature Grans 0.05 10^3/uL (0.0-0.06); Absolute Basophil Count 0.13 10^3/uL (0.0-0.2); Absolute Eosinophil Count 0.07 10^3/uL (0.0-0.7); Absolute Lymphocyte Count 1.93 10^3/uL (1.2-3.4); Absolute Monocyte Count 1.11 10^3/uL (0.1-0.8); Absolute Neutrophil Count 2.73 10^3/uL (1.2-6.7); Basophils % 2.2; Eosinophils % 1.2; HCT 35.6 % (40.0-50.0); HGB 11.6 g/dL (13.5-17.5); Immature Grans % 0.8; Lymphocytes % 32.1; MCH 30.1 pg (27.0-33.0); MCHC 32.6 % (32.0-36.0); MCV 92 fL (80-95); MPV 8.9 fL (8.0-11.0); Monocytes % 18.4; Neutrophils % 45.3; Platelet Count 555 10^3/uL (130-400); RBC 3.86 10^6/uL (4.36-5.78); RDW 14.9 % (11.8-14.1); RDW-SD 50.5 fL; WBC 6.02 10^3/uL (4.4-10.8)
[2023-07-15 23:51] LABS: ALT 69 U/L (16-63); AST 92 U/L (15-37); Albumin 3.3 g/dL (3.4-5.0); Alkaline Phosphatase 95 U/L (46-116); Anion Gap 10.9 mmol/L (3-11); BUN 17 mg/dL (7-18); Bilirubin, Total 0.1 mg/dL (0.2-1.0); CO2 27.1 mmol/L (21.0-32.0); CREATININE 0.6 mg/dL (0.70-1.30); Calcium 9.5 mg/dL (8.5-10.1); Chloride 102 mmol/L (98-107); Glucose 99 mg/dL (74-106); Sodium 140 mmol/L (136-145); Total Protein 7.7 g/dL (6.4-8.2); Troponin I < 50 ng/L (<or=60)
[2023-07-15 23:55] LABS: ETHANOL BLOOD 324.5 mg/dL (<10)
== END 2023-07-16 00:05 | disposition left against medical advice (07) ==
PROVIDERS: Emergency Provider Student in an Organized Health Care Education/Training Program; PCP Nurse Practitioner
DX: R42 Dizziness and giddiness (principal); F10.120 Alcohol abuse with intoxication, uncomplicated; I10 Essential (primary) hypertension; J44.9 Chronic obstructive pulmonary disease, unspecified; I25.10 Atherosclerotic heart disease of native coronary artery without angina pectoris; D64.9 Anemia, unspecified; R00.0 Tachycardia, unspecified; F17.210 Nicotine dependence, cigarettes, uncomplicated; Y90.8 Blood alcohol level of 240 mg/100 ml or more; Z79.899 Other long term (current) drug therapy; Z53.29 Procedure and treatment not carried out because of patient's decision for other reasons
CPT/HCPCS: 80053; 93005; 96360; 99283; 80320; 84484; 85025; 93010

== ENCOUNTER 2023-07-20 07:56 | Inpatient (IN) | payer MEDICARE, SELFPAY ==
[2023-07-20] VITALS (53 sets, daily range): BP systolic 102–167; BP diastolic 76–125; PULSE 66–164; RESP 10–25; TEMP 36.3–36.8; O2SAT 91–100
--- NOTE | 2023-07-20 | DI.CT_ITS ---
Exam(s) CT HEAD CERVICAL SPINE WO EXAM: CT HEAD CERVICAL SPINE WO CLINICAL HISTORY: trauma, headache, neck pain. TECHNIQUE: Imaging Protocol: Axial computed tomography images with coronal and sagittal reformatted images were created and reviewed COMPARISON: CT CT HEAD WO from 07/05/2023 FINDINGS: CT Head: Ventricles and Extra axial spaces: Normal in size and morphology for the patient's age. Hemorrhage: None. Cerebral parenchyma: There is a normal vivar-white matter differentiation. Midline shift: None. Brainstem/Cerebellum: Normal. Calvarium: Normal. Visualized Paranasal sinuses/Mastoids: There is opacification of a few ethmoid air cells. There muco us retention cysts or polyps seen in the maxillary sinuses. The visualized mastoid air cells are shefali ar. Soft Tissues: Unremarkable. CT Cervical Spine: Bones: No acute fracture or subluxation. Degenerative changes are seen in the cervical spine. Soft Tissues: Unremarkable. Lung Apices: Emphysematous changes are present in the lung apices. IMPRESSION: 1. No acute intracranial process. 2. No acute fracture or subluxation in the cervical spine. RADIATION DOSE DELIVERED: Total DLP DATA REPOSITORY: All CT scans at this facility are submitted to the National Radiology Data Registry (NRDR) Dose Index Registry (DIR) with the [employer] (A[employer]). RADIATION OPTIMIZATION: All CT scans at this facility use at least one of these dose optimization te chniques: automated exposure control; mA and/or kV adjustment per patient size (includes targeted exa ms where dose is matched to clinical indication); or iterative reconstruction.
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
[2023-07-20] MEDS: Normal Saline 1,000 ML 1000 ML IV (09:23)
[2023-07-20] MEDS: HYDROmorphone 2 MG/ML SYR 0.5 MG IVP (09:35)
[2023-07-20] MEDS: LORazepam 2 MG/ML VIAL 1 MG IVP (09:39)
[2023-07-20 09:40] LABS: Abs Immature Grans 0.01 10^3/uL (0.0-0.06); Absolute Basophil Count 0.06 10^3/uL (0.0-0.2); Absolute Eosinophil Count 0.04 10^3/uL (0.0-0.7); Absolute Monocyte Count 0.28 10^3/uL (0.1-0.8); Absolute Neutrophil Count 2.91 10^3/uL (1.2-6.7); Basophils % 1.3; Eosinophils % 0.9; Immature Grans % 0.2; Lymphocytes % 26.7; MCH 30.4 pg (27.0-33.0); MCHC 33.3 % (32.0-36.0); MCV 91 fL (80-95); MPV 8.7 fL (8.0-11.0); Monocytes % 6.2; Neutrophils % 64.7; Platelet Count 478 10^3/uL (130-400); RBC 3.95 10^6/uL (4.36-5.78); RDW-SD 50.4 fL
[2023-07-20 09:45] LABS: Prothrombin Time 9.7 sec (9.1-11.1)
[2023-07-20 09:51] LABS: ETHANOL BLOOD 310.9 mg/dL (<10)
[2023-07-20 09:53] LABS: ALT 84 U/L (16-63); AST 143 U/L (15-37); Albumin 3.9 g/dL (3.4-5.0); Alkaline Phosphatase 109 U/L (46-116); Anion Gap 16.5 mmol/L (3-11); BUN 10 mg/dL (7-18); Bilirubin, Total 0.3 mg/dL (0.2-1.0); CO2 24.5 mmol/L (21.0-32.0); CREATININE 0.7 mg/dL (0.70-1.30); Calcium 9.1 mg/dL (8.5-10.1); Chloride 99 mmol/L (98-107); Estimated GFR 106.14 (mL/min/1.73m2); Glucose 80 mg/dL (74-106); Magnesium 1.8 mg/dL (1.8-2.4); Potassium 3.8 mmol/L (3.5-5.1); Sodium 140 mmol/L (136-145); Total Protein 8.2 g/dL (6.4-8.2)
[2023-07-20] MEDS: PHENobarbital 150 MG in Normal Saline 50 ML 100 MG IVPB (10:53)
[2023-07-20] MEDS: THIAMINE 500 MG in Normal Saline 100 ML 200 MG IVPB ×2 (10:56→18:10)
[2023-07-20 11:14] LABS: COVID-19 PCR Negative (Negative); Influenza A PCR Negative (Negative); Influenza B PCR Negative (Negative); RSV PCR Negative (Negative)
[2023-07-20 11:15] LABS: Source Nasopharynx
[2023-07-20 12:49] LABS: *AMPHETAMINES SCREEN URINE Negative (Negative); *BARBITURATES SCREEN URINE Positive (Negative); *BENZODIAZEPINES SCREEN URINE Negative (Negative); Cannabinoids THC Negative (Negative); Cocaine Screen,Urine Negative (Negative); METHADONE URINE SCREEN Negative (Negative); OPIATES URINE SCREEN Positive (Negative)
[2023-07-20 12:52] LABS: Tricyclic Antidepressants Negative (Negative)
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
[2023-07-20] MEDS: PHENobarbital 110 MG in Normal Saline 50 ML 100 MG IVPB ×2 (14:26→17:02)
--- NOTE | 2023-07-20 16:34 | NUR.NOTE ---
Nursing Note: Pt's sister, Reynaldo Meier = [phone]
[2023-07-20] MEDS: Heparin 5,000 UNITS/ML VIAL 5000 UNITS SC (16:45)
[2023-07-20] MEDS: Diclofenac 1% Gel 100 GM TUBE TP ×2 (16:46→20:26)
[2023-07-20] MEDS: Acetaminophen 325 MG TAB PO (20:23)
[2023-07-20] MEDS: Celecoxib 200 MG CAP PO (20:23)
[2023-07-20] MEDS: Docusate Sodium 100 MG CAP PO (20:23)
[2023-07-20] MEDS: Normal Saline Flush 10 ML SYR IVP (20:26)
[2023-07-20] MEDS: PHENobarbital 130 MG/ML VIAL IVP (20:26)
[2023-07-21] VITALS (37 sets, daily range): BP systolic 119–156; BP diastolic 82–106; PULSE 70–117; RESP 14–23; TEMP 36.5–37; O2SAT 93–98
[2023-07-21] MEDS: THIAMINE 500 MG in Normal Saline 100 ML 200 MG IVPB ×3 (01:16→17:50)
[2023-07-21] MEDS: PHENobarbital 130 MG/ML VIAL IVP ×3 (01:17→23:43)
[2023-07-21] MEDS: Heparin 5,000 UNITS/ML VIAL 5000 UNITS SC ×4 (01:17→23:43)
[2023-07-21] MEDS: Normal Saline Flush 10 ML SYR IVP ×3 (01:17→08:50)
[2023-07-21 06:39] LABS: Abs Immature Grans 0.02 10^3/uL (0.0-0.06); Absolute Basophil Count 0.07 10^3/uL (0.0-0.2); Absolute Eosinophil Count 0.06 10^3/uL (0.0-0.7); Absolute Lymphocyte Count 1.56 10^3/uL (1.2-3.4); Absolute Monocyte Count 0.53 10^3/uL (0.1-0.8); Absolute Neutrophil Count 3.66 10^3/uL (1.2-6.7); Basophils % 1.2; HCT 33.1 % (40.0-50.0); HGB 11.1 g/dL (13.5-17.5); Immature Grans % 0.3; Lymphocytes % 26.4; MCH 30.3 pg (27.0-33.0); MCHC 33.5 % (32.0-36.0); MCV 90 fL (80-95); MPV 9.3 fL (8.0-11.0); Neutrophils % 62.1; Platelet Count 390 10^3/uL (130-400); RBC 3.66 10^6/uL (4.36-5.78); RDW 14.8 % (11.8-14.1); RDW-SD 49.4 fL
[2023-07-21 07:05] LABS: Anion Gap 9.2 mmol/L (3-11); BUN 6 mg/dL (7-18); CO2 27.8 mmol/L (21.0-32.0); CREATININE 0.7 mg/dL (0.70-1.30); Chloride 99 mmol/L (98-107); Estimated GFR 106.14 (mL/min/1.73m2); Glucose 95 mg/dL (74-106); Magnesium 1.6 mg/dL (1.8-2.4); Potassium 3.3 mmol/L (3.5-5.1); Sodium 136 mmol/L (136-145)
[2023-07-21] MEDS: Tiotropium/Olodaterol 10 PUFF INHALER 2 PUFF IH (07:52)
[2023-07-21 08:26] LABS: Prothrombin Time 9.6 sec (9.1-11.1)
[2023-07-21 08:30] LABS: PHENOBARBITAL 23.3 ug/mL (15.0-40.0)
[2023-07-21] MEDS: Multivitamin TAB 1 TAB PO (08:41)
[2023-07-21] MEDS: Pantoprazole 40 MG TABCR PO (08:41)
[2023-07-21] MEDS: Celecoxib 200 MG CAP PO ×2 (08:41→21:08)
[2023-07-21] MEDS: DULoxetine 30 MG CAP 60 MG PO (08:41)
[2023-07-21] MEDS: Magnesium Gluconate 500 MG TAB PO (08:42)
[2023-07-21] MEDS: Magnesium Chloride 64 MG TABCR PO ×2 (08:42→21:08)
[2023-07-21] MEDS: Cholecalciferol (Vitamin D3) 1,000 UNIT TAB 2000 UNITS PO (08:42)
[2023-07-21] MEDS: Potassium Chloride 20 MEQ TABCR 40 MEQ PO (08:42)
[2023-07-21] MEDS: amLODIPine 5 MG TAB PO (08:42)
[2023-07-21] MEDS: Folic Acid 1 MG TAB 5 MG PO (08:49)
--- NOTE | 2023-07-21 09:02 | PGE_ITS ---
Date of Service Date of service: 07/21/23 Time of Service: 09:03 Assessment and Plan Assessment and plan (1) Alcohol withdrawal syndrome without complication: Status: Acute Assessment and plan: Remains on the phenobarbital protocol. Better. Can probably be transferred out of the ICU later today. Continue high dose thiamine. (2) Metabolic acidosis: Status: Resolved Assessment and plan: Suspect alcoholic ketoacidosis. UA is pending, but the acidosis has resolved by BMP today. (3) Fall: Status: Acute Assessment and plan: CT head/neck negative. PT consulted. (4) Transaminitis: Status: Acute Assessment and plan: Due to EtOH liver disease but not necessarily alcoholic hepatitis. Discriminant functions score is actually negative. He had both a CT and an ultrasound of his abdomen on his last admission with us, and I do not think that repeating the workup is warranted given that he is asymptomatic. (5) Ambulatory dysfunction: Status: Acute Assessment and plan: PT consulted (6) Alcohol intoxication: Status: Acute Assessment and plan: As above (7) Neck pain: Assessment and plan: Continue outpatient diclofenac (8) COPD (chronic obstructive pulmonary disease): Status: Chronic Assessment and plan: Not in acute exacerbation. Has prn bronchdilators. (9) Hypokalemia: Status: Acute Assessment and plan: Replete; also replete magnesium (10) Hypomagnesemia: Status: Acute Assessment and plan: Replete. (11) DVT prophylaxis: Status: Acute Assessment and plan: SC heparin (12) Discharge planning issues: Status: Acute Assessment and plan: Full code May be able to be transferred to the medical surgical floor later today. Wants a raised toilet seat for discharge. Subjective Subjective Interval history since last seen: I want real food! Denies hallucinations. Denies dizziness except from talking so much, CP, SOB, n/v. Last CIWA score 8 this am. Got as high as 23 last night. Has received a total of 760 mg of phenobarb so far on this admission. Exam Narrative Exam Narrative: General: moderately tremulous middle aged male, sitting up in bed, joking with the nurse, A&Ox3, recognizes me. HEENT: EOMI, MMM Cardiovascular: RRR, mildly tachycardic, no m/r/g Lungs: CTAB Gastrointestinal: soft, nontender, nondistended Extremities: no edema BLEs Objective Last Vital Signs Temp 36.9 C 07/21/23 04:00 Pulse 81 07/21/23 06:58 Resp 20 07/21/23 06:58 BP 134/91 H 07/21/23 06:58 Pulse Ox 95 07/21/23 06:58 Laboratory Results - last 24 hr 07/20/23 07/20/23 07/20/23 09:23 10:25 12:30 WBC 4.50 RBC 3.95 L Hgb 12.0 L Hct 36.0 L MCV 91 MCH 30.4 MCHC 33.3 RDW 15.0 H Plt Count 478 H MPV 8.7 Immature Gran % 0.2 Neutrophils % 64.7 Lymphocytes % 26.7 Monocytes % 6.2 Eosinophils % 0.9 Basophils % 1.3 Nucleated RBC % 0.0 Absolute Neutrophils 2.91 Absolute Lymphocytes 1.20 Absolute Monocytes 0.28 Absolute Eosinophils 0.04 Absolute Basophils 0.06 PT 9.7 INR 1.0 Sodium 140 Potassium 3.8 Chloride 99 Carbon Dioxide 24.5 Anion Gap 16.5 H BUN 10 Creatinine 0.7 Est GFR (CKD-EPI 2020) 106.14 Glucose 80 Calcium 9.1 Magnesium 1.8 Total Bilirubin 0.3 AST 143 H ALT 84 H Alkaline Phosphatase 109 Total Protein 8.2 Albumin 3.9 Urine Opiates Screen Positive A Urine Methadone Screen Negative Ur Barbiturates Screen Positive A Ur Tricyclics Screen Negative Ur Amphetamines Screen Negative Phenobarbital U Benzodiazepines Scrn Negative Urine Cocaine Screen Negative Ur THC Screen Negative Ethyl Alcohol 310.9 H COVID-19 Source Nasopharynx SARS-CoV-2 (PCR) Negative Influenza Type A (PCR) Negative Influenza Type B (PCR) Negative RSV (PCR) Negative 07/21/23 07/21/23 05:45 08:06 WBC 5.90 RBC 3.66 L Hgb 11.1 L Hct 33.1 L MCV 90 MCH 30.3 MCHC 33.5 RDW 14.8 H Plt Count 390 MPV 9.3 Immature Gran % 0.3 Neutrophils % 62.1 Lymphocytes % 26.4 Monocytes % 9.0 Eosinophils % 1.0 Basophils % 1.2 Nucleated RBC % 0.0 Absolute Neutrophils 3.66 Absolute Lymphocytes 1.56 Absolute Monocytes 0.53 Absolute Eosinophils 0.06 Absolute Basophils 0.07 PT 9.6 INR 1.0 Sodium 136 Potassium 3.3 L Chloride 99 Carbon Dioxide 27.8 Anion Gap 9.2 BUN 6 L Creatinine 0.7 Est GFR (CKD-EPI 2020) 106.14 Glucose 95 Calcium 9.0 Magnesium 1.6 L Total Bilirubin AST ALT Alkaline Phosphatase Total Protein Albumin Urine Opiates Screen Urine Methadone Screen Ur Barbiturates Screen Ur Tricyclics Screen Ur Amphetamines Screen Phenobarbital 23.3 U Benzodiazepines Scrn Urine Cocaine Screen Ur THC Screen Ethyl Alcohol COVID-19 Source SARS-CoV-2 (PCR) Influenza Type A (PCR) Influenza Type B (PCR) RSV (PCR) Objective Narrative Objective Narrative: CT head/c-spine w/o contrast: 1. No acute intracranial process. 2. No acute fracture or subluxation in the cervical spine. PAWSS Have you Been Recently Intoxicated or Drunk Within the Last 30 days?: Yes Have you Ever Experienced Previous Episodes of Alcohol Withdrawal?: Unable to Obtain Have you ever Experienced Withdrawal Seizures?: Unable to Obtain Have you ever Experienced Delirium Tremens(DT)s?: Unable to Obtain Have you ever undergone Alcohol Rehabilitation Treatment (i.e, inpt ot outpatient treatment programs)?: Unable to Obtain Have you ever Experienced Blackouts?: Unable to Obtain Have you ever Combined Alcohol with other Downers within the last 90 days?: Unable to Obtain Have you ever Combined Alcohol with any other Substance of Abuse during the last 90 days?: Unable to Obtain Positive Blood Alcohol level on Presentation? [PCS.BAL]: Yes Evidence of Increased Autonomic Activity (i.e. HR>120, tremor, sweating, agitation, nausea)?: Yes Result: 3 Time Spent with Patient Time Spent with Patient: 35-49 minutes Time was spent: preparing to see the patient(eg.review tests), obtaining and/or reviewing separately otained hiistory, ordering medications,tests, procedures, referring, communicating with other health healthcare administrative assistant, indepentently interpreting results, counseling the patient and care coordination
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
[2023-07-21 10:05] LABS: Bilirubin Small (Negative); Blood Negative (Negative); Clarity Clear (Clear); Glucose 100 mg/dL (Negative); Ketones Trace mg/dL (Negative); Leukocyte Esterase Negative (Negative); Nitrite Negative (Negative); Specific Gravity 1.015 (1.005-1.025); Urobilinogen >=8.0 mg/dL (Up to 0.2); pH 7.5 (5-8)
[2023-07-21] MEDS: Diclofenac 1% Gel 100 GM TUBE TP ×3 (10:09→21:09)
[2023-07-21 10:10] LABS: Bacteria Rare HPF (Negative); C & S Indicated? No; Casts Negative LPF (Negative); Crystals Negative HPF (Negative); Epithelial Cells Rare HPF (Negative); Mucus Heavy (Negative); RBC 0-2 HPF (0-2); WBC 0-2 HPF (0-5)
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
[2023-07-22] VITALS (17 sets, daily range): BP systolic 127–138; BP diastolic 87; PULSE 65–105; RESP 14–22; TEMP 36.1–36.7; O2SAT 97–98
[2023-07-22] MEDS: Normal Saline Flush 10 ML SYR IVP ×3 (02:02→09:58)
[2023-07-22] MEDS: THIAMINE 500 MG in Normal Saline 100 ML 200 MG IVPB ×2 (02:02→10:02)
[2023-07-22 05:48] LABS: Abs Immature Grans 0.01 10^3/uL (0.0-0.06); Absolute Basophil Count 0.04 10^3/uL (0.0-0.2); Absolute Eosinophil Count 0.16 10^3/uL (0.0-0.7); Absolute Lymphocyte Count 1.55 10^3/uL (1.2-3.4); Absolute Monocyte Count 0.28 10^3/uL (0.1-0.8); Absolute Neutrophil Count 3.05 10^3/uL (1.2-6.7); Basophils % 0.8; Eosinophils % 3.1; HCT 32.6 % (40.0-50.0); HGB 10.8 g/dL (13.5-17.5); Immature Grans % 0.2; Lymphocytes % 30.5; MCH 29.8 pg (27.0-33.0); MCHC 33.1 % (32.0-36.0); MCV 90 fL (80-95); MPV 9.3 fL (8.0-11.0); Monocytes % 5.5; Neutrophils % 59.9; Platelet Count 313 10^3/uL (130-400); RBC 3.62 10^6/uL (4.36-5.78); RDW 14.4 % (11.8-14.1); RDW-SD 47.6 fL; WBC 5.09 10^3/uL (4.4-10.8)
[2023-07-22 06:12] LABS: ALT 49 U/L (16-63); AST 58 U/L (15-37); Albumin 3.2 g/dL (3.4-5.0); Alkaline Phosphatase 86 U/L (46-116); Anion Gap 5.9 mmol/L (3-11); BUN 3 mg/dL (7-18); Bilirubin, Direct 0.1 mg/dL (0.0-0.2); Bilirubin, Total 0.4 mg/dL (0.2-1.0); CO2 27.1 mmol/L (21.0-32.0); CREATININE 0.7 mg/dL (0.70-1.30); Calcium 9.1 mg/dL (8.5-10.1); Chloride 100 mmol/L (98-107); Estimated GFR 106.14 (mL/min/1.73m2); Glucose 112 mg/dL (74-106); Magnesium 1.6 mg/dL (1.8-2.4); Potassium 3.8 mmol/L (3.5-5.1); Sodium 133 mmol/L (136-145); Total Protein 6.9 g/dL (6.4-8.2)
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
[2023-07-22] MEDS: Tiotropium/Olodaterol 10 PUFF INHALER 2 PUFF IH (08:23)
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
--- NOTE | 2023-07-22 09:16 | PDOC.HHF2F_ITS ---
Home Health Referral Home Health Orders Clinical synopsis of why skilled professionals are needed: Mr Morales is a 58 year old male with PMHx of EtOH abuse and withdrawal in the past as well as h/o COPD and chronic ambulatory dysfunction with many falls at home who was a patient on the [facility] hospitalist service from 07/20/23 until 07/22/23 for alcohol withdrawal. He was initially admitted to the ICU but downgraded to the medical surgical floor on 07/21/23. He received phenobarbital therapy for his withdrawal. Because of a reported fall with hitting his head, the patient did undergo a CT head and neck, which was negative for any acute issues. He was evaluated by PT who recommend home health physical therapy which is being ordered on discharge to work on his balance. The patient is not sure he is prepared to stop drinking. We advised that he did. He is no longer at risk for seizures having being loaded with phenobarbital and verbalizes a strong desire to be discharged from the hospital, which should be safe at this point. He is being discharged on magnesium repletion. Bloodwork is ordered for 1 week. Physical Therapist: Check all that apply Increase strength & endurance for safe mobility at home: Ordered To design/establish home maintenance program: Ordered Fall reduction therapy program for patient with history of frequent falls: Ordered Home safety evaluation and teaching/gait training including stair management (if applicable): Ordered Better Breathing Program: Ordered Home Bound Status Assistance of another person (Describe assistance and medical necessity): Patient is a high risk to fall and relies on his for transportation Describe why leaving home would require a considerable and taxing effort: Requires frequent rest periods Encounter Date and Reason: I certify that a FTF encounter for this patient was performed on July 22, 2023 and that such encounter was related to the primary reason the patient requires home health services. The encounter was conducted in the following manner: * By me as the certifying physician, GEOSPATIAL PROGRAM MANAGEMENT OFFICER, PA or * By an inpatient physician, GEOSPATIAL PROGRAM MANAGEMENT OFFICER or PA during an inpatient stay who communicated findings to me, Certification And Authentication I certify that I composed the above information based on my clinical judgment relating to this patient's medical condition and, if applicable, clinical findings communicated to me by the NPP or inpatient physician who performed the FTF encounter. Name of Provider that will be monitoring home health services: Maggy Tello
[2023-07-22] MEDS: Cholecalciferol (Vitamin D3) 1,000 UNIT TAB 2000 UNITS PO (09:18)
[2023-07-22] MEDS: Celecoxib 200 MG CAP PO (09:18)
[2023-07-22] MEDS: DULoxetine 30 MG CAP 60 MG PO (09:19)
[2023-07-22] MEDS: Diclofenac 1% Gel 100 GM TUBE TP ×2 (09:19→12:28)
[2023-07-22] MEDS: Multivitamin TAB 1 TAB PO (09:20)
[2023-07-22] MEDS: Heparin 5,000 UNITS/ML VIAL 5000 UNITS SC (09:20)
[2023-07-22] MEDS: Magnesium Chloride 64 MG TABCR PO (09:20)
[2023-07-22] MEDS: Folic Acid 1 MG TAB 5 MG PO (09:20)
[2023-07-22] MEDS: amLODIPine 5 MG TAB PO (09:21)
[2023-07-22] MEDS: Pantoprazole 40 MG TABCR PO (09:30)
[2023-07-22] MEDS: MAGNESIUM SULFATE 2 GM/50 ML BAG IVPB (09:31)
--- NOTE | 2023-07-22 09:50 | PDOC.CMDIS ---
Date of service: 07/22/23 Time of Service: 09:51 LACE Index Scoring Tool Questions: Length of Stay (in days): 2 Was the patient admitted via the E.D.?: Yes Comorbidities: Chronic Pulmonary Disease E.D. Visits: 5 Answers: Total Score: 11 Risk of Readmission: High Risk Care Management Discharge Plan Reason for Hospitalization: Alcohol Withdrawal Discharge Plan: Ismael will return home today with new orders for HH PT. His will drive him home via private vehicle. He will follow up with his PCP and discharge plan of care. He is happy to be returning home. Patient/Family Education Needs: Review discharge instructions and limitations, discussion of self care needs including ask me three. Services Needed at Discharge: Home Health Care Services (HH PT)
[2023-07-22] MEDS: PHENobarbital 130 MG/ML VIAL IVP (09:58)
--- NOTE | 2023-07-22 11:47 | PT.INNT ---
PT Notes Visit Reasons: Alcohol Withdrawal Pt getting ready to go home.
== END 2023-07-22 13:30 | disposition home health service (06) | DRG 897 ==
LOC: ER 10:31 → ICU 12:32
PROVIDERS: Admitting Provider Internal Medicine; Emergency Provider Emergency Medicine Emergency Medical Services; PCP Nurse Practitioner; Visit Provider Internal Medicine
DX: F10.130 Alcohol abuse with withdrawal, uncomplicated (principal); E87.29 Other acidosis; W19.XXXA Unspecified fall, initial encounter; R26.2 Difficulty in walking, not elsewhere classified; M54.2 Cervicalgia; J44.9 Chronic obstructive pulmonary disease, unspecified; R74.01 Elevation of levels of liver transaminase levels; E83.42 Hypomagnesemia; E87.6 Hypokalemia; G43.909 Migraine, unspecified, not intractable, without status migrainosus; K70.10 Alcoholic hepatitis without ascites; K44.9 Diaphragmatic hernia without obstruction or gangrene; K76.0 Fatty (change of) liver, not elsewhere classified; M47.816 Spondylosis without myelopathy or radiculopathy, lumbar region; F17.200 Nicotine dependence, unspecified, uncomplicated; I25.10 Atherosclerotic heart disease of native coronary artery without angina pectoris; G89.29 Other chronic pain; F43.12 Post-traumatic stress disorder, chronic; R73.03 Prediabetes; I10 Essential (primary) hypertension; E78.5 Hyperlipidemia, unspecified; F41.0 Panic disorder [episodic paroxysmal anxiety]; G43.009 Migraine without aura, not intractable, without status migrainosus; G25.0 Essential tremor; G47.00 Insomnia, unspecified; M54.50 Low back pain, unspecified; F10.121 Alcohol abuse with intoxication delirium; R44.1 Visual hallucinations
CPT/HCPCS: 00123; 80048; 80053; 80076; 80307; 87637; 94640; 96365; 96367; 96375; 96376; 97162; 99291; 70450; 72125; 80184; 80320; 81003; 81015; 83735; 85025; 85610; 94664; 99223; 99232; 99233; 99239; J1170; J1644; J2060; J2560

== ENCOUNTER 2023-07-23 16:40 | Emergency (ER) | payer MEDICARE, SELFPAY ==
[2023-07-23 16:47] VITALS: BP 129/90; PULSE 132; RESP 16; TEMP 36.3; O2SAT 94
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
[2023-07-23 18:16] VITALS: PULSE 104; O2SAT 94
== END 2023-07-23 18:54 | disposition home or self-care (01) ==
PROVIDERS: Emergency Provider Nurse Practitioner Acute Care; PCP Nurse Practitioner
DX: F10.929 Alcohol use, unspecified with intoxication, unspecified (principal)
CPT/HCPCS: 99282

== ENCOUNTER 2023-07-28 09:03 | Emergency (ER) | payer MEDICARE, SELFPAY ==
[2023-07-28 09:26] VITALS: BP 151/101; PULSE 132; RESP 18; TEMP 36.7; O2SAT 90
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
--- NOTE | 2023-07-28 10:31 | NUR.NOTE ---
Nursing Note: patient laying quietly on stretcher looking on cell phone at this time.
--- NOTE | 2023-07-28 11:05 | NUR.NOTE ---
Nursing Note: Pt stated suicidal ideations on assessment. Notified gas engine mechanicBRANDY Roberts and MD Blair.
[2023-07-28 11:09] LABS: Abs Immature Grans 0.02 10^3/uL (0.0-0.06); Absolute Basophil Count 0.04 10^3/uL (0.0-0.2); Absolute Eosinophil Count 0.08 10^3/uL (0.0-0.7); Absolute Lymphocyte Count 1.33 10^3/uL (1.2-3.4); Absolute Monocyte Count 0.49 10^3/uL (0.1-0.8); Absolute Neutrophil Count 2.33 10^3/uL (1.2-6.7); Basophils % 0.9; Eosinophils % 1.9; HCT 33.5 % (40.0-50.0); Immature Grans % 0.5; MCH 29.9 pg (27.0-33.0); MCHC 32.8 % (32.0-36.0); MCV 91 fL (80-95); MPV 8.8 fL (8.0-11.0); Monocytes % 11.4; Neutrophils % 54.3; Platelet Count 193 10^3/uL (130-400); RBC 3.68 10^6/uL (4.36-5.78); RDW-SD 50.6 fL; WBC 4.29 10^3/uL (4.4-10.8)
[2023-07-28 11:26] LABS: ALT 44 U/L (16-63); AST 65 U/L (15-37); Albumin 3.6 g/dL (3.4-5.0); Alkaline Phosphatase 90 U/L (46-116); Anion Gap 11.6 mmol/L (3-11); BUN 11 mg/dL (7-18); Bilirubin, Total 0.2 mg/dL (0.2-1.0); CO2 28.4 mmol/L (21.0-32.0); CREATININE 0.6 mg/dL (0.70-1.30); Calcium 9.2 mg/dL (8.5-10.1); Chloride 103 mmol/L (98-107); Glucose 90 mg/dL (74-106); Lipase 151 U/L (16-77); Magnesium 1.7 mg/dL (1.8-2.4); Potassium 3.8 mmol/L (3.5-5.1); Sodium 143 mmol/L (136-145); Total Protein 7.5 g/dL (6.4-8.2)
[2023-07-28 11:27] LABS: ETHANOL BLOOD 392.8 mg/dL (<10)
[2023-07-28] MEDS: LORazepam 2 MG/ML VIAL IM (11:39)
[2023-07-28] MEDS: diphenhydrAMINE 50 MG/ML VIAL IM/IVP (11:39)
[2023-07-28] MEDS: Haloperidol 5 MG/ML VIAL IM (11:39)
[2023-07-28 12:21] VITALS: BP 107/70; PULSE 107; RESP 14; O2SAT 93
[2023-07-28 16:07] VITALS: PULSE 90; O2SAT 92
--- NOTE | 2023-07-28 19:55 | ED.PROG_ITS ---
Date of service: 07/28/23 Time of Service: 22:30 Medical Decision Making 1939. The patient is awake and ambulating steadily. He was given a drink and a sandwich. He is quite shaky but says that he shakes regardless of whether he is drinking or not. I wonder if he has benign essential tremor. The patient st ates that he always thinks about hurting himself but cannot really figure out how to do this. He says he started drinking after he had an allergic reaction to barium and gadolinium. 2229. ETOH 85 at 1999. Sober at a little after 2299, psych aware. Pt. has been very cooperative. Sign Out Sign Out Data: Sign Out Comment: 58-year-old male with history of alcohol abuse presente requesting detox. Patient was drinking vodkad while being dropped off to the emergency department. Found to be significantly intoxicated. Initially calm and cooperative however became aggressive. Threatened to harm staff and himself. Due to the suicidal ideation and agitation he was placed on a watch. He received IM Benadryl, Haldol, Ativan. He will sober and need psychiatric reassessment. Last updated by Alecia Mcfarlane MD at 07/28/23 14:24 Sign Out Comment: This 58-year-old alcoholic was dropped off at the ED while significantly intoxicated. He had aggressive behavior and received a B-52. He awoke around 7:00 and had a sandwich and something to drink. I chatted with him at that time and he says that he frequently has suicidal thoughts. His EtOH was repeated and he is sober and awaiting psychiatric evaluation. Last updated by Nakia Jacobs MD at 07/28/23 23:26 Discharge Plan Disposition Patient Disposition: Home Condition: Good Discharge Details Clinical Impression: Alcohol intoxication, Hypomagnesemia, Suicidal ideation Primary Care Provider: Maggy Tello ED Provider: Francisca Lin Home Meds and New Rx's Prescriptions: No Action amlodipine 5 mg tablet 5 mg PO DAILY Qty: 90 0RF duloxetine 60 mg capsule,delayed release(DR/EC) 60 mg PO DAILY Qty: 90 0RF cholecalciferol (vitamin D3) 1,250 mcg (50,000 unit) capsule 1,250 mcg PO QWEEK Qty: 12 3RF albuterol sulfate 90 mcg/actuation HFA aerosol inhaler 2 puff inhalation Q6H PRN (Reason: shortness of breath or wheezing) Qty: 8.5 6RF Patient Comments: pt states not taking Stiolto Respimat 2.5-2.5 mcg/actuation mist 2 puff inhalation DAILY Qty: 4 12RF Patient Comments: pt states not taking celecoxib 200 mg Capsule 200 mg PO BID 30 Days Qty: 60 0RF diclofenac sodium 3 % Gel 100 g topical QID Qty: 100 0RF Rx Instructions: apply to neck and back folic acid 1 mg Tablet 5 mg PO QAM 30 Days Qty: 150 0RF Rx Instructions: after 10 days, decrease folic acid to 1 mg daily magnesium gluconate 27 mg magnesium (500 mg) Tablet 500 mg PO DAILY 30 Days Qty: 30 0RF multivitamin [Multiple Vitamins] Tablet 1 tab PO QAM 30 Days Qty: 30 0RF thiamine mononitrate (vit B1) [Vitamin B-1 (mononitrate)] 100 mg Tablet 100 mg PO QAM 30 Days Qty: 30 0RF pantoprazole 40 mg Tablet,Delayed Release (Dr/Ec) 40 mg PO DAILY 30 Days Qty: 30 0RF Mag 64 64 mg Tablet,Delayed Release (Dr/Ec) 128 mg PO BID Qty: 28 0RF Discharge Instructions Instructions: Alcohol Withdrawal (ED), Help Prevent Suicide (ED) Additional Instructions: Call the phone number you were given to touch base with mental health on Monday. Call your primary care doctor on Monday to schedule an appointment within one week to follow up on your visit today. Return to the emergency department for new or worsening symptoms, including if you feel unsafe or like you will hurt yourself, symptoms of alcohol withdrawal, or if you have any other concerns. Referrals: Maggy Tello NP [Primary Care Provider] - Discharge Data Discharge Date/Time-TO BE ENTERED AT DEPARTURE: 07/29/23 05:42
[2023-07-28 20:00] VITALS: BP 126/94; PULSE 127; RESP 20; TEMP 37.1; O2SAT 97
[2023-07-28 20:09] LABS: *AMPHETAMINES SCREEN URINE Negative (Negative); *BARBITURATES SCREEN URINE Positive (Negative); *BENZODIAZEPINES SCREEN URINE Negative (Negative); Cannabinoids THC Positive (Negative); Cocaine Screen,Urine Negative (Negative); METHADONE URINE SCREEN Negative (Negative); OPIATES URINE SCREEN Negative (Negative)
[2023-07-28 20:11] LABS: Tricyclic Antidepressants Negative (Negative)
[2023-07-28 22:00] LABS: ETHANOL BLOOD 84.8 mg/dL (<10)
--- NOTE | 2023-07-28 23:31 | ED.PROG_ITS ---
Date of service: 07/28/23 Time of Service: 23:31 Medical Decision Making This patient was signed out to me. Please see previous notes for H&P and initial eval. In brief, 58yo M presenting with ETOH intoxication and SI. Will speaking with MH when sober. MH evaluated patient, plan made with patient to call them on Monday to followup. Patient is amenable to this plan and states he feels safe to go home. Alert, clinically sober, reports he currently has moderate back lumbar back pain which is chronic for him, unchanged from baseline, requests pain medication. Also is feeling anxious here. Given tylenol, ibuprofen, 1mg PO ativan for symptoms. CIWA scoring low, 4. He requests discharge home which is not unreasonable. I reviewed with him the dangers of alcohol withdrawal and he verbalized understanding of the risks, states he intends to resume drinking. I encouraged him to reach out for assistance should he choose to stop drinking. Vital signs reassuring, mildly tachycardiac to low 100's-110's which on record review is not abnormal for him. Unable to obtain rider overnight; slept comfortably in ED until 529 at which point he was well appearing, denies symptoms of ETOH withdrawal, and ambualted with steady gait. Labs obtained earlier in visit with no actionable abnormalities, consistent with chronic disease processes for which he was instructed to followup with his PCP. Discharged home; discharge instructions including return precautions were reviewed with patient who verbalized understanding. All questions were answered and they are in full agreement with the plan. Lab Data Lab results reviewed: Yes I reviewed the patient's lab results. Sign Out Sign Out Data: Sign Out Comment: 58-year-old male with history of alcohol abuse presente requesting detox. Patient was drinking vodkad while being dropped off to the emergency department. Found to be significantly intoxicated. Initially calm and cooperative however became aggressive. Threatened to harm staff and himself. Due to the suicidal ideation and agitation he was placed on a watch. He received IM Benadryl, Haldol, Ativan. He will sober and need psychiatric abbey ssessment. Last updated by Alecia Mcfarlane MD at 07/28/23 14:24 Sign Out Comment: This 58-year-old alcoholic was dropped off at the ED while significantly intoxicated. He had aggressive behavior and received a B-52. He awoke around 7:00 and had a sandwich and something to drink. I chatted with him at that time and he says that he frequently has suicidal thoughts. His EtOH was repeated and he is sober and awaiting psychiatric evaluation. Last updated by Nakia Jacobs MD at 07/28/23 23:26 Discharge Plan Disposition Patient Disposition: Home Condition: Good Discharge Details Clinical Impression: Alcohol intoxication, Hypomagnesemia, Suicidal ideation Primary Care Provider: Maggy Tello ED Provider: Francisca Lin Home Meds and New Rx's Prescriptions: No Action amlodipine 5 mg tablet 5 mg PO DAILY Qty: 90 0RF duloxetine 60 mg capsule,delayed release(DR/EC) 60 mg PO DAILY Qty: 90 0RF cholecalciferol (vitamin D3) 1,250 mcg (50,000 unit) capsule 1,250 mcg PO QWEEK Qty: 12 3RF albuterol sulfate 90 mcg/actuation HFA aerosol inhaler 2 puff inhalation Q6H PRN (Reason: shortness of breath or wheezing) Qty: 8.5 6RF Patient Comments: pt states not taking Stiolto Respimat 2.5-2.5 mcg/actuation mist 2 puff inhalation DAILY Qty: 4 12RF Patient Comments: pt states not taking celecoxib 200 mg Capsule 200 mg PO BID 30 Days Qty: 60 0RF diclofenac sodium 3 % Gel 100 g topical QID Qty: 100 0RF Rx Instructions: apply to neck and back folic acid 1 mg Tablet 5 mg PO QAM 30 Days Qty: 150 0RF Rx Instructions: after 10 days, decrease folic acid to 1 mg daily magnesium gluconate 27 mg magnesium (500 mg) Tablet 500 mg PO DAILY 30 Days Qty: 30 0RF multivitamin [Multiple Vitamins] Tablet 1 tab PO QAM 30 Days Qty: 30 0RF thiamine mononitrate (vit B1) [Vitamin B-1 (mononitrate)] 100 mg Tablet 100 mg PO QAM 30 Days Qty: 30 0RF pantoprazole 40 mg Tablet,Delayed Release (Dr/Ec) 40 mg PO DAILY 30 Days Qty: 30 0RF Mag 64 64 mg Tablet,Delayed Release (Dr/Ec) 128 mg PO BID Qty: 28 0RF Discharge Instructions Instructions: Alcohol Withdrawal (ED), Help Prevent Suicide (ED) Additional Instructions: Call the phone number you were given to touch base with mental health on Monday. Call your primary care doctor on Monday to schedule an appointment within one week to follow up on your visit today. Return to the emergency department for new or worsening symptoms, including if you feel unsafe or like you will hurt yourself, symptoms of alcohol withdrawal, or if you have any other concerns. Referrals: Maggy Tello NP [Primary Care Provider] - Discharge Data Discharge Date/Time-TO BE ENTERED AT DEPARTURE: 07/29/23 05:42
[2023-07-28] MEDS: Acetaminophen 325 MG TAB 650 MG PO (23:50)
[2023-07-28] MEDS: Ibuprofen 600 MG TAB PO (23:51)
[2023-07-28] MEDS: LORazepam 1 MG TAB PO (23:56)
[2023-07-29 05:41] VITALS: BP 130/84; PULSE 114; RESP 14; O2SAT 97
== END 2023-07-29 05:42 | disposition home or self-care (01) ==
PROVIDERS: Emergency Medicine; Emergency Medicine Emergency Medical Services; Emergency Provider Student in an Organized Health Care Education/Training Program; PCP Nurse Practitioner
DX: F10.239 Alcohol dependence with withdrawal, unspecified (principal); F10.220 Alcohol dependence with intoxication, uncomplicated; E83.42 Hypomagnesemia; R45.851 Suicidal ideations; J44.9 Chronic obstructive pulmonary disease, unspecified; I10 Essential (primary) hypertension; F17.210 Nicotine dependence, cigarettes, uncomplicated; Z79.899 Other long term (current) drug therapy; Y90.8 Blood alcohol level of 240 mg/100 ml or more
CPT/HCPCS: 00123; 80053; 80307; 83690; 96372; 99284; 80320; 83735; 85025; J1200; J1630; J2060

== ENCOUNTER 2023-08-01 12:33 | Emergency (ER) | payer MEDICARE, SELFPAY ==
[2023-08-01 13:00] VITALS: BP 161/102; PULSE 120; RESP 20; TEMP 37; O2SAT 99
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
[2023-08-01 13:43] LABS: Abs Immature Grans 0.01 10^3/uL (0.0-0.06); Absolute Basophil Count 0.04 10^3/uL (0.0-0.2); Absolute Eosinophil Count 0.14 10^3/uL (0.0-0.7); Absolute Lymphocyte Count 2.05 10^3/uL (1.2-3.4); Absolute Monocyte Count 0.45 10^3/uL (0.1-0.8); Absolute Neutrophil Count 2.56 10^3/uL (1.2-6.7); Basophils % 0.8; Eosinophils % 2.7; HCT 35.3 % (40.0-50.0); HGB 11.5 g/dL (13.5-17.5); Immature Grans % 0.2; MCH 29.4 pg (27.0-33.0); MCHC 32.6 % (32.0-36.0); MCV 90 fL (80-95); MPV 8.7 fL (8.0-11.0); Monocytes % 8.6; Neutrophils % 48.7; Platelet Count 199 10^3/uL (130-400); RBC 3.91 10^6/uL (4.36-5.78); RDW 14.6 % (11.8-14.1); RDW-SD 48.3 fL; WBC 5.25 10^3/uL (4.4-10.8)
[2023-08-01 14:07] LABS: Salicylate 3.6 mg/dL (<2.8)
[2023-08-01 14:08] LABS: Acetaminophen < 2 ug/mL (10-30)
[2023-08-01 14:11] LABS: ALT 52 U/L (16-63); AST 110 U/L (15-37); Albumin 3.9 g/dL (3.4-5.0); Alkaline Phosphatase 99 U/L (46-116); Anion Gap 13.7 mmol/L (3-11); BUN 7 mg/dL (7-18); Bilirubin, Total 0.2 mg/dL (0.2-1.0); CO2 27.3 mmol/L (21.0-32.0); CREATININE 0.7 mg/dL (0.70-1.30); Calcium 9.5 mg/dL (8.5-10.1); Chloride 102 mmol/L (98-107); ETHANOL BLOOD 446.4 mg/dL (<10); Estimated GFR 106.14 (mL/min/1.73m2); Glucose 96 mg/dL (74-106); Potassium 3.6 mmol/L (3.5-5.1); Sodium 143 mmol/L (136-145); TSH (W/Ref FT4) 1.31 uIU/mL (0.36-3.74); Total Protein 7.9 g/dL (6.4-8.2)
[2023-08-01 15:39] VITALS: BP 142/90; PULSE 110; RESP 20; O2SAT 97
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
[2023-08-01 16:02] VITALS: BP 142/88; PULSE 96; RESP 22; O2SAT 98
[2023-08-01] MEDS: LORazepam 1 MG TAB PO (16:48)
[2023-08-01] MEDS: Ibuprofen 600 MG TAB PO (16:48)
[2023-08-01 20:57] LABS: Bilirubin Small (Negative); Blood Negative (Negative); Clarity Clear (Clear); Glucose Negative (Negative); Ketones 15 mg/dL (Negative); Leukocyte Esterase Negative (Negative); Nitrite Negative (Negative); Specific Gravity >= 1.030 (1.005-1.025); pH 5.5 (5-8)
[2023-08-01 21:09] LABS: *AMPHETAMINES SCREEN URINE Negative (Negative); *BARBITURATES SCREEN URINE Positive (Negative); *BENZODIAZEPINES SCREEN URINE Negative (Negative); Bacteria Negative HPF (Negative); Cannabinoids THC Positive (Negative); Cocaine Screen,Urine Negative (Negative); Epithelial Cells Rare HPF (Negative); METHADONE URINE SCREEN Negative (Negative); Mucus Heavy (Negative); OPIATES URINE SCREEN Negative (Negative); Other Cells Negative (Negative); RBC 0-2 HPF (0-2); WBC 0-2 HPF (0-5)
[2023-08-01 21:10] LABS: C & S Indicated? No; Casts 0-2 Hyaline LPF (Negative)
[2023-08-01 21:17] LABS: Crystals Rare Amorphous HPF (Negative)
[2023-08-01 21:35] LABS: ETHANOL BLOOD 204.3 mg/dL (<10)
[2023-08-01 22:11] VITALS: BP 120/86; PULSE 125; RESP 20; O2SAT 97
--- NOTE | 2023-08-01 23:30 | W.EDPROG ---
Date of service: 08/02/23 Time of Service: 06:52 Medical Decision Making Patient is well-known to me from prior ER visits. Of note, he is typically tachycardic. He reports tremors all the time. 0520 Crisis called to eval pt. CIWA is 5. He reports a LEONG which is chronic. 0600. Dilan from Crisis thinks the patient can go home. He says it is his who has the gun and she keeps it locked up. Dilan has not verified this with the patient's and thus I feel there is not a safe discharge. We did give her his Krissy's telephone number at [phone]. There is no answer at this time. I have asked her to try again in an hour and to sign off to the daytime folks so that we can reach the patient's or other family to assure this is a safe d/c. Medical Records Medical records reviewed: Yes I reviewed the patient's medical records. Lab Data Lab results reviewed: Yes I reviewed the patient's lab results. Sign Out Sign Out Data: Sign Out Comment: Alcoholic, alcohol greater than 445, currently having suicidal ideation stating he will shoot himself in the head, and homicidal ideation stating that he will run over his . Pending sobriety and evaluation by mental health. Offered Zyprexa but patient has now refused. Last updated by Carlos Machuca DO at 08/01/23 15:32 Sign Out Comment: Patient here with SI, and HI. ETOH 446 at 1330 today, repeat at 2130, greater than 200. Ambulatory in department to with minimal assistance. Has received Ibuprofen and Lorazepam PO. Has not taken his normal home meds in unknown amount of time, patient states they don't work. Awaiting eval and disposition. Last updated by Aleshia Wynn NP at 08/01/23 22:24 Discharge Plan Discharge Details Chief Complaint: PsychEval Clinical Impression: Suicidal ideation, Alcohol intoxication Primary Care Provider: Maggy Tello ED Provider: Nakia Jacobs Home Meds and New Rx's Prescriptions: No Action amlodipine 5 mg tablet 5 mg PO DAILY Qty: 90 0RF Hold Instructions: Pt Stopped/Never Started duloxetine 60 mg capsule,delayed release(DR/EC) 60 mg PO DAILY Qty: 90 0RF cholecalciferol (vitamin D3) 1,250 mcg (50,000 unit) capsule 1,250 mcg PO QWEEK Qty: 12 3RF albuterol sulfate 90 mcg/actuation HFA aerosol inhaler 2 puff inhalation Q6H PRN (Reason: shortness of breath or wheezing) Qty: 8.5 6RF Patient Comments: pt states not taking Stiolto Respimat 2.5-2.5 mcg/actuation mist 2 puff inhalation DAILY Qty: 4 12RF Patient Comments: pt states not taking celecoxib 200 mg Capsule 200 mg PO BID 30 Days Qty: 60 0RF diclofenac sodium 3 % Gel 100 g topical QID Qty: 100 0RF Rx Instructions: apply to neck and back folic acid 1 mg Tablet 5 mg PO QAM 30 Days Qty: 150 0RF Rx Instructions: after 10 days, decrease folic acid to 1 mg daily magnesium gluconate 27 mg magnesium (500 mg) Tablet 500 mg PO DAILY 30 Days Qty: 30 0RF multivitamin [Multiple Vitamins] Tablet 1 tab PO QAM 30 Days Qty: 30 0RF thiamine mononitrate (vit B1) [Vitamin B-1 (mononitrate)] 100 mg Tablet 100 mg PO QAM 30 Days Qty: 30 0RF pantoprazole 40 mg Tablet,Delayed Release (Dr/Ec) 40 mg PO DAILY 30 Days Qty: 30 0RF Mag 64 64 mg Tablet,Delayed Release (Dr/Ec) 128 mg PO BID Qty: 28 0RF
[2023-08-02 00:28] VITALS: BP 136/91; PULSE 106; O2SAT 98
[2023-08-02] MEDS: LORazepam 1 MG TAB 2 MG PO ×2 (00:33→06:29)
[2023-08-02 05:09] VITALS: BP 142/105; PULSE 126; O2SAT 98
--- NOTE | 2023-08-02 07:56 | W.EDPROG ---
Date of service: 08/02/23 Time of Service: 07:56 Medical Decision Making Accepted sign out from overnight physician. Patient reported that her that he had planned to run his over with a car and shoot himself. Patient frequently comes to the emergency department with complications from chronic alcohol abuse. He has been resting comfortably overnight he has been monitored closely for signs of withdrawal. 0745: Spoke with [facility]. She was able to contact the . The reported to her that he indeed tried to blow his brains out and had a gun, he fired the gun but it misfired. Given this information, they would like to reevaluate the patient. They are requesting that we continue to hold the patient in the emergency department and a mental health worker will come here to evaluate him in person to determine further plan. 1440: Patient evaluated by mental health workers, the patient will stay as a voluntary admit. There have been no additional symptoms concerning for alcohol withdrawal. Patient currently pending placement Sign Out Sign Out Data: Sign Out Comment: Alcoholic, alcohol greater than 445, currently having suicidal ideation stating he will shoot himself in the head, and homicidal ideation stating that he will run over his . Pending sobriety and evaluation by mental health. Offered Zyprexa but patient has now refused. Last updated by Carlos Machuca DO at 08/01/23 15:32 Sign Out Comment: Patient here with SI, and HI. ETOH 446 at 1330 today, repeat at 2130, greater than 200. Ambulatory in department to with minimal assistance. Has received Ibuprofen and Lorazepam PO. Has not taken his normal home meds in unknown amount of time, patient states they don't work. Awaiting eval and disposition. Last updated by Aleshia Wynn NP at 08/01/23 22:24 Discharge Plan Discharge Details Chief Complaint: PsychEval Clinical Impression: Suicidal ideation, Alcohol intoxication Primary Care Provider: Maggy Tello ED Provider: Bubba Suh Home Meds and New Rx's Prescriptions: No Action amlodipine 5 mg tablet 5 mg PO DAILY Qty: 90 0RF Hold Instructions: Pt Stopped/Never Started duloxetine 60 mg capsule,delayed release(DR/EC) 60 mg PO DAILY Qty: 90 0RF cholecalciferol (vitamin D3) 1,250 mcg (50,000 unit) capsule 1,250 mcg PO QWEEK Qty: 12 3RF albuterol sulfate 90 mcg/actuation HFA aerosol inhaler 2 puff inhalation Q6H PRN (Reason: shortness of breath or wheezing) Qty: 8.5 6RF Patient Comments: pt states not taking Stiolto Respimat 2.5-2.5 mcg/actuation mist 2 puff inhalation DAILY Qty: 4 12RF Patient Comments: pt states not taking celecoxib 200 mg Capsule 200 mg PO BID 30 Days Qty: 60 0RF diclofenac sodium 3 % Gel 100 g topical QID Qty: 100 0RF Rx Instructions: apply to neck and back folic acid 1 mg Tablet 5 mg PO QAM 30 Days Qty: 150 0RF Rx Instructions: after 10 days, decrease folic acid to 1 mg daily magnesium gluconate 27 mg magnesium (500 mg) Tablet 500 mg PO DAILY 30 Days Qty: 30 0RF multivitamin [Multiple Vitamins] Tablet 1 tab PO QAM 30 Days Qty: 30 0RF thiamine mononitrate (vit B1) [Vitamin B-1 (mononitrate)] 100 mg Tablet 100 mg PO QAM 30 Days Qty: 30 0RF pantoprazole 40 mg Tablet,Delayed Release (Dr/Ec) 40 mg PO DAILY 30 Days Qty: 30 0RF Mag 64 64 mg Tablet,Delayed Release (Dr/Ec) 128 mg PO BID Qty: 28 0RF
--- NOTE | 2023-08-02 15:14 | CMSP_ITS ---
Date of service: 08/02/23 Time of Service: 15:14 Care Management Safety Plan Status Status: Voluntary Reason for Wait Reason for Wait: Inpatient Admission Safety Plan Safety Plan: CHIEF COMPLAINT: Ismael presents in the ED for intoxication and suicidal/homicidal ideation. Ismael has a history of depression, trauma and chronic pain. He reportedly attempted to shoot himself with a gun but the gun misfired. He additionally threatened to run his over with the car. Ismael is evaluated by Juanito [facility] reinforcing metal worker, and found to meet criteria for a voluntary psychiatric placement. [facility] will coordinate referrals to [facility] [place], [facility], [facility] and [facility] for review. Ismael will remain at [facility] and will be reassessed daily by [facility] until a bed is secured for him. CM will continue to follow. VOLUNTARY FOR INPATIENT PSYCHIATRIC STABILIZATION. Patient is appropriate in all interactions since arriving at [facility]; Pt has demonstrated appropriate coping and communication skills, has articulated his or her needs and concerns and is fully engaged during staff interactions. Safety plan has been established with patient, and care team, to adhere to patient goals, identify restrictions based on behavioral status, address nutrition, and determine allowed personal belongings, tools for hygiene and personal care. Determine level of activity including ambulation, level of supervision, visitors, and determine privileges based on behaviors and level of engagement by pt. SAFETY PLAN: 1. Will remain on suicide precautions. In Paper Clothes 2. Will remain in room under direct supervision of one-on-one staff at all times provided by [employer], SENIOR COMPLIANCE OFFICER, CATALYST CONCENTRATION OPERATOR bilingual operator. 3. May have paper cups, plates, finger foods as well as a cardboard spoon with which to eat meals. 4. Follow [facility] Management of the Admitted Behavioral Health Patient policy. 5. Shower permitted at RN discretion. 6. No personal belongings-soft items permitted at RN discretion. 7. Visitors: Per [facility] Visitor Policy and at RN discretion. 8. Activities: soft cart items, music tablet, television, and other activities at RN discretion. 9. Bathroom privileges with escort in the ED, available without limitation on Zone B. 10. Phone: contact limited to family at this time, via [facility] phone at RN discretion. 11. Due to VOLUNTARY status, if patient wishes to leave [facility], staff will contact [facility] Crisis Screener ([phone]) and On-Call Bagman/Woman ([phone]) as soon as possible. In the event of elopement, notify [facility] Police ([phone]). Patient is currently voluntarily at [facility] and seeking inpatient admission when a bed becomes available. [facility] Frontline Laboratory Chemical Assistant will continue seeking placement. Please contact the Information Security Bagman/Woman ([phone]) and [facility] Laboratory Chemical Assistant ([phone]) for any needed changes in the Safety Plan. Safety plan has been provided to interdepartmental care team.
--- NOTE | 2023-08-02 15:14 | PDOC.CMSAFE ---
Date of service: 08/02/23 Time of Service: 15:14 Care Management Safety Plan Status Status: Voluntary Reason for Wait Reason for Wait: Inpatient Admission Safety Plan Safety Plan: CHIEF COMPLAINT: Ismael presents in the ED for intoxication and suicidal/homicidal ideation. Ismael has a history of depression, trauma and chronic pain. He reportedly attempted to shoot himself with a gun but the gun misfired. He additionally threatened to run his over with the car. Ismael is evaluated by Juanito [facility] garment worker, and found to meet criteria for a voluntary psychiatric placement. [facility] will coordinate referrals to [facility], [facility], [facility] and [facility] for review. Ismael will remain at [facility] and will be reassessed daily by [facility] until a bed is secured for him. CM will continue to follow. VOLUNTARY FOR INPATIENT PSYCHIATRIC STABILIZATION. Patient is appropriate in all interactions since arriving at [facility]; Pt has demonstrated appropriate coping and communication skills, has articulated his or her needs and concerns and is fully engaged during staff interactions. Safety plan has been established with patient, and care team, to adhere to patient goals, identify restrictions based on behavioral status, address nutrition, and determine allowed personal belongings, tools for hygiene and personal care. Determine level of activity including ambulation, level of supervision, visitors, and determine privileges based on behaviors and level of engagement by pt. SAFETY PLAN: 1. Will remain on suicide precautions. In Paper Clothes 2. Will remain in room under direct supervision of one-on-one staff at all times provided by CPSO, PIECE HAND, CONDUIT CLEANER major donor coordinator. 3. May have paper cups, plates, finger foods as well as a cardboard spoon with which to eat meals. 4. Follow [facility] Management of the Admitted Behavioral Health Patient policy. 5. Shower permitted at RN discretion. 6. No personal belongings-soft items permitted at RN discretion. 7. Visitors: Per [facility] Visitor Policy and at RN discretion. 8. Activities: soft cart items, music tablet, television, and other activities at RN discretion. 9. Bathroom privileges with escort in the ED, available without limitation on Zone B. 10. Phone: contact limited to family at this time, via [facility] hospital phone at RN discretion. 11. Due to VOLUNTARY status, if patient wishes to leave [facility], staff will contact [facility] Crisis Screener ([phone]) and On-Call Terra Cotta Setter ([phone]) as soon as possible. In the event of elopement, notify [facility] Police ([phone]). Patient is currently voluntarily at [facility] and seeking inpatient admission when a bed becomes available. [facility] Frontline Dowel Maker will continue seeking placement. Please contact the Shipping Checker [place]ra [place]ta Setter ([phone]) and [facility] Dowel Maker ([phone]) for any needed changes in the Safety Plan. Safety plan has been provided to interdepartmental care team.
[2023-08-02 16:25] VITALS: BP 131/93; PULSE 114; RESP 20; O2SAT 99
[2023-08-02] MEDS: chlordiazePOXIDE 25 MG CAP 50 MG PO ×2 (16:43→19:40)
--- NOTE | 2023-08-02 19:17 | NUR.NOTE ---
Nursing Note: This RN assumed care of patient. Performed alcohol withdrawal assessment, score of 8. Patient complaining of neck and upper back pain between shoulder blades. Pt states this is a chronic issue. He is not sleeping well due to the pain. Pt states he has been dry heaving off and on. Denies vomiting. Pt ate approximately 75% of his dinner.
[2023-08-02] MEDS: Ibuprofen 600 MG TAB PO (19:40)
--- NOTE | 2023-08-02 21:37 | W.EDPROG ---
Date of service: 08/02/23 Time of Service: 19:30 Medical Decision Making patient awaiting inpatient psychiatric hospitalization, patient evaluated and scoring 8 on ciwa, he has been here for 30 hours and I feel he would benefit from scheduled librium overnight. I have also scheduled melatonin to help for sleep. hemodynamically he remains stable with no behavioral issues. Medical Records Medical records reviewed: Yes I reviewed the patient's medical records. Sign Out Sign Out Data: Sign Out Comment: Alcoholic, alcohol greater than 445, currently having suicidal ideation stating he will shoot himself in the head, and homicidal ideation stating that he will run over his . Pending sobriety and evaluation by mental health. Offered Zyprexa but patient has now refused. Last updated by Carlos Machuca DO at 08/01/23 15:32 Sign Out Comment: Patient here with SI, and HI. ETOH 446 at 1330 today, repeat at 2130, greater than 200. Ambulatory in department to with minimal assistance. Has received Ibuprofen and Lorazepam PO. Has not taken his normal home meds in unknown amount of time, patient states they don't work. Awaiting eval and disposition. Last updated by Aleshia Wynn NP at 08/01/23 22:24 Sign Out Comment: patient attempted suicide with gun, but gun misfired. eval'd by . on voluntary, currently seeking placement. medically cleared. meds ordered. history of chronic etoh abuse, ciwa q4 ordered. Last updated by Bubba Suh MD at 08/02/23 14:42 Discharge Plan Discharge Details Chief Complaint: PsychEval Clinical Impression: Suicidal ideation, Alcohol intoxication Primary Care Provider: Maggy Tello ED Provider: Daja Caraballo Home Meds and New Rx's Prescriptions: No Action amlodipine 5 mg tablet 5 mg PO DAILY Qty: 90 0RF Hold Instructions: Pt Stopped/Never Started duloxetine 60 mg capsule,delayed release(DR/EC) 60 mg PO DAILY Qty: 90 0RF cholecalciferol (vitamin D3) 1,250 mcg (50,000 unit) capsule 1,250 mcg PO QWEEK Qty: 12 3RF albuterol sulfate 90 mcg/actuation HFA aerosol inhaler 2 puff inhalation Q6H PRN (Reason: shortness of breath or wheezing) Qty: 8.5 6RF Patient Comments: pt states not taking Stiolto Respimat 2.5-2.5 mcg/actuation mist 2 puff inhalation DAILY Qty: 4 12RF Patient Comments: pt states not taking celecoxib 200 mg Capsule 200 mg PO BID 30 Days Qty: 60 0RF diclofenac sodium 3 % Gel 100 g topical QID Qty: 100 0RF Rx Instructions: apply to neck and back folic acid 1 mg Tablet 5 mg PO QAM 30 Days Qty: 150 0RF Rx Instructions: after 10 days, decrease folic acid to 1 mg daily magnesium gluconate 27 mg magnesium (500 mg) Tablet 500 mg PO DAILY 30 Days Qty: 30 0RF multivitamin [Multiple Vitamins] Tablet 1 tab PO QAM 30 Days Qty: 30 0RF thiamine mononitrate (vit B1) [Vitamin B-1 (mononitrate)] 100 mg Tablet 100 mg PO QAM 30 Days Qty: 30 0RF pantoprazole 40 mg Tablet,Delayed Release (Dr/Ec) 40 mg PO DAILY 30 Days Qty: 30 0RF Mag 64 64 mg Tablet,Delayed Release (Dr/Ec) 128 mg PO BID Qty: 28 0RF
[2023-08-02] MEDS: Melatonin 3 MG TAB PO (22:40)
[2023-08-03 06:44] VITALS: BP 132/85; PULSE 80; RESP 18; TEMP 36.4; O2SAT 100
[2023-08-03] MEDS: Ibuprofen 600 MG TAB PO (06:46)
--- NOTE | 2023-08-03 07:08 | W.EDPROG ---
Date of service: 08/03/23 Time of Service: 07:08 Medical Decision Making Patient resting comfortably no acute distress no events overnight. Remains voluntary for inpatient placement. Sign Out Sign Out Data: Sign Out Comment: Alcoholic, alcohol greater than 445, currently having suicidal ideation stating he will shoot himself in the head, and homicidal ideation stating that he will run over his . Pending sobriety and evaluation by mental health. Offered Zyprexa but patient has now refused. Last updated by Carlos Machuca DO at 08/01/23 15:32 Sign Out Comment: Patient here with SI, and HI. ETOH 446 at 1330 today, repeat at 2130, greater than 200. Ambulatory in department to with minimal assistance. Has received Ibuprofen and Lorazepam PO. Has not taken his normal home meds in unknown amount of time, patient states they don't work. Awaiting eval and disposition. Last updated by Aleshia Wynn NP at 08/01/23 22:24 Sign Out Comment: patient attempted suicide with gun, but gun misfired. eval'd by . on voluntary, currently seeking placement. medically cleared. meds ordered. history of chronic etoh abuse, ciwa q4 ordered. Last updated by Bubba Suh MD at 08/02/23 14:42 Sign Out Comment: scored 8 on ciwa, responded well to librium earlier today, will schedule qid, should taper, also added melatonin. Last updated by Daja Caraballo NP at 08/02/23 21:45 Discharge Plan Discharge Details Chief Complaint: PsychEval Clinical Impression: Suicidal ideation, Alcohol intoxication Primary Care Provider: Maggy Tello ED Provider: Daja Caraballo Home Meds and New Rx's Prescriptions: No Action amlodipine 5 mg tablet 5 mg PO DAILY Qty: 90 0RF Hold Instructions: Pt Stopped/Never Started duloxetine 60 mg capsule,delayed release(DR/EC) 60 mg PO DAILY Qty: 90 0RF cholecalciferol (vitamin D3) 1,250 mcg (50,000 unit) capsule 1,250 mcg PO QWEEK Qty: 12 3RF albuterol sulfate 90 mcg/actuation HFA aerosol inhaler 2 puff inhalation Q6H PRN (Reason: shortness of breath or wheezing) Qty: 8.5 6RF Patient Comments: pt states not taking Stiolto Respimat 2.5-2.5 mcg/actuation mist 2 puff inhalation DAILY Qty: 4 12RF Patient Comments: pt states not taking celecoxib 200 mg Capsule 200 mg PO BID 30 Days Qty: 60 0RF diclofenac sodium 3 % Gel 100 g topical QID Qty: 100 0RF Rx Instructions: apply to neck and back folic acid 1 mg Tablet 5 mg PO QAM 30 Days Qty: 150 0RF Rx Instructions: after 10 days, decrease folic acid to 1 mg daily magnesium gluconate 27 mg magnesium (500 mg) Tablet 500 mg PO DAILY 30 Days Qty: 30 0RF multivitamin [Multiple Vitamins] Tablet 1 tab PO QAM 30 Days Qty: 30 0RF thiamine mononitrate (vit B1) [Vitamin B-1 (mononitrate)] 100 mg Tablet 100 mg PO QAM 30 Days Qty: 30 0RF pantoprazole 40 mg Tablet,Delayed Release (Dr/Ec) 40 mg PO DAILY 30 Days Qty: 30 0RF Mag 64 64 mg Tablet,Delayed Release (Dr/Ec) 128 mg PO BID Qty: 28 0RF
[2023-08-03] MEDS: chlordiazePOXIDE 25 MG CAP 50 MG PO ×2 (07:44→12:56)
[2023-08-03] MEDS: amLODIPine 5 MG TAB PO (07:44)
[2023-08-03] MEDS: Multivitamin TAB 1 TAB PO (07:44)
--- NOTE | 2023-08-03 13:24 | W.EDPROG ---
Date of service: 08/03/23 Time of Service: 13:24 Medical Decision Making 8:00 -- Care signed out by Dr. Beckett. Patient here for suicidal thoughts awaiting voluntary placement. Patient also with history of alcohol dependence. He has been monitored with [facility] protocol and is being given Librium. Of note, patient does have baseline tremor that is unchanged 1200 --Per nursing, patient requesting to leave. I reassessed the patient and we had an extended conversation. Patient notes that he is not suicidal or homicidal. He notes that he had stated he was suicidal because he was told to state this by someone who works in healthcare in order to better ensure hospitalization. He states his motivation for coming to the hospital was to seek treatment for alcohol dependence and to secure treatment for his chronic pain. Patient states he is only drinking alcohol to treat his chronic pain. Patient denies suicidality and homicidality. I called and spoke with the crisis screener and updated him as to my recent conversation with the patient. He will evaluate the patient. 3795 --patient was seen by crisis screener who knows him from prior evaluation. Crisis screener does not feel patient warrants inpatient admission and can be safely discharged home with safety plan which has been established with the patient. Plan for discharge. I will prescribe additional Librium to treat withdrawal. I have contacted [facility] to engage with the patient. I will ask care management to reach out to help with establishing PCP. Patient will have follow-up with [facility] human services per crisis screener. -- I will refer the patient to palliative care given ongoing chronic pain and difficulty with managing pain. Sign Out Sign Out Data: Sign Out Comment: Alcoholic, alcohol greater than 445, currently having suicidal ideation stating he will shoot himself in the head, and homicidal ideation stating that he will run over his . Pending sobriety and evaluation by mental health. Offered Zyprexa but patient has now refused. Last updated by Carlos Machuca DO at 08/01/23 15:32 Sign Out Comment: Patient here with SI, and HI. ETOH 446 at 1330 today, repeat at 2130, greater than 200. Ambulatory in department to with minimal assistance. Has received Ibuprofen and Lorazepam PO. Has not taken his normal home meds in unknown amount of time, patient states they don't work. Awaiting eval and disposition. Last updated by Aleshia Wynn NP at 08/01/23 22:24 Sign Out Comment: patient attempted suicide with gun, but gun misfired. eval'd by . on voluntary, currently seeking placement. medically cleared. meds ordered. history of chronic etoh abuse, ciwa q4 ordered. Last updated by Bubba Suh MD at 08/02/23 14:42 Sign Out Comment: scored 8 on ciwa, responded well to librium earlier today, will schedule qid, should taper, also added melatonin. Last updated by Daja Caraballo NP at 08/02/23 21:45 Sign Out Comment: SI, HI, voluntary; hx of etoh abuse Last updated by Eliezer Beckett MD at 08/03/23 07:48 Discharge Plan Disposition Patient Disposition: Home Condition: Stable Discharge Details Clinical Impression: Alcohol dependence, Chronic pain Primary Care Provider: Maggy Tello ED Provider: Poncho Franks Home Meds and New Rx's Prescriptions: New chlordiazepoxide HCl 25 mg capsule See Rx Instructions .ROUTE .COMPLEX PRNQty: 10 0RF Rx Instructions: Day 1: 50 mg PO qHS Day 2: 25 mg PO QID Day 3: 25mg PO BID Day 4: 25mg PO qHS Continued amlodipine 5 mg tablet 5 mg PO DAILY Qty: 90 0RF Hold Instructions: Pt Stopped/Never Started duloxetine 60 mg capsule,delayed release(DR/EC) 60 mg PO DAILY Qty: 90 0RF cholecalciferol (vitamin D3) 1,250 mcg (50,000 unit) capsule 1,250 mcg PO QWEEK Qty: 12 3RF albuterol sulfate 90 mcg/actuation HFA aerosol inhaler 2 puff inhalation Q6H PRN (Reason: shortness of breath or wheezing) Qty: 8.5 6RF Patient Comments: pt states not taking Stiolto Respimat 2.5-2.5 mcg/actuation mist 2 puff inhalation DAILY Qty: 4 12RF Patient Comments: pt states not taking celecoxib 200 mg Capsule 200 mg PO BID 30 Days Qty: 60 0RF diclofenac sodium 3 % Gel 100 g topical QID Qty: 100 0RF Rx Instructions: apply to neck and back folic acid 1 mg Tablet 5 mg PO QAM 30 Days Qty: 150 0RF Rx Instructions: after 10 days, decrease folic acid to 1 mg daily magnesium gluconate 27 mg magnesium (500 mg) Tablet 500 mg PO DAILY 30 Days Qty: 30 0RF multivitamin [Multiple Vitamins] Tablet 1 tab PO QAM 30 Days Qty: 30 0RF pantoprazole 40 mg Tablet,Delayed Release (Dr/Ec) 40 mg PO DAILY 30 Days Qty: 30 0RF thiamine mononitrate (vit B1) [Vitamin B-1 (mononitrate)] 100 mg Tablet 100 mg PO QAM 30 Days Qty: 30 0RF Mag 64 64 mg Tablet,Delayed Release (Dr/Ec) 128 mg PO BID Qty: 28 0RF Discharge Instructions Instructions: Chronic Pain (ED), Alcohol Dependence (ED) Additional Instructions: Please take medications as prescribed. Please follow-up with [facility] services. Please follow-up with a oil recovery unit operator at [facility]. Please follow-up with your primary care physician. Call today to arrange timely follow-up. Please follow-up with palliative care. Return to the ER immediately for any worsening or new concerning symptoms. Referrals: [facility] [Provider Group] [facility] [Outside] [facility] [Outside] Maggy Tello NP [Primary Care Provider] -
--- NOTE | 2023-08-03 14:34 | NUR.NOTE ---
Addendum entered by Kamille Solano 08/03/23 15:29: Referral faxed to Palliative Care for chronic pain, to be seen AKIL. Original Note: Referral given to Care Management for needs PCP, establish care, alcohol withdrawal, suicidal thoughts/ next week. Nursing Note:
[2023-08-03 15:45] VITALS: BP 127/84; PULSE 120; RESP 18; O2SAT 100
--- NOTE | 2023-08-03 16:23 | PDOC.CMPRO ---
Date of service: 08/03/23 Time of Service: 16:23 Care Management Progress Note Progress Note Text Progress Note Text: DISPOSITION: Ismael is assessed by Juanito [facility] Crisis Screener. He is denying SI/HI and is able to enter into a safety plan. After meeting with a [facility] assistant baseball coach, Ismael is discharged home. He will follow up with his PCP, community providers and plan of care as instructed. He is transported home by family via private vehicle.
--- NOTE | 2023-08-04 10:04 | PDOC.MHCN ---
Date of service: 08/03/23 Time of Service: 01:00 PHQ-9 Over the last 2 weeks, how often have you been bothered by any of the following problems? 1. Little interest or pleasure in doing things: not at all 2. Feeling down, depressed, or hopeless: not at all 3. Trouble falling or staying asleep, or sleeping too much: not at all 4. Feeling tired or having little energy: several days 5. Poor appetite or overeating: not at all 6. Feeling bad about yourself - or that you are a failure or have let yourself and your family down: several days 7. Trouble concentrating on things, such as reading the newspaper or watching television: not at all 8. Moving or speaking so slowly that other people could have noticed? - Or the opposite - being so fidgety or restless that you have been moving around a lot more than usual: several days 9. Thoughts that you would be better off or of hurting yourself in some way: not at all Total score: 3 Source: Developed by Drs. Elvin Coffey, Daya Mckeon, Ankit Fajardo and colleagues, with an educational antelmo from [employer]. Suicide Severity Rate CSSRS2 Have you been thinking about how you might do this?: No Have you had these thoughts and had some intention of acting on them?: No Have you started to work out or worked out the details of how to kill yourself? Do you intend to carry out this plan?: No CSSRS3 Have you ever done anything, started to do anything or prepared to do anything to end your life?: No CSSRS4 Was this within the past three months?: No Screening Score Total Score: 0 Screening: Negative Mental Health Emergency Note Release [facility] release signed:: Yes Reason for Visit physical pain, not having pain meds, and using alcohol for pain relief In the last 2 weeks has the pt presented for ES prior to today?: No Client Information Well Housed: Yes Risk: Does risk to harm exist?: No Risk: Low Risk Asssessment/Mental Status Appearance: Other Attitude: Cooperative and Friendly Behavior: Unremarkable Speech: Normal Affect: Cogruent with mood Mood: Happy and Anxious Thought process: Unremarkable Hallucinations: No Delusions: No Attention: Unremarkable Perception: Not impaired Orientation: Fully orientated Memory: Intact Insight: Fair Judgement: Fair Neurovegetative Symptoms Sleep: Decrease Appetitie: No change Interests: No change Energy: Decrease Libido: Not applicable Substance Use: ETOH dependence Drug Issues: Dependence Do you use nicotine?: No Have you used substances in the last 7 days?: yes, alcohol Additional Issues: Assaultive/Threatening Behavior: No Medical Concerns: Yes Client engaged in active self harm w/weapon: No Threatening to run away: No Child reported abuse/neglect: No Voluntarily presenting for services: Yes Domestic violence is a concern: No Extreme Psychosis or extreme behavior is present: No Impression Client suffers from an array of physical ailments. He lost his doctor who prescribed pain medications to him due to testing positive for alcohol abuse and misusing his medication as it does not always work as intended and feels he needs more. Resources Reisabella reviewed and given:: [phone] and Other Plan/Disposition Recommended Disposition: [facility] Services [facility] Services: Other and Therapy. Plan: Client wants to be discharged from the hospital. He was informed that referrals have been sent out on his behalf for inpatient treatment. However he feels he can manage with having outpatient supports. Discharged as of today with referrals for substance misuse. Reports/communication Outcome discussed with: ED/Personnel
== END 2023-08-03 15:50 | disposition home or self-care (01) ==
PROVIDERS: Registered Nurse Emergency; Student in an Organized Health Care Education/Training Program; Emergency Provider Student in an Organized Health Care Education/Training Program; PCP Nurse Practitioner
DX: R45.851 Suicidal ideations (principal); F10.229 Alcohol dependence with intoxication, unspecified; G89.29 Other chronic pain; J44.9 Chronic obstructive pulmonary disease, unspecified; F32.A Depression, unspecified; F43.10 Post-traumatic stress disorder, unspecified; Y90.8 Blood alcohol level of 240 mg/100 ml or more; K21.9 Gastro-esophageal reflux disease without esophagitis; Z79.899 Other long term (current) drug therapy; Z88.8 Allergy status to other drugs, medicaments and biological substances; Z91.041 Radiographic dye allergy status; Z72.0 Tobacco use; R51.9 Headache, unspecified; R45.850 Homicidal ideations
CPT/HCPCS: 00123; 36415; 80053; 80307; 96127; 99285; 80320; 80329; 81003; 81015; 84443; 85025